=== PATIENT | male | born 1945 | race African-American/Black ===

== ENCOUNTER 2017-09-20 11:06 | Emergency (ER) | payer MEDICARE ==
--- NOTE | 2017-09-20 11:58 | RAD ---
LEFT FOOT 3 VIEWS: Date: 09/21/17 HISTORY: Injury. Pain. Fall yesterday. COMPARISON: None. FINDINGS: There are vascular calcifications. No significant soft tissue swelling. No fracture. Joint spaces are preserved. Lisfranc alignment is maintained. IMPRESSION: No post-traumatic change. POS: [facility]
--- NOTE | 2017-09-20 13:52 | RAD ---
3 VIEWS LEFT ANKLE: Date: 09/20/17 HISTORY: Pain. Fall. Trauma. COMPARISON: None. FINDINGS: Vascular calcifications are noted. Ankle mortise appears to be intact. Joint spaces appear to be pres erved. No significant soft tissue swelling. There is diffuse bone demineralization. No fracture. IMPRESSION: No post-traumatic change. If patient is still experiencing pain or point tenderness, further evaluation with MRI may be benefic ial. POS: [facility]
== END 2017-09-20 13:06 | disposition home or self-care (01) ==
LOC: ERS 11:06
DX: S93.412A Sprain of calcaneofibular ligament of left ankle, initial encounter (principal); I25.10 Atherosclerotic heart disease of native coronary artery without angina pectoris; I11.0 Hypertensive heart disease with heart failure; I50.9 Heart failure, unspecified; E11.9 Type 2 diabetes mellitus without complications; F17.210 Nicotine dependence, cigarettes, uncomplicated; Z99.2 Dependence on renal dialysis; Z79.899 Other long term (current) drug therapy; X50.1XXA Overexertion from prolonged static or awkward postures, initial encounter

== ENCOUNTER 2018-05-09 16:53 | Observation (INO) | payer MEDICARE, MEDICAID ==
[2018-05-09 18:02] LABS: #Basophils 0.1 thou/uL (0.0-0.2); #Eosinphils 0.1 thou/uL (0.0-0.7); #Lymphocytes 1.6 thou/uL (1.20-3.40); #Monocytes 0.5 thou/uL (0.11-0.59); #Neutrophils 3.7 thou/uL (1.40-6.50); %Basophils 1.1 % (0.0-1.0); %Eosinophils 1.5 % (0.0-10.0); %Lymphocytes 26.4 % (21.0-51.0); %Monocytes 7.9 % (0.0-10.0); Hemoglobin 13.9 g/dL (14.0-18.0); Mean Corpuscular Hemoglobin 29.3 pg (27.0-31.0); Mean Corpuscular Volume 86.3 fL (78.0-98.0); Mean Platelet Volume 8.7 fL (7.4-10.4); Platelet Count 120 thou/uL (130-400); Red Blood Cell (RBC) Count 4.74 mill/uL (4.70-6.10); White Blood Cell (WBC) Count 5.9 thou/uL (4.8-10.8)
[2018-05-09 18:27] LABS: ALT (SGPT) 9 U/L (8-55); AST (SGOT) 14 U/L (5-34); Alkaline Phosphatase 76 U/L (40-150); Anion Gap 9 mmol/L (10-20); BUN (Urea Nitrogen) 24 mg/dL (8.4-25.7); Bilirubin, Total 0.5 mg/dL (0.2-1.2); Calc. Creatinine Clearance 0 mL/min (70-130); Calcium 9.4 mg/dL (7.8-10.44); Carbon Dioxide 36 mmol/L (23-31); Chloride 98 mmol/L (98-107); Estimated GFR-MDRD 16; Glucose 157 mg/dL (83-110); Lipase 24 U/L (8-78); Potassium 3.9 mmol/L (3.5-5.1); Sodium 139 mmol/L (136-145)
--- NOTE | 2018-05-09 18:30 | RAD ---
PORTABLE CHEST: 05/09/18 INDICATION: Syncope. Lung field are clear. No infiltrate or effusion. Heart size is mildly enlarged. Postop sternotomy dai nge. Vascular markings normal. IMPRESSION: No acute process. POS: [facility]
[2018-05-09 18:48] LABS: CKMB 1.6 ng/mL (0-6.6)
[2018-05-09 21:22] VITALS: BMI 23.1
[2018-05-09 21:54] LABS: Troponin I 0.117 ng/mL (< 0.028)
[2018-05-09] MEDS ORDERED: traMADol HCl 50 MG TAB PO PRN (23:27)
[2018-05-09] MEDS ORDERED: cloNIDine 0.1 MG TAB PO PRN (23:27)
[2018-05-09] MEDS ORDERED: Ibuprofen 600 MG TAB PO PRN (23:27)
[2018-05-09] MEDS ORDERED: PROVENTIL INHALER 6.7 G (200 INHALATIONS) INH PRN (23:27)
[2018-05-09] MEDS ORDERED: hydrALAZINE 20 MG/ML VIAL SLOW IVP PRN (23:30)
[2018-05-09] MEDS ORDERED: traZODone HCl 50 MG TAB PO SCH (23:45)
[2018-05-09] MEDS ORDERED: Atorvastatin Calcium 20 MG TAB PO SCH (23:45)
[2018-05-09] MEDS ORDERED: hydrALAZINE 25 MG TAB PO SCH (23:45)
[2018-05-10 00:48] LABS: Troponin I 0.129 ng/mL (< 0.028)
[2018-05-10] MEDS ORDERED: HumaLOG 300 UNITS/3 ML VIAL SC PRN ×2 (08:09)
[2018-05-10] MEDS ORDERED: Dextrose 50% Abboject 50 ML SYRINGE SLOW IVP PRN (08:09)
[2018-05-10] MEDS ORDERED: Dextrose 5% in Water 1,000 ML IV PRN (08:09)
[2018-05-10] MEDS ORDERED: Donepezil HCl 10 MG TAB PO SCH (09:00)
[2018-05-10] MEDS ORDERED: VIT B COMPLEX AND C PO SCH (09:00)
[2018-05-10] MEDS ORDERED: Prevnar 13-Val Conj/PF 0.5 ML SYRINGE IM ONE (09:00)
[2018-05-10] MEDS ORDERED: FOLIC ACID PO SCH (09:00)
[2018-05-10] MEDS ORDERED: Folic Acid/Vit B Comp W-C PO SCH (09:00)
[2018-05-10] MEDS: Carvedilol 6.25 MG TAB PO SCH ×2 (10:06→16:39)
[2018-05-10] MEDS: hydrALAZINE 25 MG TAB PO SCH ×2 (10:07→16:38)
--- NOTE | 2018-05-10 10:18 | CON ---
DATE OF CONSULTATION: 05/09/2018 NEPHROLOGY CONSULTATION REASON FOR CONSULTATION: End-stage renal disease, for maintenance hemodialysis. HISTORY OF PRESENT ILLNESS: This is a 72-year-old gentleman who during dialysis, had nausea, vomiting, and diaphoresis and felt like he was going to pass out. The patient denies no headache, numbness, tingling, or weakness. The patient was not hypotensive. The patient was given IV fluids and resuscitation and felt fine. PAST MEDICAL HISTORY: 1. Hypertension. 2. End-stage renal disease, on dialysis. 3. History of missing dialysis. 4. History of congestive heart failure. 5. Diabetes mellitus. 6. Appendectomy. 7. Small bowel obstruction. 8. History of CABG. 9. History of tobacco use. SOCIAL HISTORY: No alcohol or drug use. FAMILY HISTORY: Negative for ESRD. ALLERGIES: REVIEWED. MEDICATIONS: Home medications list reviewed. REVIEW OF SYSTEMS: Fifteen-point review of systems was performed and negative except for positives noted above. NECK: No swelling or lumps. NOSE: No epistaxis or discharge. EYES: No diplopia or pain. MUSCULOSKELETAL: No joint pain. NEUROPSYCHIATRIC SYSTEMS: No suicidal ideation. No ideation. SKIN: Denies any rash or ulcer. CONSTITUTIONAL: No fever or chills. PHYSICAL EXAMINATION: GENERAL: The patient is awake and alert. VITAL SIGNS: Afebrile, pulse 61, breathing 16, and blood pressure 166/85. HEAD/NECK: Normocephalic. Atraumatic. EYES: EOMI. No deformity. EARS: Clear. No ulcers. NOSE: Intact. No lesions. MOUTH: Clear. No discharge. THROAT: Clear. No exudate. LUNGS: Clear. No crackles. CARDIAC: S1, S2. No rub. ABDOMEN: Benign. Bowel sounds positive. GENITALIA/RECTUM: Hay absent. BACK/EXTREMITIES: Edema 0+. NEUROLOGICAL: Alert and motor intact. LABORATORY DATA: Labs showed potassium 3.9. ASSESSMENT AND PLAN: 1. Stage 6 chronic kidney disease, plan hemodialysis on Saturday, Saturday, and Saturday. 2. Hypertension, stable. 3. Anemia, stable. 4. Medications based on GFR are appropriate. Job ID: [id number]
[2018-05-10 11:05] LABS: #Basophils 0.1 thou/uL (0.0-0.2); #Eosinphils 0.1 thou/uL (0.0-0.7); #Lymphocytes 2.5 thou/uL (1.20-3.40); #Monocytes 0.4 thou/uL (0.11-0.59); #Neutrophils 3.3 thou/uL (1.40-6.50); %Basophils 0.8 % (0.0-1.0); %Eosinophils 1.6 % (0.0-10.0); %Lymphocytes 38.6 % (21.0-51.0); %Monocytes 6.9 % (0.0-10.0); %Neutrophils 52.1 % (42.0-75.0); Hemoglobin 13.4 g/dL (14.0-18.0); Mean Corpuscular HGB CONC 34.6 g/dL (32.0-36.0); Mean Corpuscular Hemoglobin 29.8 pg (27.0-31.0); Mean Platelet Volume 8.7 fL (7.4-10.4); Platelet Count 120 thou/uL (130-400); Red Blood Cell (RBC) Count 4.52 mill/uL (4.70-6.10); White Blood Cell (WBC) Count 6.4 thou/uL (4.8-10.8)
[2018-05-10 11:20] LABS: ALT (SGPT) 7 U/L (8-55); AST (SGOT) 13 U/L (5-34); Albumin 3.7 g/dL (3.4-4.8); Alkaline Phosphatase 67 U/L (40-150); Anion Gap 13 mmol/L (10-20); BUN (Urea Nitrogen) 29 mg/dL (8.4-25.7); Bilirubin, Total 0.6 mg/dL (0.2-1.2); Calc. Creatinine Clearance 14 mL/min (70-130); Calcium 9.2 mg/dL (7.8-10.44); Carbon Dioxide 30 mmol/L (23-31); Chloride 102 mmol/L (98-107); Estimated GFR-MDRD 13; Globulin 3.4 g/dL (2.4-3.5); Glucose 100 mg/dL (83-110); Potassium 3.4 mmol/L (3.5-5.1); Protein, Total 7.1 g/dL (5.8-8.1)
[2018-05-10 11:22] LABS: Sodium 142 mmol/L (136-145)
--- NOTE | 2018-05-10 12:20 | PRG ---
DATE OF SERVICE: 05/10/2018 SUBJECTIVE: A 72-year-old gentleman, being seen for end-stage renal disease. The patient denies nausea, vomiting, or chest pain. OBJECTIVE: GENERAL: On examination, the patient is awake and alert. VITAL SIGNS: Afebrile, pulse 68, breathing 16, blood pressure 139/65. GENERAL APPEARANCE AND MENTAL STATUS: Fair. HEAD/NECK: Normocephalic. Atraumatic. EYES: EOMI. No deformity. EARS: Clear. No ulcers. NOSE: Intact. No lesions. MOUTH: Clear. No discharge. THROAT: Clear. No exudate. LUNGS: Clear. No crackles. CARDIAC: S1, S2. No rub. ABDOMEN: Benign. Bowel sounds positive. GENITALIA/RECTUM: Hay absent. BACK/EXTREMITIES: Edema 0+. NEUROLOGICAL: Alert and motor intact. LABORATORY DATA: Labs showed potassium 3.9. ASSESSMENT AND PLAN: 1. chronic kidney disease, stable. 2. Hypertension, stable. 3. for dialysis. Job ID: [id number]
--- NOTE | 2018-05-10 13:38 | EKG ---
Test Reason : Blood Pressure : / mmHG Vent. Rate : 055 BPM Atrial Rate : 055 BPM P-R Int : 246 ms QRS Dur : 156 ms QT Int : 508 ms P-R-T Axes : 042 -42 257 degrees QTc Int : 485 ms Sinus bradycardia with 1st degree A-V block Left axis deviation Left ventricular hypertrophy with QRS widening Inferior infarct , age undetermined Abnormal ECG Unchanged from 05/26/2014 Confirmed by BRENDA SKAGGS DO ([id number]), newspaper copy editor MARY SILVESTRE ([id number]) on 05/10/2018 1:37:59 PM Referred By: Confirmed By:BRENDA SKAGGS DO
[2018-05-10 16:14] VITALS: BP 144/68; TEMP 97.9
--- NOTE | 2018-05-10 20:20 | CON ---
DATE OF CONSULTATION: 05/10/2018 NEUROLOGY CONSULT REFERRING PHYSICIAN: Neal Milligan MD, certified surgical assistant. REASON FOR REFERRAL: Passing out and urination during dialysis. CHIEF COMPLAINT: Passing out during dialysis. HISTORY OF PRESENT ILLNESS: This is a 72-year-old male, who has been on dialysis for about 5 years. His is also present. He has passed out altogether about 4 to 5 times during dialysis over the years. He states that he does not pass out at any other time. He says that this passing out sensation is accompanied by feeling very nauseated and he may break out into a sweat. He may throw up when it happens and he may lose control of his bladder. He is only out for a few seconds and he knows where he is when he comes to. There was no tonic-clonic activity. His chronic medical problems include coronary artery disease, chronic renal failure, diabetes, and hypertension. He also has a history of CABG. PAST MEDICAL HISTORY: Hypertension; end-stage renal disease, on dialysis; congestive heart failure; diabetes; appendectomy; and CABG. SOCIAL HISTORY: He used to smoke. No current alcohol or drug abuse. FAMILY HISTORY: The patient does not know of any familial diseases. REVIEW OF SYSTEMS: A 15-point review was performed and is negative except for the passing out and chronic renal failure. Also his states that he has been losing his memory over the years. The patient used to box a lot and had some head injuries. He is currently on Aricept. PHYSICAL EXAMINATION: GENERAL: He is awake and alert, talkative, pleasant. VITAL SIGNS: Temperature is 98.3, pulse is 60, respiratory rate 16, O2 saturation is 97%, and blood pressure 127/66. HEENT: Negative. LUNGS: Clear. HEART: No murmurs. EXTREMITIES: No clubbing, cyanosis, or edema. SKIN: No rashes. JOINTS: No swelling. NEUROLOGICAL: He is awake, alert, and oriented x3. Cranial nerves 2 through 12 tested normally. Pupils 2 mm and reactive. Discs sharp. Motor; 5/5 strength in the arms and legs. DTRs 2+. Toes downgoing. Sensation is normal to light touch. Coordination, [id number] and [id number] is normal. Review of his old chart shows that he had a CT of the head in 2014, which was negative. LABORATORY DATA: Current labs on 05/10/2018 shows hemoglobin of 13.4, hematocrit 38.8, and platelet count slightly low at 120,000. Chemistries showed, on 07/11/2017, sodium of 142, potassium 3.4, chloride 102, CO2 of 30, BUN is 29, creatinine is 5.40. Estimated GFR is 13. Glucose is 271, calcium 9.2, total bilirubin 0.6, AST 13, ALT 7. Total serum protein is 7.1, albumin 3.7. MEDICATIONS: Current medications are; 1. Albuterol if needed. 2. Lipitor. 3. Coreg. 4. Aricept 10 mg a day. 5. Hydralazine 25 mg p.o. three times a day. IMPRESSION: His episodes of passing out are much more consistent with vasovagal syncope rather than with any seizure disorder or transient ischemic attack or cerebrovascular accident. Consider possibility of becoming volume depleted, which may result in a vasovagal attack. Consider also maybe he has bradycardia. Note that, he does have an EKG on the chart that was read as showing sinus bradycardia with atrial rate of 55 beats per minute with first-degree AV block. There were some cardiac enzymes that were elevated. Troponin I was 0.126, another one was 0.117, and another one 0.129. Note that he is on telemetry and an echocardiogram is being done at this time. Episodes of syncope, more likely related to vasovagal or bradycardia attacks or hypertension attacks, really not consistent at all with seizures or transient ischemic attacks or strokes. Discussed with the patient no further neurological workup is indicated now. Note, attention to cardiac causes or possibly becoming dehydrated during the dialysis discussed with the patient and his . No further neurological recommendations. We will sign off. Job ID: [id number]
[2018-05-10] MEDS ORDERED: traZODone HCl 50 MG TAB PO SCH (21:00)
[2018-05-10] MEDS ORDERED: Atorvastatin Calcium 20 MG TAB PO SCH (21:00)
--- NOTE | 2018-05-10 21:59 | HP ---
CHIEF COMPLAINT: Nausea, vomiting, and diarrhea. HISTORY OF PRESENT ILLNESS: This is a 72-year-old male with past medical history of end-stage renal disease, on hemodialysis Mondays and Fridays; coronary artery disease; CHF; type 2 diabetes mellitus; hypertension; presenting with nausea, vomiting, and dizziness. Per the patient, he was getting dialysis when he started to feel dizzy and the patient stated that he lost consciousness for a brief period a few seconds and regained consciousness. The patient stated that he also vomited x2, nonbilious nonbloody vomitus. The patient stated that this brought him to the hospital. At this time, the patient states that he has been feeling much better. He does not have any fever, chills, nausea, vomiting, headaches, dizziness, chest pain, palpitations, and abdominal pain. ED COURSE: In the ED, the patient was given aspirin 324, and the patient's blood pressure was checked, which was 173/78. The patient was then admitted to telemetry observation to be further monitored. REVIEW OF SYSTEMS: Positive for nausea, vomiting, and dizziness, otherwise as documented in the HPI. All other systems were reviewed and are negative. PAST MEDICAL HISTORY: 1. End-stage renal disease, on hemodialysis Mondays and Fridays. 2. Coronary artery disease. 3. Congestive heart failure. 4. Type 2 diabetes mellitus. 5. Hypertension. SURGICAL HISTORY: Appendectomy, small bowel obstruction, surgical history of coronary artery bypass and graft x2 vessels, left upper arm AV fistula. SOCIAL HISTORY: The patient denies any drug use. Denies any alcohol use. The patient used to smoke one pack per day. FAMILY HISTORY: Reviewed and noncontributory. ALLERGIES: ATIVAN AND LORAZEPAM. CURRENT MEDICATIONS: The patient is on, 1. Aspirin 325 mg. 2. Carvedilol 12.5 mg. 3. Clonidine 0.1 mg. 4. Dialyvite 800. 5. Famotidine. 6. Glipizide 2.5 mg. 7. Hydralazine mg b.i.d. 8. Sertraline 50 mg daily. 9. Atorvastatin 20 mg. PHYSICAL EXAMINATION: VITAL SIGNS: Blood pressure 173/78, pulse is 57, respiratory rate of 16, temperature of 97.7, and respiratory rate of 16. GENERAL: The patient is alert and oriented x3, not in acute distress. The patient is able to speak in full sentences. HEENT: Normocephalic, atraumatic. Pupils are equally round and reactive to light. Extraocular movements are intact. No scleral icterus. No conjunctival pallor. Mucous membranes are moist. LUNGS: Clear to auscultation bilaterally. No wheezing, no rales, no rhonchi appreciated. CARDIAC: Positive S1, S2, bradycardic. ABDOMEN: Soft, nontender, and nondistended. Positive bowel sounds in all quadrants. No abdominal distention. No peritoneal signs. No rigidity. No guarding. EXTREMITIES: The patient has left upper extremity fistula noted. The patient does have good motor strength and good pulses bilaterally in the upper extremities. At the lower extremities, the patient has no edema. The patient has good strength bilaterally at the lower extremity. NEUROLOGIC: Cranial nerves II through XII grossly intact. No neurologic deficits noted. SKIN: Warm, dry, and intact. DIAGNOSTIC DATA: EKG shows sinus bradycardia. Imaging; chest x-ray of the chest shows no cardiomegaly, no CHF, no effusions, no acute process. Labs; WBC is within normal limits. Chemistries, pertinent positive, creatinine is 4.45, carbon dioxide of 36. Troponin 0.126, 0.117, 0.129. Lipase is 24. ASSESSMENT AND PLAN: This is a 72-year-old male, presenting with dizziness, nausea and vomiting, likely due to neurocardiogenic cause. At this point, the patient's EKG shows the patient had bradycardia and the patient is currently asymptomatic. We have ordered echo, we will follow up on echo. We will continue the patient on current management, and will follow up morning labs. 1. Diabetes mellitus type 2. We will monitor the patient's blood sugars. We will keep blood sugars between 140 to 180. 2. Coronary artery disease. We will continue the patient on home medications. 3. Congestive heart failure. Currently, the patient is not in any acute failure. We will continue the patient on current management. 4. Hypertension. The patient's blood pressure is mildly elevated at this time. We will continue the patient on his home blood pressure medications. 5. Deep vein thrombosis and gastrointestinal prophylaxis. Job ID: [id number]
--- NOTE | 2018-05-11 04:54 | DIS ---
DATE OF ADMISSION: 05/09/2018 DATE OF DISCHARGE: 05/10/2018 CHIEF COMPLAINT: Nausea and vomiting. DISCHARGE DIAGNOSES: 1. Nausea and vomiting, unspecified, resolved. 2. End-stage renal disease. 3. Congestive heart failure. 4. Diabetes. 5. Hypertension. CONSULTING PHYSICIAN: Dr. Milligan of Nephrology. HOSPITAL COURSE: Mr. Gordon is a pleasant 72-year-old man, who was brought in following an episode of hyperemesis while undergoing dialysis. He states this has been a recurring problem and this is the fifth episode he has had. It typically occurs shortly after his dialysis has been started. He denies any hematemesis. No associated abdominal pain or bowel changes. The patient has had no further symptoms since admission and has felt well himself. He states that when it did come on, he felt diaphoretic and as if he were going to pass out. He denies having any syncopal episodes. No associated headaches or dizziness. His vital signs remained stable. He received IV fluids during his stay. He has undergone workup including an ECG that showed sinus bradycardia with first-degree AV block as well as left axis deviation and left ventricular hypertrophy with QRS widening. Inferior infarct noted, age undetermined. This is unchanged from previous ECG done in April 2014. He also underwent a chest x-ray, which was unremarkable. The patient has undergone an echocardiogram. It was felt his symptoms were not cardiac related. The patient continues to wait on the results. He is requesting to be discharged home. Following further discussion with Dr. Mariscal, who has agreed to discharge the patient home with plans to call him once we have results of his echo. The patient is very happy with this. On the day of discharge, again, he remains without any complaints. PHYSICAL EXAMINATION: GENERAL: He appears well and in no acute distress. VITAL SIGNS: Stable. HEART: Unremarkable. LUNGS: Clear bilaterally. ABDOMEN: Soft, nontender, and nondistended. He has been eating and drinking well without any difficulties. EXTREMITIES: Without any lower limb edema or calf tenderness. PROCEDURES: None. LABORATORY DATA: White blood count 6.4, hemoglobin 13.4, hematocrit 38.8, and platelets 120. Sodium 142, potassium 3.4, chloride 102, BUN 29, creatinine 5.40, eGFR 13, and glucose 100. Total bilirubin 0.6. LFTs unremarkable. CK-MB 1.6. Serial TnIs were 0.126, 0.117, and 0.129, likely associated to end-stage renal disease and chronic CHF. IMAGING DATA: 1. Chest x-ray unremarkable. 2. ECG, no changes since April 2014 as mentioned above. Echo, report pending. DISCHARGE MEDICATIONS: He will continue home medications. No new medications started. DISCHARGE CONDITION: Stable. DISCHARGE ACTIVITY: As tolerated. DISCHARGE DIET: Heart healthy. Renal diet. FOLLOWUP: The patient was advised to follow up with his PCP and compound worker within 1 to 2 weeks. DISPOSITION: Home on May 10, 2018. The patient discussed with Dr. Mariscal, who is in agreement with plan as above. Job ID: [id number]
== END 2018-05-10 18:30 | disposition home or self-care (01) ==
LOC: ERS 16:53 → 2SW 20:46
PROVIDERS: ADMIT Family Medicine; ATTEND Family Medicine
DX: R11.2 Nausea with vomiting, unspecified (principal); I13.2 Hypertensive heart and chronic kidney disease with heart failure and with stage 5 chronic kidney disease, or end stage renal disease; E11.22 Type 2 diabetes mellitus with diabetic chronic kidney disease; N18.6 End stage renal disease; I50.9 Heart failure, unspecified; D63.1 Anemia in chronic kidney disease; I25.10 Atherosclerotic heart disease of native coronary artery without angina pectoris; R55 Syncope and collapse; Z99.2 Dependence on renal dialysis; Z88.8 Allergy status to other drugs, medicaments and biological substances; Z79.82 Long term (current) use of aspirin; Z79.84 Long term (current) use of oral hypoglycemic drugs; Z79.899 Other long term (current) drug therapy; Z95.1 Presence of aortocoronary bypass graft; Z87.891 Personal history of nicotine dependence
CPT/HCPCS: 71045; 80053 ×2; 82553; 82962; 83690; 84484 ×3; 85025 ×2; 93005; 93306; 99285; G0378 ×2; 36415; 36416

== ENCOUNTER 2019-05-02 17:33 | Inpatient (IN) | payer MEDICARE, MEDICAID ==
[2019-05-02 18:37] LABS: #Lymphocytes 0.7 thou/uL (1.20-3.40); #Monocytes 0.6 thou/uL (0.11-0.59); #Neutrophils 4.1 thou/uL (1.40-6.50); %Basophils 0.5 % (0.0-1.0); %Eosinophils 0.3 % (0.0-10.0); %Monocytes 10.3 % (0.0-10.0); %Neutrophils 75.9 % (42.0-75.0); Hemoglobin 13.3 g/dL (14.0-18.0); Mean Corpuscular HGB CONC 34.4 g/dL (32.0-36.0); Mean Corpuscular Hemoglobin 30.2 pg (27.0-31.0); Mean Corpuscular Volume 87.8 fL (78.0-98.0); Mean Platelet Volume 8.8 fL (7.4-10.4); Platelet Count 104 thou/uL (130-400); RBC Distribution Width 12.7 % (11.5-14.5); White Blood Cell (WBC) Count 5.4 thou/uL (4.8-10.8)
[2019-05-02 18:56] LABS: ALT (SGPT) 10 U/L (8-55); AST (SGOT) 18 U/L (5-34); Albumin 3.7 g/dL (3.4-4.8); Alkaline Phosphatase 63 U/L (40-110); Anion Gap 14 mmol/L (10-20); BUN (Urea Nitrogen) 35 mg/dL (8.4-25.7); Bilirubin, Total 0.8 mg/dL (0.2-1.2); Calc. Creatinine Clearance 0 mL/min (70-130); Calcium 9.7 mg/dL (7.8-10.44); Carbon Dioxide 25 mmol/L (23-31); Chloride 104 mmol/L (98-107); Estimated GFR-MDRD 9; Globulin 3.7 g/dL (2.4-3.5); Glucose 120 mg/dL (83-110); Potassium 3.9 mmol/L (3.5-5.1); Protein, Total 7.4 g/dL (5.8-8.1); Sodium 139 mmol/L (136-145)
[2019-05-02 19:11] LABS: Bacteria/HPF None Seen HPF (None Seen); Bilirubin Negative (Negative); Blood, Urine Negative (Negative); Clarity Clear (Clear); Glucose, Urine (Dipstick) 70 mg/dL (Negative); Leukocyte Negative Leu/uL (Negative); Nitrite Negative (Negative); Protein, Urine (Dipstick) 100 mg/dL (Neg-Trace); RBC/HPF 0-3 HPF (0-3); Squamous Epithelial 0-3 HPF (0-3); WBC/HPF 0-3 HPF (0-3)
--- NOTE | 2019-05-02 19:16 | RAD ---
Chest one view HISTORY: Cough and fever. COMPARISON: 05/09/2018. FINDINGS: Cardiac silhouette is magnified and upper limits of normal in size. Pulmonary vasculature i s unremarkable. Lungs are slightly hyperinflated. Mediastinum is midline with postoperative changes and aortic calcification. Vascular stent over the left axillary vessels. Ill-defined parenchymal opacity projects over the left posterior lung base. IMPRESSION: Left lower lobe infiltrate. Consider left lower lobe pneumonia. Atherosclerosis.
[2019-05-02 19:18] LABS: CKMB 1.5 ng/mL (0-6.6)
[2019-05-02] MEDS ORDERED: cefTRIAXone\\ROCEPHIN 1 GM VIAL ONE (19:36)
[2019-05-02] MEDS ORDERED: Sodium Chloride 0.9% 100 ML ONE (19:37)
[2019-05-02] MEDS ORDERED: hydrALAZINE 20 MG/ML VIAL ONE (20:20)
[2019-05-02] MEDS ORDERED: Azithromycin 500 MG VIAL ONE (20:20)
[2019-05-02] MEDS ORDERED: Aspirin Chewable 81 MG TAB ONE (21:11)
[2019-05-02] MEDS ORDERED: Ondansetron PF 4 MG/2 ML Vial ONE (21:11)
[2019-05-02 22:13] LABS: Troponin I 0.413 ng/mL (< 0.028)
[2019-05-02] MEDS ORDERED: cloNIDine 0.1 MG TAB PO PRN ×2 (22:14→22:43)
[2019-05-02] MEDS ORDERED: HYDROcodone/Acetaminophen 7.5/325 mg Tablet PO PRN (22:14)
[2019-05-02] MEDS ORDERED: Morphine 2 MG/ML SYRINGE SLOW IVP PRN (22:14)
[2019-05-02] MEDS ORDERED: Ondansetron PF 4 MG/2 ML Vial IVP PRN (22:14)
[2019-05-02] MEDS ORDERED: HYDROcodone/Acetaminophen 5/325 mg Tablet PO PRN (22:14)
[2019-05-02] MEDS ORDERED: hydrALAZINE 20 MG/ML VIAL SLOW IVP PRN (22:14)
[2019-05-02] MEDS ORDERED: Acetaminophen 325 MG TAB PO PRN (22:14)
[2019-05-02] MEDS ORDERED: Bisacodyl 5 MG TAB PO PRN (22:14)
[2019-05-02] MEDS ORDERED: Promethazine HCl 12.5 MG in Sodium Chloride 0.9% 50 ML IVPB PRN (22:14)
[2019-05-02] MEDS ORDERED: Bisacodyl 10 MG SUPP PR PRN (22:14)
--- NOTE | 2019-05-02 22:19 | PDOC.HHP ---
Hospitalist HPI - History of Present Illness Fever, cough History of Present Illness: Patient is a 73 year old male with PMH ESRD on HD Saturday and Saturday (Dr Milligan) who presents to ED for fevers, cough, shortness of breath, weakness for last 2- 3 days. Patient also has been nauseous and unable to hold down any food, so has been unable to take his home medications including blood pressure medications. He reports generalized body aches as well as malaise. 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 In the ER, blood pressure initially was 176/86, ernesto to SBP of 210 , patient received IV hydralazine with improvement in SBP to 160s, patient denies chest pain, shortness of breath. Also of note, EKG concerning for atrial flutter with rate 83 on EKG, which patient and family believe is a new diagnosis , patient sees a residential mortgage underwriter Dr Izquierdo at [facility]. There was also Q waves in 2,3 aVF and some T wave inversions, which ED reports as new. Troponins were elevated to 0.23 and then to 0.4. Flu swab negative. CXR revealed LLL infiltrate. Patient to be admitted to telemetry for further management. Hospitalist ROS - Review of Systems Constitutional: reports: fever, chills, sweats, weakness, malaise Eyes: denies: vision change, redness ENT: denies: mouth swelling, throat pain Respiratory: reports: cough, shortness of breath, sputum, wheezing Cardiovascular: denies: chest pain, palpitations Gastrointestinal: reports: nausea, vomiting. denies: abdominal pain Musculoskeletal: reports: other (diffuse body aches) Skin: denies: rash, lesions Neurological: denies: numbness, change in speech, confusion, seizures All other systems reviewed; all pertinent +/- noted in HPI/Subj Hospitalist History - Past Medical History Other Medical History: ESRD, CAD, CHF, T2DM, HTN - Past Surgical History Other Surgical History: Appendectomy, SBO, CABG 2v, LUE AV fistule - Family History Family History: reports: no pertinent history - Social History Smoking Status: Former smoker Alcohol: reports: None Drugs: reports: none - Exam General Appearance: NAD, awake alert Eye: PERRL, anicteric sclera ENT: normocephalic atraumatic, no oropharyngeal lesions, moist mucosa Neck: supple, no JVD Heart: RRR, no murmur, no gallops, no rubs Respiratory: rales, rhonchi Respiratory - other findings: L lower lung field Gastrointestinal: soft, non-tender, non-distended, normal bowel sounds Extremities: no cyanosis, no clubbing, no edema Skin: no lesions, no rashes Neurological: cranial nerve grossly intact, normal sensation to touch, no weakness, no focal deficits, no new deficit Musculoskeletal: normal tone, normal strength Psychiatric: normal affect, normal behavior, A&O x 3, lethargic Hospitalist Results - Labs Result Diagrams: 05/02/19 18:22 05/02/19 18:22 Lab results: WBC 5.4 thou/uL (4.8-10.8) 05/02/19 18:22 Hgb 13.3 g/dL (14.0-18.0) L 05/02/19 18:22 Hct 38.6 % (42.0-52.0) L 05/02/19 18:22 MCV 87.8 fL (78.0-98.0) 05/02/19 18:22 Plt Count 104 thou/uL (130-400) L 05/02/19 18:22 Neutrophils % 75.9 % (42.0-75.0) H 05/02/19 18:22 Sodium 139 mmol/L (136-145) 05/02/19 18:22 Potassium 3.9 mmol/L (3.5-5.1) 05/02/19 18:22 Chloride 104 mmol/L (98-107) 05/02/19 18:22 Carbon Dioxide 25 mmol/L (23-31) 05/02/19 18:22 BUN 35 mg/dL (8.4-25.7) H 05/02/19 18:22 Creatinine 7.29 mg/dL (0.7-1.3) H 05/02/19 18:22 Glucose 120 mg/dL (83-110) H 05/02/19 18:22 Lactic Acid 1.5 mmol/L (0.5-2.2) 05/02/19 20:15 Calcium 9.7 mg/dL (7.8-10.44) 05/02/19 18:22 Total Bilirubin 0.8 mg/dL (0.2-1.2) 05/02/19 18:22 AST 18 U/L (5-34) 05/02/19 18:22 ALT 10 U/L (8-55) 05/02/19 18:22 Alkaline Phosphatase 63 U/L (40-110) 05/02/19 18:22 CK-MB (CK-2) 1.5 ng/mL (0-6.6) 05/02/19 18:22 Troponin I 0.413 ng/mL (< 0.028) H* 05/02/19 21:36 B-Natriuretic Peptide 2805.0 pg/mL (0-100) H 05/02/19 18:22 Serum Total Protein 7.4 g/dL (5.8-8.1) 05/02/19 18:22 Albumin 3.7 g/dL (3.4-4.8) 05/02/19 18:22 Urine Ketones Negative mg/dL (Negative) 05/02/19 18:36 Urine Blood Negative (Negative) 05/02/19 18:36 Urine Nitrite Negative (Negative) 05/02/19 18:36 Ur Leukocyte Esterase Negative Lc/uL (Negative) 05/02/19 18:36 Urine RBC 0-3 HPF (0-3) 05/02/19 18:36 Urine WBC 0-3 HPF (0-3) 05/02/19 18:36 Ur Squamous Epith Cells 0-3 HPF (0-3) 05/02/19 18:36 Urine Bacteria None Seen HPF (None Seen) 05/02/19 18:36 - EKG Interpretation EKG: atrial fib/flutter rate [address] changes nonspecific T wave changes Hospitalist H&P A/P - Plan Plan: Patient is a 73 year old male with PMH ESRD on HD Saturday and Saturday (Dr Milligan) who presents to ED for fevers, cough, shortness of breath, weakness for last 2- 3 days, being treated for the following: # community acquired pneumonia w/ sepsis - admit to telemetry, continue azithromycin and ceftriaxone - follow respiratory cultures, blood cultures, urine culture # hypoxia - new, secondary to pneumonia likely, wean o2 as tolerated # ESRD - consult Dr Milligan # HTN urgency - likely due to illness and inability to keep down home meds, will order several nausea medicines as well as PRN IV HTN meds # atrial fibrillation/flutter - unknown if this has been diagnosed in the past, patient sees Dr Izquierdo of cardiology as outpatient, is rate controlled - could page home residential mortgage underwriter on Saturday to discuss or consult cardiology, at this time will observe and defer cardiology consult, will start eliquis, rate is controlled, PRN labetalol for HTN in chart - patinet used to be on coreg but per this was stopped due to low BPs, she will obtain home med list tomorrow to confirm # debility - PT/OT to screen for rehab needs
[2019-05-02] MEDS ORDERED: Labetalol HCl 100 MG/20 ML VIAL SLOW IVP PRN (22:42)
[2019-05-03 01:28] LABS: Troponin I 0.335 ng/mL (< 0.028)
[2019-05-03] MEDS: cefTRIAXone\\ROCEPHIN 1 GM in Sodium Chloride 0.9% 100 ML IVPB SCH ×2 (01:58→20:43)
[2019-05-03] MEDS ORDERED: Enoxaparin Sodium 80 MG/0.8 ML SYRINGE SC SCH ×2 (02:15→21:00)
[2019-05-03 04:50] LABS: #Lymphocytes 0.9 thou/uL (1.20-3.40); #Monocytes 0.9 thou/uL (0.11-0.59); #Neutrophils 6.3 thou/uL (1.40-6.50); %Basophils 0.1 % (0.0-1.0); %Lymphocytes 11.4 % (21.0-51.0); %Neutrophils 77.4 % (42.0-75.0); Hemoglobin 12.9 g/dL (14.0-18.0); Mean Corpuscular HGB CONC 33.7 g/dL (32.0-36.0); Mean Corpuscular Hemoglobin 29.6 pg (27.0-31.0); Mean Platelet Volume 8.9 fL (7.4-10.4); Platelet Count 100 thou/uL (130-400); RBC Distribution Width 12.8 % (11.5-14.5); Red Blood Cell (RBC) Count 4.36 mill/uL (4.70-6.10); White Blood Cell (WBC) Count 8.1 thou/uL (4.8-10.8)
[2019-05-03 05:02] LABS: Anion Gap 15 mmol/L (10-20); BUN (Urea Nitrogen) 38 mg/dL (8.4-25.7); Calc. Creatinine Clearance 10 mL/min (70-130); Calcium 9.6 mg/dL (7.8-10.44); Carbon Dioxide 23 mmol/L (23-31); Chloride 103 mmol/L (98-107); Estimated GFR-MDRD 9; Glucose 136 mg/dL (83-110); Magnesium 2.1 mg/dL (1.6-2.6); Phosphorus 4.5 mg/dL (2.3-4.7); Potassium 3.9 mmol/L (3.5-5.1); Sodium 137 mmol/L (136-145)
[2019-05-03 05:11] LABS: Troponin I 0.404 ng/mL (< 0.028)
[2019-05-03 08:20] LABS: Troponin I 0.425 ng/mL (< 0.028)
[2019-05-03] MEDS: hydrALAZINE 25 MG TAB PO SCH ×4 (08:34→20:44)
[2019-05-03] MEDS: Aspirin 81 mg Enteric Coated Tablet PO SCH (08:34)
[2019-05-03] MEDS: Azithromycin 250 MG TAB PO SCH (08:34)
[2019-05-03] MEDS: Senokot S 8.6-50 MG TAB PO SCH (08:35)
[2019-05-03] MEDS ORDERED: Heparin 5,000 UNITS/ML VIAL SC SCH (09:00)
[2019-05-03 10:16] LABS: Hemoglobin 12.8 g/dL (14.0-18.0); Platelet Count 86 thou/uL (130-400)
[2019-05-03 10:36] LABS: Troponin I 0.486 ng/mL (< 0.028)
--- NOTE | 2019-05-03 15:56 | CON ---
DATE OF CONSULTATION: REASON FOR CONSULTATION: End-stage renal disease on maintenance hemodialysis. HISTORY OF PRESENT ILLNESS: A very pleasant 73-year-old gentleman, who presented to the hospital last night for fever and cough. The patient was admitted for pneumonia. The patient denies any nausea, vomiting, or chest pain. PAST MEDICAL HISTORY: Hypertension, ESRD, diabetes mellitus, history of tobacco abuse, history of AV fistula, tunneled dialysis catheter, history of appendectomy, CABG, and small bowel obstruction. FAMILY HISTORY: Negative for ESRD. SOCIAL HISTORY: No alcohol or drug use ALLERGIES: REVIEWED. HOME MEDICATIONS: List reviewed. HOSPITAL MEDICATIONS: List reviewed. REVIEW OF SYSTEMS: A 15-point review of system was performed, negative except for positives noted above. GENERAL: HEAD: NECK: No swelling or lumps. NOSE: No epistaxis or discharge. EYES: No diplopia or pain. RESPIRATORY: CARDIOVASCULAR: GASTROINTESTINAL: /AUTOMATION SOFTWARE ENGINEER: MUSCULOSKELETAL: No joint pain. NEUROPSYCHIATIC SYSTEMS: No suicidal ideation. No ideation. SKIN: Denies any rash or ulcer. CONSTITUTIONAL: No fever or chills. PHYSICAL EXAMINATION: CONSTITUTIONAL: The patient is awake and alert. VITAL SIGNS: , breathing 16, and blood pressure was 156/92. GENERAL APPEARANCE AND MENTAL STATUS: Fair. HEAD/NECK: Normocephalic. Atraumatic. EYES: EOMI. No deformity. EARS: Clear. No ulcers. NOSE: Intact. No lesions. MOUTH: Clear. No discharge. THROAT: Clear. No exudate. LUNGS: Clear. No crackles. CARDIAC: S1, S2. No rub. ABDOMEN: Benign. Bowel sounds positive. GENITALIA/RECTUM: Hay absent. BACK/EXTREMITIES: Edema 0+. NEUROLOGICAL: Alert and motor intact. SKIN: LYMPHATICS: LABORATORY DATA: Labs reviewed. ASSESSMENT AND PLAN: Stage 6 chronic kidney disease, plan dialysis tomorrow. Hypertension, stable. Anemia, stable. Medications based on GFR appropriate. Job ID: [id number]
--- NOTE | 2019-05-03 16:34 | CON ---
DATE OF CONSULTATION: 05/03/2019 REASON FOR CONSULTATION: Increased troponin in the patient on end-stage renal disease with probable pneumonia. PRIMARY LOG ROLLER: Dr. Brink at [facility]. HISTORY OF PRESENT ILLNESS: Mr. Gordon is a 73-year-old gentleman with history of coronary artery bypass grafting previously seen and evaluated here by Dr. Masters in December of 2013. At some point in the meantime, the patient has had to go on dialysis. The patient is unable to tell me when, but he has been on dialysis for several years. He was referred to the emergency room when he was found to have fever and chills and thought to have pneumonia. The patient did not have chest pain or pressure. The patient also had nausea and vomiting. The patient was not taking aspirin. The family indicates that he takes that sporadically. The patient was hypertensive in the emergency room. REVIEW OF SYSTEMS: GENERAL: According to the chart, positive for fever and chills. VISION: No changes. HEARING: No changes. PULMONARY: Positive for cough and difficulty breathing. CARDIAC: No chest pain or pressure. GASTROINTESTINAL: No current vomiting. He was nauseated earlier. SKIN: No rashes. PAST MEDICAL HISTORY: Previous bypass surgery in the at [facility]. Also, longstanding end-stage renal disease. FAMILY HISTORY: Negative for heart disease at a young age. SOCIAL HISTORY: Former smoker. PHYSICAL EXAMINATION: GENERAL: This is a chronically ill-appearing elderly gentleman, looks much older than his age of 73. VITAL SIGNS: Blood pressure is variable 156/92 and pulse 90, it is irregular. LUNGS: There are diffuse rhonchi throughout the lung vazquez. CARDIAC: Irregularly irregular. I do not hear murmur, rub, or gallop. ABDOMEN: Soft and nontender. No hepatosplenomegaly. EXTREMITIES: Warm and dry. No clubbing, no cyanosis, no edema. I do not feel pedal pulses. PERTINENT LABORATORY DATA: The creatinine is 7.25 and potassium is 3.9. Troponin 0.486. EKG, some of it looks like atrial flutter. Otherwise, some other looks like atrial fibrillation. There is no classic sawtooth pattern flutter that I can detect. Some of it looks like it could be left-sided atrial flutter. ASSESSMENT: 1. Thought to have pneumonia. 2. Sinus bradycardia on EKG in April 2018. 3. Previous bypass surgery. 4. Pneumonia. 5. Bronchitis with diffuse rhonchi. 6. Fever. 7. End-stage renal disease, on hemodialysis. PLAN: 1. He has received a dose of enoxaparin x1. Would give him a low-dose maintenance in view of the renal failure. 2. Aspirin 81 mg a day. 3. Antibiotics. 4. We will need to follow up with Dr. Brink as an outpatient concerning his cardiac status. 5. Echocardiogram to be ordered. Job ID: [id number]
--- NOTE | 2019-05-03 20:09 | PDOC.HOSPP ---
- Subjective Encounter Date: 05/03/19 Encounter Time: 10:15 Subjective: pt up in bed complains of sob - Objective Vital Signs & Weight: Vital Signs (12 hours) Temp Pulse Resp BP BP Pulse Ox 05/03/19 16:47 71 132/87 05/03/19 16:00 98.0 F 71 20 182/79 H 92 L 05/03/19 12:51 156/92 H 05/03/19 12:00 97.9 F 97 16 166/104 H 94 L 05/03/19 10:17 189/88 H Weight Weight 175 lb I&O: 05/02/19 05/03/19 05/04/19 06:59 06:59 06:59 Intake Total 480 Balance 480 Result Diagrams: 05/06/19 09:20 05/06/19 09:20 Additional Labs: Accuchecks 05/03/19 05/03/19 16:50 11:31 POC Glucose 175 H 126 H Hospitalist ROS - Review of Systems Respiratory: reports: shortness of breath Cardiovascular: denies: chest pain, palpitations, orthopnea, paroxysmal noc. dyspnea, edema, light headedness, other Gastrointestinal: denies: nausea, vomiting, abdominal pain, diarrhea, constipation, melena, hematochezia, other - Medication Medications: Active Medications Generic Name Dose Route Start Last Admin Trade Name Coral PRN Reason Stop Dose Admin Aspirin 81 mg 05/03/19 09:00 05/03/19 08:34 Ecotrin PO 81 mg DAILY BARBARA Administration Azithromycin 250 mg 05/03/19 09:00 05/03/19 08:34 Zithromax PO 05/06/19 09:01 250 mg DAILY BARBARA Administration Hydralazine HCl 25 mg 05/03/19 09:00 05/03/19 16:52 Apresoline PO Not Given TID BARBARA Ceftriaxone Sodium 1 gm/ 100 mls @ 200 mls/hr 05/02/19 20:00 05/03/19 01:58 Sodium Chloride IVPB 05/05/19 20:29 Not Given Q24HR BARBARA Pantoprazole Sodium 40 mg 05/03/19 09:00 05/03/19 08:35 Protonix PO 40 mg DAILY BARBARA Administration Senna/Docusate Sodium 1 tab 05/03/19 09:00 05/03/19 08:35 Senokot S PO 1 tab BID BARBARA Administration Sertraline HCl 100 mg 05/03/19 09:00 05/03/19 08:35 Zoloft PO 100 mg DAILY BARBARA Administration - Exam Heart: negative: RRR, no murmur, no gallops, no rubs, normal peripheral pulses, irregular, diminshed peripheral pulses, murmur present, II/IV, III/IV Respiratory: rhonchi, wheezes Gastrointestinal: negative: soft, non-tender, non-distended, normal bowel sounds , no palpable masses, no hepatomegaly, no splenomegaly, no bruit, no guarding, no rigidity, tender to palpation, distended, diminished bowl sounds, voluntary guarding Hosp A/P (1) Pneumonia Code(s): J18.9 - PNEUMONIA, UNSPECIFIED ORGANISM Status: Acute (2) NSTEMI (non-ST elevated myocardial infarction) Code(s): I21.4 - NON-ST ELEVATION (NSTEMI) MYOCARDIAL INFARCTION Status: Acute (3) SOB (shortness of breath) Code(s): R06.02 - SHORTNESS OF BREATH Status: Acute (4) DM type 2 (diabetes mellitus, type 2) Status: Chronic (5) ESRD (end stage renal disease) on dialysis Code(s): N18.6 - END STAGE RENAL DISEASE; Z99.2 - DEPENDENCE ON RENAL DIALYSIS Status: Chronic - Plan pt up in bed complains of some sob. will continue abx for now.cardiology consulted. will continue lovonox for now. will get records from [facility].
[2019-05-03] MEDS: traZODone HCl 50 MG TAB PO SCH (20:43)
[2019-05-03] MEDS: Atorvastatin Calcium 20 MG TAB PO SCH (20:44)
[2019-05-04] MEDS: Senokot S 8.6-50 MG TAB PO SCH ×2 (02:16→08:39)
[2019-05-04 05:16] LABS: #Lymphocytes 0.9 thou/uL (1.20-3.40); #Monocytes 0.6 thou/uL (0.11-0.59); #Neutrophils 4.3 thou/uL (1.40-6.50); %Basophils 0.2 % (0.0-1.0); %Eosinophils 0.6 % (0.0-10.0); %Lymphocytes 14.9 % (21.0-51.0); %Monocytes 10.6 % (0.0-10.0); %Neutrophils 73.6 % (42.0-75.0); Hemoglobin 11.4 g/dL (14.0-18.0); Mean Corpuscular HGB CONC 34.7 g/dL (32.0-36.0); Mean Corpuscular Hemoglobin 30.2 pg (27.0-31.0); Mean Platelet Volume 8.6 fL (7.4-10.4); Platelet Count 88 thou/uL (130-400); RBC Distribution Width 12.7 % (11.5-14.5); Red Blood Cell (RBC) Count 3.77 mill/uL (4.70-6.10); White Blood Cell (WBC) Count 5.9 thou/uL (4.8-10.8)
[2019-05-04 05:26] LABS: Anion Gap 14 mmol/L (10-20); BUN (Urea Nitrogen) 47 mg/dL (8.4-25.7); Calc. Creatinine Clearance 10 mL/min (70-130); Calcium 8.9 mg/dL (7.8-10.44); Carbon Dioxide 24 mmol/L (23-31); Chloride 103 mmol/L (98-107); Estimated GFR-MDRD 9; Glucose 81 mg/dL (83-110); Magnesium 2.1 mg/dL (1.6-2.6); Potassium 3.6 mmol/L (3.5-5.1); Sodium 137 mmol/L (136-145)
[2019-05-04 05:34] LABS: Critical Call Chem Troponin I RESULT DECREASING; Troponin I 0.396 ng/mL (< 0.028)
[2019-05-04] MEDS: hydrALAZINE 25 MG TAB PO SCH ×3 (08:39→21:20)
[2019-05-04] MEDS: Azithromycin 250 MG TAB PO SCH (08:40)
[2019-05-04] MEDS: Aspirin 81 mg Enteric Coated Tablet PO SCH (08:40)
[2019-05-04] MEDS ORDERED: Enoxaparin Sodium 40 MG/0.4 ML SYRINGE SC SCH (09:00)
--- NOTE | 2019-05-04 14:02 | PRG ---
DATE OF SERVICE: 05/04/2019 SUBJECTIVE: Heidi is sitting up, working with physical therapy. He has no chest pain or pressure. OBJECTIVE: VITAL SIGNS: Blood pressure 156/70, pulse 90. LUNGS: Some rhonchi. CARDIAC: Normal S1, normal S2. ABDOMEN: Soft and nontender. ASSESSMENT: 1. End-stage renal disease. 2. 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 3. Hypertension. PLAN: From cardiac standpoint, no further intervention indicated. Okay to be discharged and follow up with his primary dust operator, Dr. Brink as an outpatient. Job ID: [id number]
--- NOTE | 2019-05-04 16:02 | PRG ---
DATE OF SERVICE: SUBJECTIVE: Patient was seen and examined at bedside and overnight events noted. Patient denies any shortness of breath or chest pain or palpitation. No history of nausea or vomiting or diarrhea or fever or chills or cramps. OBJECTIVE: GENERAL: This is a well-built male, in no apparent distress. VITAL SIGNS: Temperature . Heart rate 97. Respiratory rate 16. Blood pressure 124/80. HEENT: Atraumatic, normocephalic. Oral mucosa is moist NECK: Supple. CARDIOVASCULAR: S1, S2 heard. Rate and rhythm regular. RESPIRATORY: Clear to auscultation. GASTROINTESTINAL: Abdomen is soft. MUSCULOSKELETAL: No tenderness. No edema. DERMATOLOGIC: No skin rash. NEUROLOGIC: Alert and awake and oriented X3. No focal neurologic deficits. Moving all the extremities. PSYCHIATRIC: Mood and affect normal. LABORATORY DATA: Potassium 3.6, BUN is 47, creatinine is 7.1. ASSESSMENT AND PLAN: 1. End-stage renal disease. Plan to have dialysis today and then Saturday, Saturday, Saturday. 2. History of hypertension. We will monitor. 3. Anemia. 4. Edema, controlled. Plan to continue on dialysis as tolerated. Job ID: [id number]
[2019-05-04] MEDS ORDERED: methylPREDNISolone Sod Succ/PF 125 MG/2 ML VIAL IVP SCH (18:00)
--- NOTE | 2019-05-04 19:28 | PDOC.HOSPP ---
- Subjective Encounter Date: 05/04/19 Encounter Time: 11:30 Subjective: pt up in bed still has some sob - Objective Vital Signs & Weight: Vital Signs (12 hours) Temp Pulse Pulse Pulse Resp BP BP 05/04/19 19:04 90 16 05/04/19 15:05 98.4 F 97 16 05/04/19 13:15 107 H 109 H 141/84 H 141/87 H 05/04/19 07:34 98.3 F 92 19 BP Pulse Ox 05/04/19 19:04 95 05/04/19 15:05 125/80 93 L 05/04/19 13:15 05/04/19 07:34 156/70 H 96 Weight Admit Weight 175 lb Weight 175 lb I&O: 05/03/19 05/04/19 05/05/19 06:59 06:59 06:59 Intake Total 480 Balance 480 Result Diagrams: 05/06/19 09:20 05/06/19 09:20 Additional Labs: Accuchecks 05/04/19 05/04/19 05/03/19 16:46 05:42 21:11 POC Glucose 166 H 86 121 H Hospitalist ROS - Review of Systems Cardiovascular: denies: chest pain, palpitations, orthopnea, paroxysmal noc. dyspnea, edema, light headedness, other Gastrointestinal: denies: nausea, vomiting, abdominal pain, diarrhea, constipation, melena, hematochezia, other Genitourinary: denies: dysuria, frequency, incontinence, hematuria, retention, other - Medication Medications: Active Medications Generic Name Dose Route Start Last Admin Trade Name Freq PRN Reason Stop Dose Admin Albuterol/Ipratropium 3 ml 05/04/19 19:00 05/04/19 19:04 Duoneb NEB 3 ml [id number] BARBARA Administration Aspirin 81 mg 05/03/19 09:00 05/04/19 08:40 Ecotrin PO 81 mg DAILY BARBARA Administration Atorvastatin Calcium 20 mg 05/03/19 21:00 05/03/19 20:44 Lipitor PO 20 mg HS BARBARA Administration Azithromycin 250 mg 05/03/19 09:00 05/04/19 08:40 Zithromax PO 05/06/19 09:01 250 mg DAILY BARBARA Administration Hydralazine HCl 25 mg 05/03/19 09:00 05/04/19 15:19 Apresoline PO Not Given TID BARBARA Ceftriaxone Sodium 1 gm/ 100 mls @ 200 mls/hr 05/02/19 20:00 05/03/19 20:43 Sodium Chloride IVPB 05/05/19 20:29 100 mls Q24HR BARBARA Administration Isosorbide Mononitrate 30 mg 05/04/19 09:00 05/04/19 08:39 Imdur PO 30 mg DAILY BARBARA Administration Pantoprazole Sodium 40 mg 05/03/19 09:00 05/04/19 08:39 Protonix PO 40 mg DAILY BARBARA Administration Senna/Docusate Sodium 1 tab 05/03/19 09:00 05/04/19 08:39 Senokot S PO Not Given BID BARBARA Sertraline HCl 100 mg 05/03/19 09:00 05/04/19 08:39 Zoloft PO 100 mg DAILY BARBARA Administration Trazodone HCl 100 mg 05/03/19 21:00 05/03/19 20:43 Desyrel PO 100 mg HS BARBARA Administration - Exam Neck: negative: supple, symmetric, no JVD, no thyromegaly, no lymphadenopathy, no carotid bruit, JVD Heart: negative: RRR, no murmur, no gallops, no rubs, normal peripheral pulses, irregular, diminshed peripheral pulses, murmur present, II/IV, III/IV Respiratory: negative: CTAB, no wheezes, no rales, no ronchi, normal chest expansion, no tachypnea, normal percussion, rales, rhonchi, tachypneic, wheezes Hosp A/P (1) Pneumonia Code(s): J18.9 - PNEUMONIA, UNSPECIFIED ORGANISM Status: Acute (2) NSTEMI (non-ST elevated myocardial infarction) Code(s): I21.4 - NON-ST ELEVATION (NSTEMI) MYOCARDIAL INFARCTION Status: Acute (3) SOB (shortness of breath) Code(s): R06.02 - SHORTNESS OF BREATH Status: Acute (4) DM type 2 (diabetes mellitus, type 2) Status: Chronic (5) ESRD (end stage renal disease) on dialysis Code(s): N18.6 - END STAGE RENAL DISEASE; Z99.2 - DEPENDENCE ON RENAL DIALYSIS Status: Chronic - Plan pt up in bed complains of some sob. will continue abx for now.cardiology consulted. will continue lovonox for now. will get records from [facility]. 05/04 will start pt on steroids and duoneb. his echo similar to previous per cardiology. will monitor. s/p dialysis.
[2019-05-04] MEDS: cefTRIAXone\\ROCEPHIN 1 GM in Sodium Chloride 0.9% 100 ML IVPB SCH (20:26)
[2019-05-04] MEDS: Atorvastatin Calcium 20 MG TAB PO SCH (20:26)
[2019-05-04] MEDS: traZODone HCl 50 MG TAB PO SCH (20:27)
[2019-05-05] MEDS: Senokot S 8.6-50 MG TAB PO SCH ×3 (00:28→21:15)
[2019-05-05 05:10] LABS: #Eosinphils 0.1 thou/uL (0.0-0.7); #Lymphocytes 1.4 thou/uL (1.20-3.40); #Monocytes 0.7 thou/uL (0.11-0.59); #Neutrophils 3.1 thou/uL (1.40-6.50); %Basophils 0.6 % (0.0-1.0); %Eosinophils 1.8 % (0.0-10.0); %Lymphocytes 26.6 % (21.0-51.0); %Monocytes 13.9 % (0.0-10.0); %Neutrophils 57.1 % (42.0-75.0); Hemoglobin 11.9 g/dL (14.0-18.0); Mean Corpuscular HGB CONC 32.8 g/dL (32.0-36.0); Mean Corpuscular Hemoglobin 28.9 pg (27.0-31.0); Mean Corpuscular Volume 88.1 fL (78.0-98.0); Mean Platelet Volume 9.2 fL (7.4-10.4); Platelet Count 98 thou/uL (130-400); RBC Distribution Width 12.6 % (11.5-14.5); Red Blood Cell (RBC) Count 4.11 mill/uL (4.70-6.10); White Blood Cell (WBC) Count 5.4 thou/uL (4.8-10.8)
[2019-05-05 05:59] LABS: Critical Call Chem Troponin I RESULT DECREASING
[2019-05-05 06:52] LABS: Anion Gap 10 mmol/L (10-20); BUN (Urea Nitrogen) 28 mg/dL (8.4-25.7); Calc. Creatinine Clearance 13 mL/min (70-130); Calcium 8.8 mg/dL (7.8-10.44); Carbon Dioxide 30 mmol/L (23-31); Chloride 103 mmol/L (98-107); Estimated GFR-MDRD 13; Glucose 95 mg/dL (83-110); Magnesium 2.1 mg/dL (1.6-2.6); Phosphorus 2.6 mg/dL (2.3-4.7); Sodium 140 mmol/L (136-145)
[2019-05-05] MEDS ORDERED: Potassium Chloride 20 MEQ TAB PO SCH (08:30)
[2019-05-05] MEDS: Aspirin 81 mg Enteric Coated Tablet PO SCH (09:03)
[2019-05-05] MEDS: hydrALAZINE 25 MG TAB PO SCH ×3 (09:04→21:15)
[2019-05-05] MEDS: Azithromycin 250 MG TAB PO SCH (09:04)
[2019-05-05] MEDS: methylPREDNISolone Sod Succ/PF 125 MG/2 ML VIAL IVP SCH (09:04)
--- NOTE | 2019-05-05 09:21 | PRG ---
DATE OF SERVICE: 05/05/2019 SUBJECTIVE: Patient was seen and examined at bedside and overnight events noted. Patient denies any shortness of breath or chest pain or palpitation. No history of nausea or vomiting or diarrhea or fever or chills or cramps. OBJECTIVE: GENERAL: This is a well-built male, in no apparent distress. VITAL SIGNS: Temperature 98.3. Heart rate 83. Respiratory rate 16. Blood pressure 140/85. HEENT: Atraumatic, normocephalic. Oral mucosa is moist NECK: Supple. CARDIOVASCULAR: S1, S2 heard. Rate and rhythm regular. RESPIRATORY: Clear to auscultation. GASTROINTESTINAL: Abdomen is soft. MUSCULOSKELETAL: No tenderness. No edema. DERMATOLOGIC: No skin rash. NEUROLOGIC: Alert and awake and oriented X3. No focal neurologic deficits. Moving all the extremities. PSYCHIATRIC: Mood and affect normal. LABORATORY DATA: Potassium , creatinine is 5.2. ASSESSMENT AND PLAN: 1. End-stage renal disease, continue on dialysis. 2. Hypokalemia, we will replace. 3. History of hypertension. 4. Anemia. 5. Edema. We will give a dose of potassium today, and we will monitor. Continue dialysis as tolerated. Job ID: [id number]
[2019-05-05] MEDS: Enoxaparin Sodium 30 MG/0.3 ML SYRINGE SC SCH (15:57)
[2019-05-05] MEDS ORDERED: Carvedilol 6.25 MG TAB PO SCH (17:30)
[2019-05-05] MEDS: Carvedilol 6.25 MG TAB PO SCH (18:24)
[2019-05-05] MEDS: traZODone HCl 50 MG TAB PO SCH (21:14)
[2019-05-05] MEDS: cefTRIAXone\\ROCEPHIN 1 GM in Sodium Chloride 0.9% 100 ML IVPB SCH (21:15)
[2019-05-05] MEDS: Atorvastatin Calcium 20 MG TAB PO SCH (21:15)
--- NOTE | 2019-05-06 06:45 | PDOC.HOSPP ---
- Subjective Encounter Date: 05/05/19 Encounter Time: 11:30 Subjective: pt up in bed does not feel well. at bedside. - Objective Vital Signs & Weight: Vital Signs (12 hours) Temp Pulse Resp BP BP Pulse Ox 05/06/19 03:08 97 F L 71 19 157/78 H 96 05/05/19 23:31 77 16 96 05/05/19 21:15 99 05/05/19 21:10 97.9 F 99 17 115/61 96 Weight Admit Weight 175 lb Weight 169 lb 4.8 oz I&O: 05/04/19 05/05/19 05/06/19 06:59 06:59 06:59 Intake Total 480 Balance 480 Result Diagrams: 05/05/19 04:29 05/05/19 04:29 Additional Labs: Accuchecks 05/06/19 05/05/19 05/05/19 05:29 20:14 16:59 POC Glucose 89 140 H 149 H 05/05/19 10:37 POC Glucose 251 H Hospitalist ROS - Review of Systems Cardiovascular: denies: chest pain, palpitations, orthopnea, paroxysmal noc. dyspnea, edema, light headedness, other Gastrointestinal: denies: nausea, vomiting, abdominal pain, diarrhea, constipation, melena, hematochezia, other Genitourinary: denies: dysuria, frequency, incontinence, hematuria, retention, other - Medication Medications: Active Medications Generic Name Dose Route Start Last Admin Trade Name Freq PRN Reason Stop Dose Admin Albuterol/Ipratropium 3 ml 05/04/19 19:00 05/05/19 23:31 Duoneb NEB 3 ml [id number] BARBARA Administration Aspirin 81 mg 05/03/19 09:00 05/05/19 09:03 Ecotrin PO 81 mg DAILY BARBARA Administration Atorvastatin Calcium 20 mg 05/03/19 21:00 05/05/19 21:15 Lipitor PO 20 mg HS BARBARA Administration Azithromycin 250 mg 05/03/19 09:00 05/05/19 09:04 Zithromax PO 05/06/19 09:01 250 mg DAILY BARBARA Administration Carvedilol 12.5 mg 05/06/19 08:00 05/05/19 18:24 Coreg PO 12.5 mg BID-WM BARBARA Administration Enoxaparin Sodium 30 mg 05/05/19 09:00 05/05/19 15:57 Lovenox SC 30 mg 0900 BARBARA Administration Hydralazine HCl 25 mg 05/03/19 09:00 05/05/19 21:15 Apresoline PO 25 mg TID BARBARA Administration Isosorbide Mononitrate 30 mg 05/04/19 09:00 05/05/19 09:04 Imdur PO 30 mg DAILY BARBARA Administration Methylprednisolone Sodium Succinate 40 mg 05/05/19 09:00 05/05/19 09:04 Solu-Medrol IVP 40 mg DAILY BARBARA Administration Pantoprazole Sodium 40 mg 05/03/19 09:00 05/05/19 09:04 Protonix PO 40 mg DAILY BARBARA Administration Senna/Docusate Sodium 1 tab 05/03/19 09:00 05/05/19 21:15 Senokot S PO 1 tab BID BARBARA Administration Sertraline HCl 100 mg 05/03/19 09:00 05/05/19 09:04 Zoloft PO 100 mg DAILY BRABARA Administration Trazodone HCl 100 mg 05/03/19 21:00 05/05/19 21:14 Desyrel PO 100 mg HS BARBARA Administration - Exam Neck: negative: supple, symmetric, no JVD, no thyromegaly, no lymphadenopathy, no carotid bruit, JVD Heart: negative: RRR, no murmur, no gallops, no rubs, normal peripheral pulses, irregular, diminshed peripheral pulses, murmur present, II/IV, III/IV Respiratory: rhonchi, wheezes Hosp A/P (1) Pneumonia Code(s): J18.9 - PNEUMONIA, UNSPECIFIED ORGANISM Status: Acute (2) NSTEMI (non-ST elevated myocardial infarction) Code(s): I21.4 - NON-ST ELEVATION (NSTEMI) MYOCARDIAL INFARCTION Status: Acute (3) SOB (shortness of breath) Code(s): R06.02 - SHORTNESS OF BREATH Status: Acute (4) DM type 2 (diabetes mellitus, type 2) Status: Chronic (5) ESRD (end stage renal disease) on dialysis Code(s): N18.6 - END STAGE RENAL DISEASE; Z99.2 - DEPENDENCE ON RENAL DIALYSIS Status: Chronic (6) COPD exacerbation Code(s): J44.1 - CHRONIC OBSTRUCTIVE PULMONARY DISEASE W (ACUTE) EXACERBATION Status: Acute - Plan pt up in bed complains of some sob. will continue abx for now.cardiology consulted. will continue lovonox for now. will get records from [facility]. 05/04 will start pt on steroids and duoneb. his echo similar to previous per cardiology. will monitor. s/p dialysis. 05/05 pt smokes 1-2 pack a day. he is currently in afib/flutter he is not a candidate for AC due to his low platelets. He is on asa. No sure if his thrombocytopenia has been worked up as outpatient. will try to get records from his body die [facility]. No intervention per cardiology this admit. will continue steroids and duoneb. He has been advised against smoking.
[2019-05-06] MEDS: Senokot S 8.6-50 MG TAB PO SCH ×2 (08:54→20:48)
[2019-05-06] MEDS: Aspirin 81 mg Enteric Coated Tablet PO SCH (08:54)
[2019-05-06] MEDS: hydrALAZINE 25 MG TAB PO SCH ×3 (08:54→20:48)
[2019-05-06] MEDS: Azithromycin 250 MG TAB PO SCH (08:54)
[2019-05-06] MEDS: Carvedilol 6.25 MG TAB PO SCH ×2 (08:56→17:09)
[2019-05-06] MEDS: methylPREDNISolone Sod Succ/PF 125 MG/2 ML VIAL IVP SCH (08:58)
[2019-05-06 09:54] LABS: Hemoglobin 12.4 g/dL (14.0-18.0); Platelet Count 115 thou/uL (130-400)
[2019-05-06 10:04] LABS: Anion Gap 11 mmol/L (10-20); BUN (Urea Nitrogen) 37 mg/dL (8.4-25.7); Calc. Creatinine Clearance 11 mL/min (70-130); Calcium 9.2 mg/dL (7.8-10.44); Carbon Dioxide 28 mmol/L (23-31); Chloride 105 mmol/L (98-107); Estimated GFR-MDRD 11; Glucose 87 mg/dL (83-110); Potassium 3.7 mmol/L (3.5-5.1); Sodium 140 mmol/L (136-145)
[2019-05-06] MEDS: Enoxaparin Sodium 30 MG/0.3 ML SYRINGE SC SCH (10:42)
--- NOTE | 2019-05-06 11:00 | PRG ---
DATE OF SERVICE: 05/06/2019 SUBJECTIVE: Patient was seen and examined at bedside and overnight events noted. Patient denies any shortness of breath or chest pain or palpitation. No history of nausea or vomiting or diarrhea or fever or chills or cramps. OBJECTIVE: GENERAL: This is a well-built male, in no apparent distress. VITAL SIGNS: Temperature . Heart rate 55. Respiratory rate 18. Blood pressure 146/72. HEENT: Atraumatic, normocephalic. Oral mucosa is moist NECK: Supple. CARDIOVASCULAR: S1, S2 heard. Rate and rhythm regular. RESPIRATORY: Clear to auscultation. GASTROINTESTINAL: Abdomen is soft. MUSCULOSKELETAL: No tenderness. No edema. DERMATOLOGIC: No skin rash. NEUROLOGIC: Alert and awake and oriented X3. No focal neurologic deficits. Moving all the extremities. PSYCHIATRIC: Mood and affect normal. LABORATORY DATA: Labs showed potassium of 3.7, BUN is 37, and creatinine is 6.2. ASSESSMENT AND PLAN: 1. End-stage renal disease. Continue dialysis on Mondays and Fridays. 2. Edema, controlled. 3. History of hypertension. 4. Anemia. 5. Plan to continue dialysis as tolerated. Job ID: [id number]
--- NOTE | 2019-05-06 14:56 | PQF ---
LAUREN POLANCO DEMARIO SALGADO [id number] [facility] [id number] CLINICAL DOCUMENTATION IMPROVEMENT CLARIFICATION FORM: ICD-10 Updated PLEASE DO AN ADDENDUM TO THE PROGRESS NOTE WITH ANY DOCUMENTATION UPDATES OR ADDITIONS AND CARRY THROUGH TO DC SUMMARY. THANK YOU. DATE: 05/06/19 ATTN: Dr. Cruz Please exercise your independent, professional judgment in responding to the clarification form. Clinical indicators are provided on the bottom of this form for your review Please check appropriate box(s) to clarify if the following diagnosis has been ruled in or ruled out: Sepsis [ ] Ruled in diagnosis [ x] Continue to treat [ ] Resolved [ ] Ruled out diagnosis [ ] Cannot rule out diagnosis [ ] Other diagnosis [ ] Unable to determine In addition, please specify: Present on Admission (POA): [ x ] Yes [ ] No [ ] Unable to determine For continuity of documentation, please document condition throughout progress notes and discharge summary. Thank You. CLINICAL INDICATORS - SIGNS / SYMPTOMS / LABS / RESULTS AND LOCATION IN MR 05/02 H&P([facility]): "Community acquired pneumonia w/ sepsis" 05/02 CXR revealed LLL infilitrate 05/02 Neutrophils 75.9% per lab 05/02 RR 22 per VS O2 sats 90% on RA 05/02 ED VS RISK FACTORS / RESULTS AND LOCATION IN MR ESRD on HD per H&P: 05/02 [facility] 05/02 ED([facility]): "smokes 1 pack of cigarettes per day" TREATMENTS / RESULTS AND LOCATION IN MR 05/02 orders for Telemetry IV Antibiotics: Azithromycin 500mg and Rocephin 1gm IV 05/02 once to Azithromycin 250mg PO 05/04-05/06 and Rocephin 1gm IV daily 05/02-05/05 per orders 2L NC oxygen 05/02 orders (This form is maintained as a part of the permanent medical record) 2014 [employer], [employer]. All Rights Reserved Kimi Petersen RN, BSN, CCDS [email or web address] [phone] [email or web address]
[2019-05-06] MEDS: Atorvastatin Calcium 20 MG TAB PO SCH (20:48)
[2019-05-06] MEDS: traZODone HCl 50 MG TAB PO SCH (20:48)
[2019-05-07 03:20] VITALS: TEMP 97.4
[2019-05-07] MEDS: hydrALAZINE 25 MG TAB PO SCH (08:06)
[2019-05-07] MEDS: methylPREDNISolone Sod Succ/PF 125 MG/2 ML VIAL IVP SCH (08:07)
[2019-05-07] MEDS: Enoxaparin Sodium 30 MG/0.3 ML SYRINGE SC SCH (08:07)
[2019-05-07] MEDS: Carvedilol 6.25 MG TAB PO SCH (08:07)
[2019-05-07] MEDS: Aspirin 81 mg Enteric Coated Tablet PO SCH (08:07)
[2019-05-07] MEDS: Senokot S 8.6-50 MG TAB PO SCH (08:07)
[2019-05-07 11:37] VITALS: BP 137/68
[2019-05-07 12:30] VITALS: BMI 20.7
--- NOTE | 2019-05-07 12:31 | PDOC.HOSPP ---
- Subjective Encounter Date: 05/06/19 Encounter Time: 12:30 Subjective: pt up ambulating feels well but still is a bit sob - Objective Vital Signs & Weight: Vital Signs (12 hours) Temp Pulse Pulse Pulse Resp BP BP 05/07/19 11:05 97.4 F L 60 18 05/07/19 09:20 66 51 L 118/75 05/07/19 08:07 152/73 H 05/07/19 08:06 74 05/07/19 08:00 97.4 F L 64 17 05/07/19 06:46 63 16 05/07/19 03:17 97.4 F L 52 L 17 BP BP BP Pulse Ox Pulse Ox Pulse Ox 05/07/19 11:05 137/68 95 05/07/19 09:20 137/72 94 L 93 L 05/07/19 08:07 05/07/19 08:06 05/07/19 08:00 152/73 H 94 L 05/07/19 06:46 100 05/07/19 03:17 161/78 H 98 Weight Admit Weight 175 lb Weight 166 lb 3.2 oz I&O: 05/06/19 05/07/19 05/08/19 06:59 06:59 06:59 Intake Total 120 480 360 Output Total 475 250 300 Balance -355 230 60 Result Diagrams: 05/06/19 09:20 05/06/19 09:20 Additional Labs: Accuchecks 05/07/19 05/07/19 05/06/19 10:41 05:54 20:33 POC Glucose 166 H 109 176 H 05/06/19 05/06/19 17:17 10:26 POC Glucose 242 H 245 H Hospitalist ROS - Review of Systems Respiratory: reports: shortness of breath Cardiovascular: denies: chest pain, palpitations, orthopnea, paroxysmal noc. dyspnea, edema, light headedness, other Gastrointestinal: denies: nausea, vomiting, abdominal pain, diarrhea, constipation, melena, hematochezia, other - Medication Medications: Active Medications Generic Name Dose Route Start Last Admin Trade Name Freq PRN Reason Stop Dose Admin Albuterol/Ipratropium 3 ml 05/04/19 19:00 05/07/19 06:46 Duoneb NEB 3 ml [id number] BARBARA Administration Aspirin 81 mg 05/03/19 09:00 05/07/19 08:07 Ecotrin PO 81 mg DAILY BARBARA Administration Atorvastatin Calcium 20 mg 05/03/19 21:00 05/06/19 20:48 Lipitor PO 20 mg HS BARBARA Administration Carvedilol 12.5 mg 05/06/19 08:00 05/07/19 08:07 Coreg PO 12.5 mg BID-WM BARBARA Administration Enoxaparin Sodium 30 mg 05/05/19 09:00 05/07/19 08:07 Lovenox SC 30 mg 0900 BARBARA Administration Hydralazine HCl 25 mg 05/03/19 09:00 05/07/19 08:06 Apresoline PO 25 mg TID BARBARA Administration Isosorbide Mononitrate 30 mg 05/04/19 09:00 05/07/19 08:06 Imdur PO 30 mg DAILY BARBARA Administration Methylprednisolone Sodium Succinate 40 mg 05/05/19 09:00 05/07/19 08:07 Solu-Medrol IVP 40 mg DAILY BARBARA Administration Pantoprazole Sodium 40 mg 05/03/19 09:00 05/07/19 08:06 Protonix PO 40 mg DAILY BARBARA Administration Senna/Docusate Sodium 1 tab 05/03/19 09:00 05/07/19 08:07 Senokot S PO 1 tab BID BARBARA Administration Sertraline HCl 100 mg 05/03/19 09:00 05/07/19 08:06 Zoloft PO 100 mg DAILY BARBARA Administration Trazodone HCl 100 mg 05/03/19 21:00 05/06/19 20:48 Desyrel PO 100 mg HS BARBARA Administration - Exam Heart: negative: RRR, no murmur, no gallops, no rubs, normal peripheral pulses, irregular, diminshed peripheral pulses, murmur present, II/IV, III/IV Respiratory: rhonchi, wheezes Gastrointestinal: negative: soft, non-tender, non-distended, normal bowel sounds , no palpable masses, no hepatomegaly, no splenomegaly, no bruit, no guarding, no rigidity, tender to palpation, distended, diminished bowl sounds, voluntary guarding Hosp A/P (1) Pneumonia Code(s): J18.9 - PNEUMONIA, UNSPECIFIED ORGANISM Status: Acute (2) NSTEMI (non-ST elevated myocardial infarction) Code(s): I21.4 - NON-ST ELEVATION (NSTEMI) MYOCARDIAL INFARCTION Status: Acute (3) SOB (shortness of breath) Code(s): R06.02 - SHORTNESS OF BREATH Status: Acute (4) DM type 2 (diabetes mellitus, type 2) Status: Chronic (5) ESRD (end stage renal disease) on dialysis Code(s): N18.6 - END STAGE RENAL DISEASE; Z99.2 - DEPENDENCE ON RENAL DIALYSIS Status: Chronic - Plan pt up in bed complains of some sob. will continue abx for now.cardiology consulted. will continue lovonox for now. will get records from [facility]. 05/06 pt still a bit sob on ambulating. possible discharge in am
--- NOTE | 2019-05-07 17:17 | PRG ---
DATE OF SERVICE: 05/07/2019 SUBJECTIVE: Patient was seen and examined at bedside and overnight events noted. Patient denies any shortness of breath or chest pain or palpitation. No history of nausea or vomiting or diarrhea or fever or chills or cramps. OBJECTIVE: GENERAL: This is a well-built male, in no apparent distress. VITAL SIGNS: Temperature 97.4. Heart rate 60. Respiratory rate 18. Blood pressure 137/68 HEENT: Atraumatic, normocephalic. Oral mucosa is moist NECK: Supple. CARDIOVASCULAR: S1, S2 heard. Rate and rhythm regular. RESPIRATORY: Clear to auscultation. GASTROINTESTINAL: Abdomen is soft. MUSCULOSKELETAL: No tenderness. No edema. DERMATOLOGIC: No skin rash. NEUROLOGIC: Alert and awake and oriented X3. No focal neurologic deficits. Moving all the extremities. PSYCHIATRIC: Mood and affect normal. LABORATORY DATA: Not done today. ASSESSMENT AND PLAN: 1. End-stage renal disease. Continue dialysis as ordered. 2. Edema, controlled. 3. Hypertension. 4. Anemia. 5. Continue dialysis as tolerated. Job ID: [id number]
--- NOTE | 2019-05-07 19:00 | DIS ---
DATE OF ADMISSION: 05/02/2019 DATE OF DISCHARGE: 05/07/2019 DISCHARGE DIAGNOSES: 1. Shortness of breath. 2. [id number] myocardial infarction. 3. Pneumonia. 4. Diabetes. 5. End-stage renal disease. HOSPITAL COURSE: The patient is a very pleasant 73-year-old male who initially presented to the hospital with complaints of shortness of breath. Please refer to the H and P for further evaluation. X-ray indicated possible left lower lung infiltrate. He also had some mildly elevated troponins and for which Cardiology was consulted. The patient at this time did not have chest pain; just some shortness of breath. Cardiology did an echocardiogram which indicated an EF 50% to 55%. He has moderate to severe mitral regurgitation and moderate to severe tricuspid regurgitation. He also has base of the inferior wall thin and akinetic. I did speak with Cardiology about this, who stated that his echo was compared to his previous echo and stated that there were no significant changes. Recommended to follow up with his clinical scientist, Dr. Knott as outpatient. The patient also was put on some steroids and DuoNeb since he has a significant history of smoking. He continued to improve through the hospital stay. He was ambulating. The patient will be discharged home today. He will follow up with his primary care and also with his clinical scientist. HOME MEDICATIONS: Will be: 1. Aspirin 81 mg daily. 2. Budesonide b.i.d. 3. Doxycycline 100 mg twice a day. 4. DuoNeb q.6 hours p.r.n. 5. I have also given him a prescription for nebulizer. 6. Prednisone 40 mg for next 3 days. 7. Atorvastatin 20 mg daily. 8. Coreg 12.5 b.i.d. 9. Zoloft 100 mg daily. 10. Clonidine 0.1 b.i.d. 11. Hydralazine 25 t.i.d. 12. Tramadol 50 mg q.6 hours p.r.n. 13. Trazodone 100 mg at bedtime. ASSESSMENT AND PLAN: The patient has a history of atrial fibrillation. He was in atrial fibrillation. Unable to put him on a blood thinner given his platelets of only 88 to 90. I have put him on aspirin. I will defer this to the patient's clinical scientist for putting and starting him on anticoagulation. I also recommended the to follow up with maybe Oncology or online project manager as outpatient for possible evaluation of his thrombocytopenia. He does not have a history of alcohol use per the patient and family. PHYSICAL EXAMINATION: VITAL SIGNS: Temperature of 98.8, pulse 60, respirations 18, 95% on room air, blood pressure 137/72. GENERAL: He is awake, alert, and oriented x3. Does not appear in distress. CV: S1 and S2 present. No murmurs, rubs, or gallops. LUNGS: Mild rhonchi all over, improved from yesterday. ABDOMEN: Soft and nontender. Bowel sounds are present x2. DISCHARGE INSTRUCTIONS: The patient again will be discharged home. He will follow up with his primary and Cardiology. Job ID: [id number]
== END 2019-05-07 14:17 | disposition home or self-care (01) | DRG 871 ==
LOC: ERS 17:33 → 2NO 21:08
PROVIDERS: ADMIT Internal Medicine; ATTEND Internal Medicine
DX: A41.9 Sepsis, unspecified organism (principal); N18.6 End stage renal disease; J18.9 Pneumonia, unspecified organism; I21.4 Non-ST elevation (NSTEMI) myocardial infarction; I48.92 Unspecified atrial flutter; I13.2 Hypertensive heart and chronic kidney disease with heart failure and with stage 5 chronic kidney disease, or end stage renal disease; J44.1 Chronic obstructive pulmonary disease with (acute) exacerbation; J44.0 Chronic obstructive pulmonary disease with (acute) lower respiratory infection; I50.9 Heart failure, unspecified; E11.22 Type 2 diabetes mellitus with diabetic chronic kidney disease; I16.0 Hypertensive urgency; J40 Bronchitis, not specified as acute or chronic; D64.9 Anemia, unspecified; E87.6 Hypokalemia; Z99.2 Dependence on renal dialysis; Z90.49 Acquired absence of other specified parts of digestive tract; Z95.1 Presence of aortocoronary bypass graft; Z87.891 Personal history of nicotine dependence; I25.10 Atherosclerotic heart disease of native coronary artery without angina pectoris; D69.6 Thrombocytopenia, unspecified
CPT/HCPCS: 36415; 36416; 71045; 80048; 80053; 81003; 81015; 82553; 82565; 83605; 83735; 83880; 84100; 84145; 84484; 85014; 85018; 85025; 85049; 87040; 87086; 87804; 93005; 93010; 93306; 94640; 96365; 96367; 96375; J0360; J0456; J0696; J1650; J2405; J2930; J3490; J7620

== ENCOUNTER 2019-05-23 16:36 | Inpatient (IN) | payer MEDICARE, MEDICAID ==
[2019-05-23 18:59] LABS: #Basophils 0.1 thou/uL (0.0-0.2); #Eosinphils 0.1 thou/uL (0.0-0.7); #Monocytes 0.5 thou/uL (0.11-0.59); #Neutrophils 3.4 thou/uL (1.40-6.50); %Basophils 1.4 % (0.0-1.0); %Eosinophils 1.9 % (0.0-10.0); %Lymphocytes 33.4 % (21.0-51.0); %Monocytes 7.6 % (0.0-10.0); %Neutrophils 55.7 % (42.0-75.0); Hemoglobin 12.9 g/dL (14.0-18.0); Mean Corpuscular Hemoglobin 29.8 pg (27.0-31.0); Mean Corpuscular Volume 87.6 fL (78.0-98.0); Mean Platelet Volume 8.6 fL (7.4-10.4); Platelet Count 104 thou/uL (130-400); RBC Distribution Width 13.1 % (11.5-14.5); Red Blood Cell (RBC) Count 4.33 mill/uL (4.70-6.10); White Blood Cell (WBC) Count 6.1 thou/uL (4.8-10.8)
[2019-05-23] MEDS ORDERED: Acetaminophen 500 MG TAB ONE (19:00)
[2019-05-23 19:17] LABS: ALT (SGPT) 19 U/L (8-55); AST (SGOT) 19 U/L (5-34); Albumin 3.7 g/dL (3.4-4.8); Alkaline Phosphatase 62 U/L (40-110); Anion Gap 13 mmol/L (10-20); BUN (Urea Nitrogen) 21 mg/dL (8.4-25.7); Bilirubin, Total 0.5 mg/dL (0.2-1.2); Calc. Creatinine Clearance 0 mL/min (70-130); Calcium 9.2 mg/dL (7.8-10.44); Carbon Dioxide 33 mmol/L (23-31); Chloride 98 mmol/L (98-107); Estimated GFR-MDRD 19; Globulin 3.6 g/dL (2.4-3.5); Glucose 163 mg/dL (83-110); Potassium 3.6 mmol/L (3.5-5.1); Protein, Total 7.3 g/dL (5.8-8.1); Sodium 140 mmol/L (136-145)
[2019-05-23] MEDS ORDERED: Atropine Sulfate 1 mg/10 ml Syringe ONE (19:18)
--- NOTE | 2019-05-23 19:24 | RAD ---
Portable frontal chest radiograph: 05/23/2019 COMPARISON: 05/02/2019 HISTORY: Short of breath FINDINGS: Stable prominence of the cardiac silhouette. Descending thoracic aorta is tortuous and ther e is atherosclerotic calcification of the aortic arch. Midline sternotomy wires are present. Stent material is seen in the left subclavicular region. No lobar consolidation or alveolar edema. IMPRESSION: No focal consolidation or alveolar edema.
[2019-05-23] MEDS ORDERED: DOPamine 400 MG/D5W 250 ML 250 ML ONE (19:25)
[2019-05-23] MEDS ORDERED: DOBUTamine 500 mg/250 ml 250 ML ONE (19:39)
[2019-05-23 20:08] LABS: CKMB 1.3 ng/mL (0-6.6)
[2019-05-23 20:12] LABS: Actual Bicarbonate (HCO3a) 24.8 mEq/L (22-28); Analyzer IN Cardio ER; Base Excess (BEa) 1.9 mEq/L (-2.0 to +3.0); CO2 Tension 33.3 mmHg (35.0-45.0); Calcium, Ionized 1.11 mmol/L (1.12-1.30); Carboxyhemoglobin (COHb) 0.5 gm% (0.0-3.0); Hemoglobin (Hb) 12.8 g/dL (14.0-18.0); O2 Tension (PaO2) 87.8 mmHg (> 70.0); Potassium - ABG Lab 3.36 mmol/L (3.70-5.30); pH, Arterial 7.49 (7.35-7.45)
[2019-05-23 20:17] LABS: ALV-art Gradient 20.305 (0-20); Puncture Site RRA
[2019-05-23 23:19] LABS: Troponin I 0.158 ng/mL (< 0.028)
[2019-05-23] MEDS ORDERED: Ondansetron PF 4 MG/2 ML Vial ONE (23:42)
[2019-05-23] MEDS ORDERED: Acetaminophen 325 MG TAB PO PRN (23:53)
[2019-05-23] MEDS ORDERED: HumaLOG 300 UNITS/3 ML VIAL SC PRN ×2 (23:53)
[2019-05-23] MEDS ORDERED: Dextrose 50% Abboject 50 ML SYRINGE SLOW IVP PRN (23:53)
[2019-05-23] MEDS ORDERED: Guaifenesin DM 100-10/5 ML UDCUP PO PRN (23:53)
[2019-05-23] MEDS ORDERED: Dextrose 5% in Water 1,000 ML IV PRN (23:53)
[2019-05-23] MEDS ORDERED: Atropine Sulfate 1 mg/10 ml Syringe IVP PRN (23:53)
[2019-05-23] MEDS ORDERED: Bisacodyl 10 MG SUPP PR PRN (23:53)
[2019-05-23] MEDS ORDERED: Senokot S 8.6-50 MG TAB PO PRN (23:53)
--- NOTE | 2019-05-24 01:20 | HP ---
REASON FOR ADMISSION: Atrial flutter with 5:1 block and severe bradycardia and ventricular rates dipping down to 40s. HISTORY OF PRESENTING ILLNESS: The patient's says she went to pick him up from dialysis around 4 p.m. He had a 3.5 hour session of dialysis. The patient had trouble standing and she could not really get him to the car. He normally ambulates by himself. No complaints of chest pain, palpitations or shortness of breath. He has dry coughing spells. The patient has had recent pneumonia diagnosed and was on antibiotics and has finished the course. Finally, the patient was brought to ER as he was not getting any better. On arrival here, patient was found to be in atrial flutter with 5:1 block with ventricular rates dipping down to 40s. Dr. Aleman was called from the ER and advised to place the patient on dopamine and dobutamine. This made his systolic blood pressure go up to 200 and had to be discontinued in the interim. The patient's heart rate has come back to being in the 40s again. mentions that the patient has had off and on bradycardia for the last 30 days or so and he had seen Dr. Brink, his hadoop consultant at [facility] a month back. He has a scheduled appointment to see Dr. Amaya, motor assembly supervisor, but has not made it to him. Per , his heart rate drops down to anywhere between 24 to 40 beats per minute in the past. PAST MEDICAL AND SURGICAL HISTORY: End-stage renal disease, on hemodialysis. In fact, the patient had his full session of dialysis today, history of CHF, diabetes mellitus type 2, CABG done for 2 vessels in 2005 at [facility] by Dr. Cespedes. Colonoscopy done years ago at least 15 years back was normal. No history of bleeding per rectum, hypotension, recent hospitalization here for pneumonia, dialysis access in the left upper extremity prior history of small bowel obstruction, right knee surgery, peptic ulcer disease, dyslipidemia, hernia repair. CURRENT MEDICATIONS: The patient is on: 1. Albuterol inhaler 3 times daily p.r.n. 2. Clonidine 0.1 mg p.o. twice daily. 3. Coreg 12.5 mg twice daily. 4. Budesonide nebulizer twice daily. 5. Lipitor 20 mg p.o. at bedtime. 6. Trazodone 100 mg p.o. at bedtime. 7. Ultram p.r.n. for pain. 8. Zoloft 100 mg p.o. daily. 9. [place] p.r.n. for pain. 10. Hydralazine 25 mg 3 times daily. 11. Folic acid with vitamin B complex 1 tablet daily. 12. Imdur 30 mg daily. 13. DuoNebs q.6 hourly. 14. He has finished course of doxycycline and prednisone from his recent hospitalization. ALLERGIES: LORAZEPAM. PERSONAL HISTORY: Quit smoking 10 days back. Does not abuse alcohol or drugs. Lives with his . He ambulates by himself. FAMILY HISTORY: Mother at the age of 25. She got shot per patient. Father in his 30s. He apparently got stabbed in a bar. CODE STATUS: Full. Power of title attorney is his . REVIEW OF SYSTEMS: CONSTITUTIONAL: Negative for weight loss or gain, ability to conduct usual activities. SKIN: Negative for rash, itching. EYES: Negative for double vision, pain. ENT/MOUTH: Negative for nose bleeding, neck stiffness, pain, tenderness. CARDIOVASCULAR: Negative for palpitations, dyspnea on exertion, orthopnea. RESPIRATORY: Negative for shortness of breath, wheezing, cough, hemoptysis, fever or night sweats. GASTROINTESTINAL: Negative for poor appetite, abdominal pain, heartburn, nausea , vomiting, constipation, or diarrhea. GENITOURINARY: Negative for urgency, frequency, dysuria, nocturia. MUSCULOSKELETAL: Negative for pain, swelling. NEUROLOGIC/PSYCHIATRIC: Negative for anxiety, depression. ALLERGY/IMMUNOLOGIC: Negative for skin rash, bleeding tendency. PHYSICAL EXAMINATION: GENERAL: The patient is a 73-year-old male who is currently not in any acute distress. VITAL SIGNS: Blood pressure on arrival was 94/53, currently 126/74, pulses in 40s. He is in atrial flutter. Temperature 97.4 degrees Fahrenheit, saturating 97% on room air. NECK: Supple. No elevated JVD. HEENT: Eyes; extraocular muscles intact. Pupils reacting to light. Oral cavity, mucous membranes are moist. No exudates or congestion. CARDIOVASCULAR: S1, S2 heard. Irregular rhythm. RESPIRATORY: Air entry 1+ bilateral. There are scattered rhonchi plus bilateral. No rales or wheezes. ABDOMEN: Soft, bowel sounds heard. No tenderness, rigidity, or guarding. EXTREMITIES: No peripheral edema or calf tenderness. VASCULAR: Peripheral pulses 1+ bilateral. No ischemic ulcerations or gangrene. CENTRAL NERVOUS SYSTEM: No gross focal or motor deficits noted. The patient is alert, awake, and oriented well. PSYCHIATRIC: Patient's mood is euthymic. No hallucinations or delusions. LABORATORY DATA: Chest x-ray done shows no acute cardiopulmonary abnormalities. EKG done shows atrial flutter with 5:1 block with ventricular rate of 42 beats per minute. There is Q-wave seen in leads II, III, aVF. Troponin I 0.13, CK-MB 1.3. BNP 811. Albumin is 3.7. TSH 1.15, BUN 21, creatinine 3.7, serum bicarb 33, serum glucose 163. LFTs within normal limits. White count of 6, H and H 12 and 37, platelet count 104 with 55% neutrophils. CLINICAL IMPRESSION AND PLAN: The patient will be admitted to [facility] for severe bradycardia with atrial flutter and 5:1 block with heart rates dipping down to 40s. His clonidine and carvedilol will be held for now. The patient has had prior history of similar bradycardia in the past month or so and was supposed to see Dr. Amaya. He has not made it to see him yet. He will be on dopamine 5 mcg/kg per minute for now to keep his heart rate up. He will continue his Lipitor, hydralazine, Imdur, DuoNebs, Zoloft, and trazodone as before. If needed, atropine will be used to bring his heart rate up, if he gets bradycardic. Dr. Aleman has been consulted from ER. We will keep him on clear liquid diet for now. The patient likely needs electrophysiology consultation for atrial flutter ablation and likely will need a pacemaker as well. He has had a recent echo done on the of this month, which showed ejection fraction of 50%, moderate LVH, moderate mitral regurgitation and tricuspid regurgitation with elevated pulmonary artery pressures. We will continue to closely monitor him in [facility]. Job ID: [id number] [facility]
[2019-05-24 01:27] VITALS: BMI 20.7
[2019-05-24] MEDS ORDERED: Heparin 10,000 UNITS/ 10 ML VIAL SLOW IVP SCH (01:45)
[2019-05-24] MEDS ORDERED: Heparin 25,000 units/D5W 500 ML IVPB SCH (01:45)
[2019-05-24 02:27] LABS: #Basophils 0.1 thou/uL (0.0-0.2); #Eosinphils 0.1 thou/uL (0.0-0.7); #Lymphocytes 1.5 thou/uL (1.20-3.40); #Monocytes 0.4 thou/uL (0.11-0.59); #Neutrophils 3.5 thou/uL (1.40-6.50); %Basophils 1.3 % (0.0-1.0); %Eosinophils 1.7 % (0.0-10.0); %Lymphocytes 26.3 % (21.0-51.0); %Monocytes 7.1 % (0.0-10.0); %Neutrophils 63.6 % (42.0-75.0); Hemoglobin 12.9 g/dL (14.0-18.0); Mean Corpuscular HGB CONC 35.6 g/dL (32.0-36.0); Mean Corpuscular Hemoglobin 31.2 pg (27.0-31.0); Mean Corpuscular Volume 87.6 fL (78.0-98.0); Platelet Count 90 thou/uL (130-400); RBC Distribution Width 13.3 % (11.5-14.5); Red Blood Cell (RBC) Count 4.14 mill/uL (4.70-6.10); White Blood Cell (WBC) Count 5.6 thou/uL (4.8-10.8)
[2019-05-24 02:28] LABS: INR-International Normal Ratio 1.1; PTT 33.9 SEC (22.9-36.1); Prothrombin Time 13.9 SEC (12.0-14.7)
[2019-05-24 02:47] LABS: Anion Gap 14 mmol/L (10-20); BUN (Urea Nitrogen) 27 mg/dL (8.4-25.7); Calc. Creatinine Clearance 17 mL/min (70-130); Calcium 9.1 mg/dL (7.8-10.44); Carbon Dioxide 31 mmol/L (23-31); Chloride 100 mmol/L (98-107); Estimated GFR-MDRD 18; Glucose 154 mg/dL (83-110); Potassium 3.6 mmol/L (3.5-5.1); Sodium 141 mmol/L (136-145); Troponin I 0.121 ng/mL (< 0.028)
[2019-05-24] MEDS: Budesonide 0.25 MG/2 ML NEB NEB SCH ×2 (07:29→18:48)
[2019-05-24] MEDS ORDERED: Enoxaparin Sodium 30 MG/0.3 ML SYRINGE SC SCH (09:00)
[2019-05-24] MEDS: hydrALAZINE 25 MG TAB PO SCH ×3 (09:34→20:35)
[2019-05-24] MEDS: Isosorbide Mononitrate (ER) 30 MG TAB PO SCH (09:34)
[2019-05-24] MEDS: Folic Acid/Vit B Comp W-C PO SCH (09:34)
[2019-05-24 09:35] LABS: INR-International Normal Ratio 1.1; PTT 85.5 SEC (22.9-36.1); Prothrombin Time 14.3 SEC (12.0-14.7)
[2019-05-24] MEDS ORDERED: Heparin 5,000 UNITS/ML VIAL SC SCH (10:12)
--- NOTE | 2019-05-24 13:50 | CON ---
DATE OF CONSULTATION: REASON FOR CONSULTATION: Atrial flutter with a slow ventricular response. PRIMARY BAIT TIER: Dr. Brink at [facility]. HISTORY OF PRESENT ILLNESS: Mr. Gordon is a 73-year-old gentleman with a history of coronary artery bypass grafting, history of atrial arrhythmias, end-stage renal disease, and low platelet count, who came to the hospital with weakness and found to have heart rate in the high 30s and low 40s, atrial flutter last night. The patient had recently been in the hospital with pneumonia. He had been treated with antibiotics. He came back to the emergency room complaining of weakness and fatigue. The patient otherwise had not been having chest pain or pressure, but his predominant symptom was weakness and fatigue. The patient did have a history of previous bypass surgery, previous history of an inferior myocardial infarction. Echocardiogram on recent visit showed previous inferior infarct with thinned akinetic inferior wall with moderate to severe mitral regurgitation, ejection fraction of 50% to 55% MEDICATIONS: 1. Atorvastatin. 2. Tramadol. 3. Folic acid. 4. Isosorbide. He was not on aspirin due to low platelet count, we would not anticoagulate due to low platelet count. REVIEW OF SYSTEMS: CONSTITUTIONAL: Positive for weakness and fatigue. VISION: No changes. HEARING: No changes. PULMONARY: No cough or wheezing. GASTROINTESTINAL: No nausea, vomiting, or diarrhea. SKIN: No rashes. NEUROLOGIC: No unilateral weakness or numbness. PSYCHIATRIC: No unusual depression or anxiety. OTHER PAST HISTORY: As mentioned, he is on dialysis. ALLERGIES: TO LORAZEPAM. PHYSICAL EXAMINATION: GENERAL: This is a thin, somewhat chronically ill-appearing, elderly gentleman, 73 years old. VITAL SIGNS: 6 foot, 365 pounds. Heart rate is now 60s. HEENT: Eyes, sclerae are nonicteric. Mouth, mucous membranes are moist. NECK: Supple. No lymphadenopathy. LUNGS: Clear. CARDIAC: Normal S1, normal S2 with apical systolic murmur 2/6. ABDOMEN: Soft and nontender. EXTREMITIES: No clubbing. No cyanosis or edema. PERTINENT LABORATORY DATA: Potassium 3.6, creatinine 4.03. Troponin is 0.158, no increase or peak and trough. This is a chronic finding. The EKG reveals atrial flutter, previously he had an intermittent atrial fibrillation. We have not documented a sinus rhythm. ASSESSMENT: 1. Chronic atrial arrhythmias. 2. Previous inferior myocardial infarction. 3. Low platelet count, 90,000 on this admission. 4. End-stage renal disease. 5. Mitral regurgitation. 6. Symptomatic bradycardia. PLAN: 1. Discussed pacemaker insertion. Discussed risks including bleeding, infection. Discussed increased infection risk in dialysis patients, air around the lung requiring drainage, bleeding around the heart. The patient at this point does not agree to that. 2. We will not anticoagulate with low platelet count and increased bleeding risks. Risk appears to outweigh benefit. Also, it is unclear how compliant the patient with his medications. He is also not wishing to have the pacemaker placed at the present time. He had a long discussion about indication for pacemaker. The patient is not agreed to proceed yet. We will repeat echocardiogram to re-evaluate left ventricular function. Job ID: [id number]
[2019-05-24] MEDS: DOPamine 400 MG/D5W 250 ML 250 ML IVPB SCH (15:30)
--- NOTE | 2019-05-24 16:04 | CON ---
DATE OF CONSULTATION: 05/24/2019 CONSULTING PHYSICIAN: Alma Hunt MD REASON FOR CONSULTATION: End-stage renal disease evaluation and care. REASON FOR ADMISSION: Chest pain and bradycardia. HISTORY OF PRESENT ILLNESS: This is a 73-year-old male with history of end-stage renal disease, CHF, and type 2 diabetes, who came to the hospital with above complaints and Nephrology consulted for maintenance hemodialysis. No fever or chills. No nausea or vomiting. PAST MEDICAL HISTORY: Positive for end-stage renal disease, type 2 diabetes, CHF, coronary artery disease. PAST SURGICAL HISTORY: Positive for dialysis access placement, knee surgery, and hernia repair. HOME MEDICATIONS: 1. Albuterol. 2. Clonidine. 3. Coreg. 4. Budesonide. 5. Lipitor. 6. Trazodone. 7. Ultram. 8. Zoloft. 9. [place]. 10. Hydralazine. 11. Folic acid. 12. Imdur. 13. DuoNeb. ALLERGIES: TO LORAZEPAM. SOCIAL HISTORY: No smoking, alcohol, or illicit drugs abuse. FAMILY HISTORY: Positive for diabetes. REVIEW OF SYSTEMS: CONSTITUTIONAL: Negative for weight loss or gain, ability to conduct usual activities. SKIN: Negative for rash, itching. EYES: Negative for double vision, pain. ENT/MOUTH: Negative for nose bleeding, neck stiffness, pain, tenderness. CARDIOVASCULAR: Negative for palpitations, dyspnea on exertion, orthopnea. RESPIRATORY: Negative for shortness of breath, wheezing, cough, hemoptysis, fever or night sweats. GASTROINTESTINAL: Negative for poor appetite, abdominal pain, heartburn, nausea, vomiting, constipation, or diarrhea. GENITOURINARY: Negative for urgency, frequency, dysuria, nocturia. MUSCULOSKELETAL: Negative for pain, swelling. NEUROLOGIC/PSYCHIATRIC: Negative for anxiety, depression. ALLERGY/IMMUNOLOGIC: Negative for skin rash, bleeding tendency. PHYSICAL EXAMINATION: GENERAL: Reveals a well-built male, in no apparent distress. VITAL SIGNS: Temperature 98.2, pulse 53, respiratory rate 18, and blood pressure 144/82. HEENT: Atraumatic, normocephalic. Oral mucosa moist. NECK: Supple. CARDIOVASCULAR: S1 and S2. Rate and rhythm regular. RESPIRATORY: Clear. GASTROINTESTINAL: Abdomen is soft. MUSCULOSKELETAL: 1+ edema. DERMATOLOGIC: No skin rash. NEUROLOGICAL: Alert and awake. PSYCHIATRIC: Mood and affect are normal. LABORATORY DATA: Hemoglobin is 12.9. Potassium is 3.6, BUN is 27, and creatinine is 4.03. ASSESSMENT AND PLAN: 1. End-stage renal disease. Continue on hemodialysis as tolerated. 2. Edema. 3. History of hypertension. 4. Anemia. PLAN: To continue on dialysis as tolerated. Job ID: [id number]
--- NOTE | 2019-05-24 16:10 | PDOC.HOSPP ---
- Subjective Encounter Date: 05/24/19 Encounter Time: 11:38 Subjective: 73 y/o male with ESRD on HD, chronic CHF, CAD admitted with acute generalized weakness after HD. Found to have symptomatic bradycardia from atrial flutter with 5:1 block. Now on dopamine. Feeling better. Pacemaker placement is planned. Denied Chest pain or palpitation. - Objective Vital Signs & Weight: Vital Signs (12 hours) Temp Pulse Resp Pulse Ox 05/24/19 15:41 97.3 F L 05/24/19 15:30 60 05/24/19 13:18 60 14 05/24/19 11:16 98.2 F 05/24/19 09:34 67 05/24/19 08:00 100 05/24/19 07:31 98.2 F 05/24/19 07:26 67 15 99 Weight Weight 165 lb 12.8 oz Most Recent Monitor Data Heart Rate from ECG 71 NIBP 121/71 NIBP BP-Mean 87 Respiration from ECG 12 SpO2 99 I&O: 05/23/19 05/24/19 05/25/19 06:59 06:59 06:59 Intake Total 291 Output Total 100 Balance 191 Result Diagrams: 05/24/19 02:11 05/24/19 02:11 Additional Labs: Accuchecks 05/24/19 10:44 POC Glucose 146 H Hospitalist ROS - Medication Medications: Active Medications Generic Name Dose Route Start Last Admin Trade Name Freq PRN Reason Stop Dose Admin Albuterol/Ipratropium 3 ml 05/24/19 01:00 05/24/19 13:18 Duoneb NEB 3 ml [id number] BARBARA Administration Budesonide 0.25 mg 05/24/19 06:30 05/24/19 07:29 Pulmicort Neb Solution NEB 0.25 mg BID-RT BARBARA Administration Hydralazine HCl 25 mg 05/24/19 09:00 05/24/19 15:30 Apresoline PO 25 mg TID BARBARA Administration Dopamine HCl/Dextrose 250 mls @ 0 mls/hr 05/23/19 23:53 05/24/19 15:30 Dopamine 400 Mg/D5w 250 Ml IVPB 250 mls INF BARBARA Administration Protocol As Directed Heparin Sodium/Dextrose 500 mls @ 0 mls/hr 05/24/19 01:45 05/24/19 02:58 Heparin 25,000 Units/D5w 500 Ml IVPB 500 mls INF BARBARA Administration Protocol Per Protocol Isosorbide Mononitrate 30 mg 05/24/19 09:00 05/24/19 09:34 Imdur Er PO 30 mg DAILY BARBARA Administration Sertraline HCl 100 mg 05/24/19 09:00 05/24/19 09:35 Zoloft PO 100 mg DAILY BARBARA Administration Sodium Chloride 10 ml 05/24/19 09:00 05/24/19 09:35 Flush - Normal Saline IVF 10 ml Q12HR BARBARA Administration Vitamin B Complex/Vit C/Folic Acid 1 tab 05/24/19 09:00 05/24/19 09:34 Nephro-Ramon Tablet PO 1 tab DAILY BARBARA Administration - Exam General Appearance: awake alert Eye: anicteric sclera ENT: normocephalic atraumatic Neck: symmetric, no JVD Heart: RRR Respiratory: no rales, no ronchi, normal chest expansion, no tachypnea Gastrointestinal: soft, non-tender, non-distended, normal bowel sounds Extremities: no edema Neurological: cranial nerve grossly intact, no focal deficits Psychiatric: A&O x 3 Hosp A/P (1) Symptomatic bradycardia Code(s): R00.1 - BRADYCARDIA, UNSPECIFIED Status: Acute (2) SSS (sick sinus syndrome) Code(s): I49.5 - SICK SINUS SYNDROME Status: Acute (3) Moderate mitral regurgitation Code(s): I34.0 - NONRHEUMATIC MITRAL (VALVE) INSUFFICIENCY Status: Acute (4) Pulmonary HTN Code(s): I27.20 - PULMONARY HYPERTENSION, UNSPECIFIED Status: Acute (5) Elevated troponin Code(s): R79.89 - OTHER SPECIFIED ABNORMAL FINDINGS OF BLOOD CHEMISTRY Status : Acute (6) Acute coronary syndrome Code(s): I24.9 - ACUTE ISCHEMIC HEART DISEASE, UNSPECIFIED Status: Acute (7) Atrial flutter Code(s): I48.92 - UNSPECIFIED ATRIAL FLUTTER Status: Acute (8) DM type 2 (diabetes mellitus, type 2) Status: Chronic (9) ESRD (end stage renal disease) on dialysis Code(s): N18.6 - END STAGE RENAL DISEASE; Z99.2 - DEPENDENCE ON RENAL DIALYSIS Status: Chronic (10) HTN (hypertension) Code(s): I10 - ESSENTIAL (PRIMARY) HYPERTENSION Status: Acute - Plan Continue dopamine. cardiology following. pacemaker placement planning in progress, consult Nephrology. Continue antihypertensives. Continue insulin therapy
[2019-05-24] MEDS: traZODone HCl 50 MG TAB PO SCH (20:35)
[2019-05-24] MEDS: Atorvastatin Calcium 20 MG TAB PO SCH (20:35)
[2019-05-25] MEDS: Budesonide 0.25 MG/2 ML NEB NEB SCH ×2 (07:27→18:58)
[2019-05-25] MEDS: hydrALAZINE 25 MG TAB PO SCH ×3 (09:16→21:24)
[2019-05-25] MEDS: Folic Acid/Vit B Comp W-C PO SCH (09:16)
[2019-05-25] MEDS: Isosorbide Mononitrate (ER) 30 MG TAB PO SCH (09:16)
[2019-05-25] MEDS: DOPamine 400 MG/D5W 250 ML 250 ML IVPB SCH (09:17)
--- NOTE | 2019-05-25 11:46 | PRG ---
DATE OF SERVICE: 05/25/2019 SUBJECTIVE: Patient was seen and examined at bedside and overnight events noted. Patient denies any shortness of breath or chest pain or palpitation. No history of nausea or vomiting or diarrhea or fever or chills or cramps. OBJECTIVE: GENERAL: This is a well built male, in no apparent distress. VITAL SIGNS: Temperature 97.5. Heart rate 67. Respiratory rate 18. Blood pressure 138/77. HEENT: Atraumatic, normocephalic. Oral mucosa is moist NECK: Supple. CARDIOVASCULAR: S1, S2 heard. Rate and rhythm regular. RESPIRATORY: Clear to auscultation. GASTROINTESTINAL: Abdomen is soft. MUSCULOSKELETAL: No tenderness. No edema. DERMATOLOGIC: No skin rash. NEUROLOGIC: Alert and awake and oriented X3. No focal neurologic deficits. Moving all the extremities. PSYCHIATRIC: Mood and affect normal. LABORATORY DATA: Potassium 3.6, BUN is 27, creatinine is 4.03. ASSESSMENT AND PLAN: 1. End-stage renal disease, continue on hemodialysis as tolerated. 2. Edema, we will remove fluid. 3. Hypertension. 4. Anemia. Plan to continue on dialysis as tolerated. The patient refused dialysis today. We will continue to monitor. He gets dialysis twice a week, usually Mondays and Fridays. Job ID: [id number]
[2019-05-25 12:58] LABS: INR-International Normal Ratio 1.1
[2019-05-25 12:59] LABS: PTT 35.3 SEC (22.9-36.1)
--- NOTE | 2019-05-25 14:42 | PRG ---
DATE OF SERVICE: 05/25/2019 SUBJECTIVE: Mr. Gordon is sitting up at the edge of the bed. No chest pain or pressure. No complaints. His heart rate is in the 60s. He is on dopamine 5 mcg/kg per minute. OBJECTIVE: VITAL SIGNS: His blood pressure is 123/62, pulse is 60. LUNGS: Clear. CARDIAC: Normal S1, normal S2. ABDOMEN: Soft, nontender. ASSESSMENT: 1. Atrial flutter with slow ventricular response. 2. Previous bypass surgery. 3. Moderately depressed left ventricular function. PLAN: 1. Electrophysiology has been consulted for biventricular pacemaker. Also consideration for ablation. Dr. Mathew is seeing the patient. 2. In view of a low platelet count, we are not giving him heparin, which can cause worse of the low platelet count. Job ID: [id number]
[2019-05-25] MEDS: HYDROcodone/Acetaminophen 5/325 mg Tablet PO PRN (14:52)
--- NOTE | 2019-05-25 18:30 | PDOC.HOSPP ---
- Subjective Encounter Date: 05/25/19 Encounter Time: 13:28 Subjective: 73 y/o male with ESRD on HD, chronic CHF, CAD admitted with acute generalized weakness after HD. Found to have symptomatic bradycardia from atrial flutter with 5:1 block. Now on dopamine. For pacemaker placement today. - Objective Vital Signs & Weight: Vital Signs (12 hours) Temp Pulse Resp BP Pulse Ox 05/25/19 16:28 56 L 05/25/19 16:00 97.5 F L 05/25/19 12:20 56 L 12 05/25/19 10:25 97.5 F L 05/25/19 09:16 67 138/77 05/25/19 08:00 98 05/25/19 07:27 64 18 05/25/19 07:16 98.0 F Weight Weight 166 lb 3 oz Most Recent Monitor Data Heart Rate from ECG 61 NIBP 104/59 NIBP BP-Mean 74 Respiration from ECG 15 SpO2 99 I&O: 05/24/19 05/25/19 05/26/19 06:59 06:59 06:59 Intake Total 291 1137 Output Total 100 1025 Balance 191 112 Result Diagrams: 05/24/19 02:11 05/24/19 02:11 Additional Labs: Accuchecks 05/25/19 05/25/19 05/25/19 16:14 10:10 06:03 POC Glucose 186 H 118 H 110 05/24/19 21:19 POC Glucose 109 Hospitalist ROS - Medication Medications: Active Medications Generic Name Dose Route Start Last Admin Trade Name Freq PRN Reason Stop Dose Admin Hydrocodone Bitart/Acetaminophen 1 tab 05/23/19 23:53 05/25/19 14:52 [place] 5/325 PO 1 tab Q6H PRN Administration Moderate Pain (4-6) Albuterol/Ipratropium 3 ml 05/24/19 01:00 05/25/19 12:20 Duoneb NEB 3 ml [id number] BARBARA Administration Atorvastatin Calcium 20 mg 05/24/19 21:00 05/24/19 20:35 Lipitor PO 20 mg HS BARBARA Administration Budesonide 0.25 mg 05/24/19 06:30 05/25/19 07:27 Pulmicort Neb Solution NEB 0.25 mg BID-RT BARBARA Administration Hydralazine HCl 25 mg 05/24/19 09:00 05/25/19 16:28 Apresoline PO Not Given TID BARBARA Isosorbide Mononitrate 30 mg 05/24/19 09:00 05/25/19 09:16 Imdur Er PO 30 mg DAILY BARBARA Administration Sertraline HCl 100 mg 05/24/19 09:00 05/25/19 09:16 Zoloft PO 100 mg DAILY BARBARA Administration Sodium Chloride 10 ml 05/24/19 09:00 05/25/19 09:18 Flush - Normal Saline IVF 10 ml Q12HR BARBARA Administration Trazodone HCl 100 mg 05/24/19 21:00 05/24/19 20:35 Desyrel PO 100 mg HS BARBARA Administration Vitamin B Complex/Vit C/Folic Acid 1 tab 05/24/19 09:00 05/25/19 09:16 Nephro-Ramon Tablet PO 1 tab DAILY BARBARA Administration - Exam General Appearance: NAD Eye: anicteric sclera ENT: normocephalic atraumatic Neck: symmetric, no JVD Heart: RRR Respiratory: no wheezes, no rales, no ronchi, normal chest expansion Gastrointestinal: soft, non-tender, non-distended, normal bowel sounds Extremities: no cyanosis, no edema Neurological: cranial nerve grossly intact, no focal deficits Psychiatric: A&O x 3 Hosp A/P (1) Symptomatic bradycardia Code(s): R00.1 - BRADYCARDIA, UNSPECIFIED Status: Acute (2) SSS (sick sinus syndrome) Code(s): I49.5 - SICK SINUS SYNDROME Status: Acute (3) Moderate mitral regurgitation Code(s): I34.0 - NONRHEUMATIC MITRAL (VALVE) INSUFFICIENCY Status: Acute (4) Pulmonary HTN Code(s): I27.20 - PULMONARY HYPERTENSION, UNSPECIFIED Status: Acute (5) Elevated troponin Code(s): R79.89 - OTHER SPECIFIED ABNORMAL FINDINGS OF BLOOD CHEMISTRY Status : Acute (6) Acute coronary syndrome Code(s): I24.9 - ACUTE ISCHEMIC HEART DISEASE, UNSPECIFIED Status: Acute (7) Atrial flutter Code(s): I48.92 - UNSPECIFIED ATRIAL FLUTTER Status: Acute (8) DM type 2 (diabetes mellitus, type 2) Status: Chronic (9) ESRD (end stage renal disease) on dialysis Code(s): N18.6 - END STAGE RENAL DISEASE; Z99.2 - DEPENDENCE ON RENAL DIALYSIS Status: Chronic (10) HTN (hypertension) Code(s): I10 - ESSENTIAL (PRIMARY) HYPERTENSION Status: Acute (11) Cardiomyopathy Code(s): I42.9 - CARDIOMYOPATHY, UNSPECIFIED Status: Acute (12) Chronic systolic (congestive) heart failure Code(s): I50.22 - CHRONIC SYSTOLIC (CONGESTIVE) HEART FAILURE Status: Acute - Plan Continue Supportive care. Antithrombotic therapy and dopamine as per cardiology Evaluation and treatment of cardiomyopathy as per cardiology For pacemaker placement. HD as per Nephrology. Continue antihypertensives. Continue insulin therapy
[2019-05-25] MEDS: traZODone HCl 50 MG TAB PO SCH (21:23)
[2019-05-25] MEDS: Atorvastatin Calcium 20 MG TAB PO SCH (21:23)
--- NOTE | 2019-05-25 22:59 | CON ---
DATE OF CONSULTATION: 05/25/2019 I am seeing Mr. Gordon at our [facility] as an electrophysiology clinical program consultant in the step-down ICU. His problems are: 1. Sustained typical appearing atrial flutter with slow ventricular response, noted on May 02 and current admission May 23. a. Symptomatic bradycardia, now off beta blockers requiring dopamine therapy. b. Chronic CHF with reduced LVEF at 40% to 45%, [id number] TR, moderate MR on 2D echo on 05/24/2019. 2. History of coronary artery disease. a. Coronary artery bypass grafting surgery x2 vessels in 2005. 3. End-stage renal disease on hemodialysis, left upper arm arteriovenous fistula. 4. History of rectal bleed. 5. History of recent pneumonia. 6. Peptic ulcer disease. 7. History of small bowel obstruction in the past. ALLERGIES: LORAZEPAM. MEDICATIONS: At home include: 1. Albuterol. 2. Clonidine. 3. Coreg. 4. Budesonide. 5. Lipitor. 6. Trazodone. 7. Ultram. 8. Zoloft. 9. [place]. 10. Hydralazine. 11. Folic acid. 12. Imdur. 13. DuoNebs. SUBJECTIVE: Mr. Gordon is here with marked fatigue and weakness, this was noted by his after he was picked up from his dialysis at 4 p.m. The patient was standing up, had a hard time getting into the car. Normally he ambulates without difficulty. He does not complain of chest pains or significant dyspnea. He does have some cough, which is dry. He has finished his antibiotic course for recently diagnosed pneumonia. In the ER, he was noted to be in atrial flutter, which is not a new finding. In fact in beginning of April, during his last hospitalization same type of flutter was registered on his 2 EKGs. Dopamine and dobutamine were attempted. Initial blood pressure markedly elevated. Currently, patient is doing fair. Denies smoking EtOH or drug abuse. Rest of 12-point review of system otherwise unremarkable. PAST MEDICAL HISTORY: As above, he is usually followed by Dr. Brink, his river pilot in [place] and [place]. There were some plans regarding EP evaluation , but has not recurred just yet regarding bradycardia. He does have history of right knee surgery and hernia repair. SOCIAL HISTORY: The patient denies smoking, EtOH or drug abuse. Quit smoking just 10 days ago. Lives with his who was present during my exam. FAMILY HISTORY: Significant for mother dying at age 25 due to gunshot wound. Father in the 30s by being stabbed. OBJECTIVE DATA: VITAL SIGNS: Blood pressure 123/62, heart rate 56, respirations 12, patient temperature 97.5 degrees Fahrenheit. GENERAL: Alert and oriented man, in no apparent distress. NECK: Supple. Jugular veins not distended. CHEST: Coarse with crackles. HEART: Sounds are irregularly irregular and bradycardic. S1, S2 are variable, 1/6 holosystolic murmur is heard. PMI is nondisplaced. ABDOMEN: Benign bowel sounds positive. EXTREMITIES: Lower extremity without edema, clubbing, or cyanosis. Pulses are adequate. NEUROLOGIC: Patient is nonfocal. MUSCULOSKELETAL: No joint swelling or deformity. SKIN: Without rash. DATABASE: EKG is reviewed. It appears to show typical appearing likely isthmus dependent atrial flutter with slow ventricular conduction of 40. History reveals ventricular rates in the 50s and 60s on dopamine drip. LABORATORY DATA: White cell count 5.6, hemoglobin is 12.9, platelet count is 90 yesterday. The INR is 1.1, PTT is 35.3 today after holding heparin. Sodium 141 , potassium 3.6, BUN is 27, creatinine 4.03. ASSESSMENT AND PLAN: Mr. Gordon is a pleasant 73-year-old man with history of CAD, mild ischemic cardiomyopqathy. He has a history of sustained atrial flutter. It seems to be persisting at least a month in duration. Interestingly, the flutter is with slow ventricular response, which could suggest atrioventricular julia disease. Indeed, his prior EKGs back in 2018 were concerned with marked first-degree AV block and that his QRS is relatively narrow, which speak against severe infra-Hisian disease. Nevertheless, he is markedly symptomatic and currently off beta blockers. The patient is not entirely clear whether he is still on this medication or not. Either way, currently he does require pressors for maintaining his heart rate. We discussed the etiology of atrial flutter and also difference with atrial flutter and fibrillation. The slow ventricular rate conduction due to AV julia or infra-Hisian disease also discussed. We discussed treatment options, which could include a CHRIS-guided cardioversion versus ablation and possibly pacemaker placement. Pros and cons of this were discussed. He is interested in undergoing the CHRIS guided ablation procedureof the atrial flutter circuit. We discussed the chance of infection, bleeding, stroke, tamponade recurrence, especially atrial fibrillation. Hence, the anticoagulation prior to admission, a CHRIS might be advised to be performed prior to the ablation procedure. This was scheduled at the nearest available date. Thank you again for allowing me to participate in the care of this patient. Job ID: [id number] MTDD
[2019-05-26 02:31] LABS: Hemoglobin 12.8 g/dL (14.0-18.0); Platelet Count 93 thou/uL (130-400)
[2019-05-26] MEDS: DOPamine 400 MG/D5W 250 ML 250 ML IVPB SCH (04:35)
[2019-05-26] MEDS: Budesonide 0.25 MG/2 ML NEB NEB SCH ×2 (07:21→19:14)
[2019-05-26 08:39] LABS: Anion Gap 14 mmol/L (10-20); BUN (Urea Nitrogen) 33 mg/dL (8.4-25.7); Calc. Creatinine Clearance 12 mL/min (70-130); Calcium 9.4 mg/dL (7.8-10.44); Carbon Dioxide 28 mmol/L (23-31); Chloride 101 mmol/L (98-107); Estimated GFR-MDRD 12; Glucose 122 mg/dL (83-110); Potassium 3.7 mmol/L (3.5-5.1); Sodium 139 mmol/L (136-145)
[2019-05-26 08:59] LABS: HBSAg Index 0.37 S/CO (0-0.99); Hep B Surf Ag Non-Reactive S/CO (NonReactive)
[2019-05-26] MEDS ORDERED: Cephalexin 250 MG CAP PO SCH (09:00)
[2019-05-26 09:01] LABS: HBSAB Concentration 321.36 mIU/mL; Hep B Surf AB Reactive (NonReactive)
[2019-05-26] MEDS: Folic Acid/Vit B Comp W-C PO SCH (10:37)
[2019-05-26] MEDS: hydrALAZINE 25 MG TAB PO SCH ×3 (10:38→21:38)
[2019-05-26] MEDS: Isosorbide Mononitrate (ER) 30 MG TAB PO SCH (10:38)
--- NOTE | 2019-05-26 13:20 | PRG ---
DATE OF SERVICE: 05/26/2019 SUBJECTIVE: Patient was seen and examined at bedside and overnight events noted. Patient denies any shortness of breath or chest pain or palpitation. No history of nausea or vomiting or diarrhea or fever or chills or cramps. OBJECTIVE: GENERAL: This is a well-built male, in no acute distress. VITAL SIGNS: Temperature 97.7, pulse 53, respiratory rate 18, blood pressure 105/64. HEENT: Atraumatic, normocephalic. Oral mucosa is moist NECK: Supple. CARDIOVASCULAR: S1, S2 heard. Rate and rhythm regular. RESPIRATORY: Clear to auscultation. GASTROINTESTINAL: Abdomen is soft. MUSCULOSKELETAL: No tenderness. No edema. DERMATOLOGIC: No skin rash. NEUROLOGIC: Alert and awake and oriented X3. No focal neurologic deficits. Moving all the extremities. PSYCHIATRIC: Mood and affect normal. LABORATORY DATA: Potassium is 3.7, BUN is 33, creatinine is 5.3. ASSESSMENT AND PLAN: 1. End-stage renal disease, continue on hemodialysis as tolerated. 2. Edema, controlled. 3. Hypertension, stable. 4. Anemia, monitor hemoglobin. 5. Plan to continue on dialysis as tolerated. Job ID: [id number]
--- NOTE | 2019-05-26 14:06 | PDOC.HOSPP ---
- Subjective Encounter Date: 05/26/19 Encounter Time: 10:04 Subjective: 73 y/o male with ESRD on HD, chronic CHF, CAD admitted with acute generalized weakness after HD. Found to have symptomatic bradycardia from atrial flutter with 5:1 block. Still on dopamine. For CHRIS cardioversion instead as per EPS. No new problem. - Objective Vital Signs & Weight: Vital Signs (12 hours) Temp Pulse Resp BP Pulse Ox 05/26/19 13:17 61 14 05/26/19 11:46 98.4 F 05/26/19 10:38 53 L 105/64 05/26/19 08:00 97 05/26/19 07:33 97.7 F 05/26/19 07:22 53 L 12 05/26/19 03:31 98.0 F Weight Weight 166 lb 14.4 oz Most Recent Monitor Data Heart Rate from ECG 68 NIBP 144/83 NIBP BP-Mean 103 Respiration from ECG 20 SpO2 94 I&O: 05/25/19 05/26/19 05/27/19 06:59 06:59 06:59 Intake Total 1137 1249 Output Total 1025 420 Balance 112 829 Result Diagrams: 05/26/19 02:14 05/26/19 08:12 Additional Labs: Accuchecks 05/26/19 05/26/19 05/25/19 10:42 05:48 20:23 POC Glucose 151 H 100 131 H 05/25/19 16:14 POC Glucose 186 H Hospitalist ROS - Medication Medications: Active Medications Generic Name Dose Route Start Last Admin Trade Name Freq PRN Reason Stop Dose Admin Hydrocodone Bitart/Acetaminophen 1 tab 05/23/19 23:53 05/25/19 14:52 [place] 5/325 PO 1 tab Q6H PRN Administration Moderate Pain (4-6) Albuterol/Ipratropium 3 ml 05/24/19 01:00 05/26/19 13:17 Duoneb NEB 3 ml [id number] BARBARA Administration Atorvastatin Calcium 20 mg 05/24/19 21:00 05/25/19 21:23 Lipitor PO 20 mg HS BARBARA Administration Budesonide 0.25 mg 05/24/19 06:30 05/26/19 07:21 Pulmicort Neb Solution NEB 0.25 mg BID-RT BARBARA Administration Hydralazine HCl 25 mg 05/24/19 09:00 12/31/19 10:38 Apresoline PO Not Given TID BARBARA Dopamine HCl/Dextrose 250 mls @ 0 mls/hr 05/25/19 14:46 05/26/19 04:35 Dopamine 400 Mg/D5w 250 Ml IVPB 250 mls INF BARBARA Administration Protocol As Directed Isosorbide Mononitrate 30 mg 05/24/19 09:00 05/26/19 10:38 Imdur Er PO Not Given DAILY BARBARA Sertraline HCl 100 mg 05/24/19 09:00 05/26/19 10:38 Zoloft PO 100 mg DAILY BARBARA Administration Sodium Chloride 10 ml 05/24/19 09:00 05/26/19 10:38 Flush - Normal Saline IVF 10 ml Q12HR BARBARA Administration Trazodone HCl 100 mg 05/24/19 21:00 05/25/19 21:23 Desyrel PO 100 mg HS BARBARA Administration Vitamin B Complex/Vit C/Folic Acid 1 tab 05/24/19 09:00 05/26/19 10:37 Nephro-Ramon Tablet PO 1 tab DAILY BARBARA Administration - Exam General Appearance: awake alert Eye: anicteric sclera ENT: normocephalic atraumatic Neck: symmetric, no JVD Heart: RRR, murmur present Respiratory: no wheezes, no rales, no ronchi, normal chest expansion Gastrointestinal: soft, non-tender, non-distended, normal bowel sounds Extremities: no cyanosis, no edema Neurological: cranial nerve grossly intact, no focal deficits Psychiatric: A&O x 3 Hosp A/P (1) Symptomatic bradycardia Code(s): R00.1 - BRADYCARDIA, UNSPECIFIED Status: Acute (2) SSS (sick sinus syndrome) Code(s): I49.5 - SICK SINUS SYNDROME Status: Acute (3) Moderate mitral regurgitation Code(s): I34.0 - NONRHEUMATIC MITRAL (VALVE) INSUFFICIENCY Status: Acute (4) Pulmonary HTN Code(s): I27.20 - PULMONARY HYPERTENSION, UNSPECIFIED Status: Acute (5) Elevated troponin Code(s): R79.89 - OTHER SPECIFIED ABNORMAL FINDINGS OF BLOOD CHEMISTRY Status : Acute (6) Acute coronary syndrome Code(s): I24.9 - ACUTE ISCHEMIC HEART DISEASE, UNSPECIFIED Status: Acute (7) Atrial flutter Code(s): I48.92 - UNSPECIFIED ATRIAL FLUTTER Status: Acute (8) DM type 2 (diabetes mellitus, type 2) Status: Chronic (9) ESRD (end stage renal disease) on dialysis Code(s): N18.6 - END STAGE RENAL DISEASE; Z99.2 - DEPENDENCE ON RENAL DIALYSIS Status: Chronic (10) HTN (hypertension) Code(s): I10 - ESSENTIAL (PRIMARY) HYPERTENSION Status: Acute (11) Cardiomyopathy Code(s): I42.9 - CARDIOMYOPATHY, UNSPECIFIED Status: Acute (12) Chronic systolic (congestive) heart failure Code(s): I50.22 - CHRONIC SYSTOLIC (CONGESTIVE) HEART FAILURE Status: Acute - Plan Continue dopamine infusion. For CHRIS cardioversion. Continue anticoagulation Evaluation and treatment of cardiomyopathy as per cardiology HD as per Nephrology. Continue antihypertensives. Continue insulin therapy
--- NOTE | 2019-05-26 16:36 | PDOC.EP ---
- Subjective Date: 05/26/19 Time: 09:00 Interval History: follow up for atrial flutter. Feels well. he did not voice any concerns to me today. - Review of Systems Constitutional: denies: chills, fever, malaise, sweats, weakness, other Respiratory: denies: cough, dry, shortness of breath, wheezing Cardiology: denies: chest pain, heart racing, light headedness, passing out Gastrointestinal: denies: abdominal pain, constipation, diarrhea - Objective Allergies/Adverse Reactions: Allergies Allergy/AdvReac Type Severity Reaction Status Date / Time lorazepam [From Ativan] AdvReac HALLUCINATIONS, Verified 05/09/18 21:14 AGITATION Current Medications Acetaminophen (Tylenol) 650 mg PO Q4H PRN PRN Reason: Headache/Fever/Mild Pain (1-3) Hydrocodone Bitart/Acetaminophen ([place] 5/325) 1 tab PO Q6H PRN PRN Reason: Moderate Pain (4-6) Last Admin: 05/25/19 14:52 Dose: 1 tab Albuterol/Ipratropium (Duoneb) 3 ml NEB [id number] BARBARA Last Admin: 05/26/19 13:17 Dose: 3 ml Atorvastatin Calcium (Lipitor) 20 mg PO HS BARBARA Last Admin: 05/25/19 21:23 Dose: 20 mg Atropine Sulfate (Atropine) 1 mg IVP Q3H PRN PRN Reason: HR<30/min Bisacodyl (Dulcolax) 10 mg [place] DAILYPRN PRN PRN Reason: Constipation Budesonide (Pulmicort Neb Solution) 0.25 mg NEB BID-RT BARBARA Last Admin: 05/26/19 07:21 Dose: 0.25 mg Dextrose/Water (Dextrose 50%) 25 gm SLOW IVP PRN PRN PRN Reason: Hypoglycemia Glucagon (Glucagon) 1 mg IM PRN PRN PRN Reason: Hypoglycemia Guaifenesin/Dextromethorphan (Robitussin Dm) 15 ml PO Q4H PRN PRN Reason: Cough Hydralazine HCl (Apresoline) 25 mg PO TID BARBARA Last Admin: 05/26/19 10:38 Dose: Not Given Dextrose/Water (D5w) 1,000 mls @ 0 mls/hr IV .Q0M PRN PRN Reason: Hypoglycemia Dopamine HCl/Dextrose (Dopamine 400 Mg/D5w 250 Ml) 250 mls @ 0 mls/hr IVPB INF BARBARA; Protocol Last Admin: 05/26/19 04:35 Dose: 250 mls Insulin Human Lispro (Humalog) 0 units SC .MODERATE SLIDING SC PRN PRN Reason: Moderate Correctional Scale Insulin Human Lispro (Humalog) 0 units SC .BEDTIME SLIDING SC PRN PRN Reason: Bedtime Correctional Scale Isosorbide Mononitrate (Imdur Er) 30 mg PO DAILY [facility] Last Admin: 05/26/19 10:38 Dose: Not Given Senna/Docusate Sodium (Senokot S) 2 tab PO BIDPRN PRN PRN Reason: Constipation Sertraline HCl (Zoloft) 100 mg PO DAILY [facility] Last Admin: 05/26/19 10:38 Dose: 100 mg Sodium Chloride (Flush - Normal Saline) 10 ml IVF Q12HR [facility] Last Admin: 05/26/19 10:38 Dose: 10 ml Sodium Chloride (Flush - Normal Saline) 10 ml IVF PRN PRN PRN Reason: Saline Flush Trazodone HCl (Desyrel) 100 mg PO HS [facility] Last Admin: 05/25/19 21:23 Dose: 100 mg Vitamin B Complex/Vit C/Folic Acid (Nephro-Ramon Tablet) 1 tab PO DAILY [facility] Last Admin: 05/26/19 10:37 Dose: 1 tab Vital Signs & Weight: Vital Signs Temp Pulse Resp BP Pulse Ox 05/26/19 15:18 98.4 F 05/26/19 13:17 61 14 05/26/19 11:46 98.4 F 05/26/19 10:38 53 L 105/64 05/26/19 08:00 97 05/26/19 07:33 97.7 F 05/26/19 07:22 53 L 12 Weight 166 lb 14.4 oz I/O: I/O 05/25/19 05/26/19 05/27/19 06:59 06:59 06:59 Intake Total 1137 1249 Output Total 1025 420 Balance 112 829 - Physical Exam General: alert & oriented x3, appears well, no apparent distress, speech clear, affect appropriate HEENT: mucus membranes moist Neck: supple neck, midline trachea, no JVD/HJR, no masses, no bruit, no lymphadenopathy, no thromegaly Cardiology: regular rate, irregularly irregular Lungs: clear to auscultation, normal breath sounds, no wheeze, rales, rhonchi Neurology: cranial nerve 2-12 intact, grossly intact, sensory function intact - Chadsvasc Risk factors Age 65-74: 1 Vascular disease: 1 Risk Score: 2 - Labs Result Diagrams: 05/26/19 02:14 05/26/19 08:12 - EKG Interpretation EKG shows: Typical atrial flutter (slow 50-60s) - Assessment/Plan Assessment/Plan: 1. Typical atrial flutter - slow VR 2. history of 1st degree AV block and infrahisian disease 3. Symptomatic bradycardia -requiring recent + chronotropic support 4. ESRD 5.Recent pneumonia Continue as planned for CHRIS/ flutter ablation on AM 05/28/19.
--- NOTE | 2019-05-26 17:42 | PDOC.CPN ---
- Subjective Date: 05/26/19 Time: 17:50 Interval history: The pt seen and examined. No overnight events. No cardiac complaints. - Objective Allergies/Adverse Reactions: Allergies Allergy/AdvReac Type Severity Reaction Status Date / Time lorazepam [From Ativan] AdvReac HALLUCINATIONS, Verified 05/09/18 21:14 AGITATION Visit Medications: Current Medications Acetaminophen (Tylenol) 650 mg PO Q4H PRN PRN Reason: Headache/Fever/Mild Pain (1-3) Hydrocodone Bitart/Acetaminophen ([place] 5/325) 1 tab PO Q6H PRN PRN Reason: Moderate Pain (4-6) Last Admin: 05/25/19 14:52 Dose: 1 tab Albuterol/Ipratropium (Duoneb) 3 ml NEB [id number] BARBARA Last Admin: 05/26/19 13:17 Dose: 3 ml Atorvastatin Calcium (Lipitor) 20 mg PO HS [facility]BAR[facility] Last Admin: 05/25/19 21:23 Dose: 20 mg Atropine Sulfate (Atropine) 1 mg IVP Q3H PRN PRN Reason: HR<30/min Bisacodyl (Dulcolax) 10 mg [place] DAILYPRN PRN PRN Reason: Constipation Budesonide (Pulmicort Neb Solution) 0.25 mg NEB BID-RT BARBARA Last Admin: 05/26/19 07:21 Dose: 0.25 mg Dextrose/Water (Dextrose 50%) 25 gm SLOW IVP PRN PRN PRN Reason: Hypoglycemia Glucagon (Glucagon) 1 mg IM PRN PRN PRN Reason: Hypoglycemia Guaifenesin/Dextromethorphan (Robitussin Dm) 15 ml PO Q4H PRN PRN Reason: Cough Hydralazine HCl (Apresoline) 25 mg PO TID [facility]BAR[facility] Last Admin: 05/26/19 16:39 Dose: Not Given Dextrose/Water (D5w) 1,000 mls @ 0 mls/hr IV .Q0M PRN PRN Reason: Hypoglycemia Dopamine HCl/Dextrose (Dopamine 400 Mg/D5w 250 Ml) 250 mls @ 0 mls/hr IVPB INF BARBARA; Protocol Last Admin: 05/26/19 04:35 Dose: 250 mls Insulin Human Lispro (Humalog) 0 units SC .MODERATE SLIDING SC PRN PRN Reason: Moderate Correctional Scale Insulin Human Lispro (Humalog) 0 units SC .BEDTIME SLIDING SC PRN PRN Reason: Bedtime Correctional Scale Isosorbide Mononitrate (Imdur Er) 30 mg PO DAILY [facility] Last Admin: 05/26/19 10:38 Dose: Not Given Senna/Docusate Sodium (Senokot S) 2 tab PO BIDPRN PRN PRN Reason: Constipation Sertraline HCl (Zoloft) 100 mg PO DAILY [facility] Last Admin: 05/26/19 10:38 Dose: 100 mg Sodium Chloride (Flush - Normal Saline) 10 ml IVF Q12HR [facility] Last Admin: 05/26/19 10:38 Dose: 10 ml Sodium Chloride (Flush - Normal Saline) 10 ml IVF PRN PRN PRN Reason: Saline Flush Trazodone HCl (Desyrel) 100 mg PO HS [facility] Last Admin: 05/25/19 21:23 Dose: 100 mg Vitamin B Complex/Vit C/Folic Acid (Nephro-Ramon Tablet) 1 tab PO DAILY [facility] Last Admin: 05/26/19 10:37 Dose: 1 tab Vital Signs & Weight: Vital Signs Temp Pulse Resp BP Pulse Ox 05/26/19 16:39 61 05/26/19 15:18 98.4 F 05/26/19 13:17 61 14 05/26/19 11:46 98.4 F 05/26/19 10:38 53 L 105/64 05/26/19 08:00 97 05/26/19 07:33 97.7 F 05/26/19 07:22 53 L 12 Weight 166 lb 14.4 oz - Physical Exam General: alert & oriented x3 HEENT: mucus membranes moist Neck: supple neck Cardiac: irregularly regular Lungs: decreased breath sounds Neuro: cranial nerve 2-12 intact - Labs Result Diagrams: 05/26/19 02:14 05/26/19 08:12 Troponin/CKMB CK-MB (CK-2) 1.3 ng/mL (0-6.6) 05/23/19 19:14 Troponin I 0.121 ng/mL (< 0.028) H 05/24/19 02:11 - Telemetry Supraventricular conduction: atrial flutter - Assessment/Plan Assessment/Plan: 1. Typical atrial flutter with slow ventricular response - HR has been 60s with Dopamine drip; plan for CHRIS/RFA/BiV PM placement on ? He is not on OAC or heparin due to low Platelet level. 2. Symptomatic bradycardia - stable with Dopamine drip; bblocker is on hold 3. CAD with hx of CABG 4. ESRD with HD 5. Mod MR 6. HTN - stable Recent pneumonia * Dr Aleman's pt Pt. seen and eval. by me. I agree with the A/P by the OFFICE SECRETARY. Plan for ablation of the atrial flutter later this week. He may need a pacemaker or AICD post ablation. appreciate EP input. Chest clear, regular rhythm, bradycardia. atrial flutter on the monitor.
[2019-05-26] MEDS: Atorvastatin Calcium 20 MG TAB PO SCH (21:40)
[2019-05-26] MEDS: traZODone HCl 50 MG TAB PO SCH (21:40)
[2019-05-27] MEDS: DOPamine 400 MG/D5W 250 ML 250 ML IVPB SCH ×2 (02:16→20:11)
[2019-05-27] MEDS: Budesonide 0.25 MG/2 ML NEB NEB SCH ×2 (07:31→18:26)
[2019-05-27] MEDS: HYDROcodone/Acetaminophen 5/325 mg Tablet PO PRN ×2 (07:48→20:12)
[2019-05-27] MEDS: Isosorbide Mononitrate (ER) 30 MG TAB PO SCH (07:49)
[2019-05-27] MEDS: Folic Acid/Vit B Comp W-C PO SCH (07:49)
[2019-05-27] MEDS: hydrALAZINE 25 MG TAB PO SCH ×3 (07:49→20:13)
--- NOTE | 2019-05-27 13:31 | PRG ---
DATE OF SERVICE: SUBJECTIVE: Patient was seen and examined at bedside and overnight events noted. Patient denies any shortness of breath or chest pain or palpitation. No history of nausea or vomiting or diarrhea or fever or chills or cramps. OBJECTIVE: GENERAL: This is a well-built male, in no apparent distress. VITAL SIGNS: Temperature 98.3. Heart rate 66. Respiratory rate 20. Blood pressure 111/68. HEENT: Atraumatic, normocephalic. Oral mucosa is moist NECK: Supple. CARDIOVASCULAR: S1, S2 heard. Rate and rhythm regular. RESPIRATORY: Clear to auscultation. GASTROINTESTINAL: Abdomen is soft. MUSCULOSKELETAL: No tenderness. No edema. DERMATOLOGIC: No skin rash. NEUROLOGIC: Alert and awake and oriented X3. No focal neurologic deficits. Moving all the extremities. PSYCHIATRIC: Mood and affect normal. LABORATORY DATA: Not done today. ASSESSMENT AND PLAN: 1. End-stage renal disease. Continue on hemodialysis as tolerated. Plan to continue dialysis on Saturday and Saturday as tolerated. 2. Edema, controlled. 3. Hypertension, stable. 4. Anemia. We will monitor hemoglobin. Job ID: [id number]
--- NOTE | 2019-05-27 15:56 | PDOC.HOSPP ---
- Subjective Subjective: Seen and examined on the intermediate medical care floor. Patient resting in bed. Patient gets short of breath and feels weak when he moves out of bed. Patient remains on dopamine drip for symptomatic bradycardia. Plan for CHRIS with possible cardioversion by Dr. Mathew on 05/28/19. Family at bedside, all questions answered in detail. Patient and family are happy with plan of care. - Objective Vital Signs & Weight: Vital Signs (12 hours) Temp Pulse Resp BP Pulse Ox 05/27/19 13:14 65 14 91 L 05/27/19 10:31 98.3 F 05/27/19 08:00 96 05/27/19 07:49 68 134/68 05/27/19 07:29 61 15 96 05/27/19 07:15 97.6 F 05/27/19 04:00 98.7 F Weight Weight 166 lb 14.4 oz Most Recent Monitor Data Heart Rate from ECG 66 NIBP 111/68 NIBP BP-Mean 82 Respiration from ECG 6 SpO2 92 I&O: 05/26/19 05/27/19 05/28/19 06:59 06:59 06:59 Intake Total 1249 1183 Output Total 420 900 Balance 829 283 Result Diagrams: 05/26/19 02:14 05/26/19 08:12 Additional Labs: Accuchecks 05/27/19 05/27/19 05/26/19 10:14 07:04 20:16 POC Glucose 194 H 111 H 156 H 05/26/19 16:34 POC Glucose 133 H Radiology Reviewed by me: Yes Hospitalist ROS - Review of Systems All other systems reviewed; all pertinent +/- noted in HPI/Subj - Medication Medications: Active Medications Generic Name Dose Route Start Last Admin Trade Name Freq PRN Reason Stop Dose Admin Hydrocodone Bitart/Acetaminophen 1 tab 05/23/19 23:53 05/27/19 07:48 [place] 5/325 PO 1 tab Q6H PRN Administration Moderate Pain (4-6) Albuterol/Ipratropium 3 ml 05/24/19 01:00 05/27/19 13:14 Duoneb NEB 3 ml [id number] BARBARA Administration Atorvastatin Calcium 20 mg 05/24/19 21:00 05/26/19 21:40 Lipitor PO 20 mg HS BARBARA Administration Budesonide 0.25 mg 05/24/19 06:30 05/27/19 07:31 Pulmicort Neb Solution NEB 0.25 mg BID-RT BARBARA Administration Hydralazine HCl 25 mg 05/24/19 09:00 05/27/19 07:49 Apresoline PO 25 mg TID BARBARA Administration Dopamine HCl/Dextrose 250 mls @ 0 mls/hr 05/25/19 14:46 05/27/19 02:16 Dopamine 400 Mg/D5w 250 Ml IVPB 250 mls INF BARBARA Administration Protocol As Directed Isosorbide Mononitrate 30 mg 05/24/19 09:00 05/27/19 07:49 Imdur Er PO 30 mg DAILY BARBARA Administration Sertraline HCl 100 mg 05/24/19 09:00 05/27/19 07:49 Zoloft PO 100 mg DAILY BARBARA Administration Sodium Chloride 10 ml 05/24/19 09:00 05/27/19 07:49 Flush - Normal Saline IVF 10 ml Q12HR BARBARA Administration Trazodone HCl 100 mg 05/24/19 21:00 05/26/19 21:40 Desyrel PO 100 mg HS BARBARA Administration Vitamin B Complex/Vit C/Folic Acid 1 tab 05/24/19 09:00 05/27/19 07:49 Nephro-Ramon Tablet PO 1 tab DAILY BARBARA Administration - Exam General Appearance: NAD, awake alert Eye: PERRL ENT: normocephalic atraumatic, moist mucosa Neck: supple, symmetric, no lymphadenopathy Heart: no murmur, no gallops, no rubs Respiratory: no wheezes, no rales, no ronchi Gastrointestinal: soft, non-tender, non-distended, no guarding, no rigidity Extremities: 1+ LE edema Skin: no lesions, no rashes Neurological: cranial nerve grossly intact, no focal deficits Musculoskeletal: generalized weakness Psychiatric: normal affect, normal behavior Hosp A/P (1) Acute coronary syndrome Code(s): I24.9 - ACUTE ISCHEMIC HEART DISEASE, UNSPECIFIED Status: Acute (2) Atrial flutter Code(s): I48.92 - UNSPECIFIED ATRIAL FLUTTER Status: Acute (3) Cardiomyopathy Code(s): I42.9 - CARDIOMYOPATHY, UNSPECIFIED Status: Acute (4) Chronic systolic (congestive) heart failure Code(s): I50.22 - CHRONIC SYSTOLIC (CONGESTIVE) HEART FAILURE Status: Acute (5) Elevated troponin Code(s): R79.89 - OTHER SPECIFIED ABNORMAL FINDINGS OF BLOOD CHEMISTRY Status : Acute (6) HTN (hypertension) Code(s): I10 - ESSENTIAL (PRIMARY) HYPERTENSION Status: Acute (7) Moderate mitral regurgitation Code(s): I34.0 - NONRHEUMATIC MITRAL (VALVE) INSUFFICIENCY Status: Acute (8) Pulmonary HTN Code(s): I27.20 - PULMONARY HYPERTENSION, UNSPECIFIED Status: Acute (9) SSS (sick sinus syndrome) Code(s): I49.5 - SICK SINUS SYNDROME Status: Acute (10) Symptomatic bradycardia Code(s): R00.1 - BRADYCARDIA, UNSPECIFIED Status: Acute (11) NSTEMI (non-ST elevated myocardial infarction) Code(s): I21.4 - NON-ST ELEVATION (NSTEMI) MYOCARDIAL INFARCTION Status: Acute (12) Nausea with vomiting, unspecified Code(s): R11.2 - NAUSEA WITH VOMITING, UNSPECIFIED Status: Acute (13) Pneumonia Code(s): J18.9 - PNEUMONIA, UNSPECIFIED ORGANISM Status: Acute (14) SOB (shortness of breath) Code(s): R06.02 - SHORTNESS OF BREATH Status: Acute (15) Chronic systolic heart failure Code(s): I50.22 - CHRONIC SYSTOLIC (CONGESTIVE) HEART FAILURE Status: Chronic (16) DM type 2 (diabetes mellitus, type 2) Status: Chronic (17) ESRD (end stage renal disease) on dialysis Code(s): N18.6 - END STAGE RENAL DISEASE; Z99.2 - DEPENDENCE ON RENAL DIALYSIS Status: Chronic - Plan Plan: intermediate medical care floor cardiology consultation, recommendations appreciated fibre optics jointer consultation, recommendations appreciated nephrology consultation, recommendations appreciated patient may require CHRIS with cardioversion, plan for 05/28/19 dopamine for symptomatic bradycardia hemodialysis per nephrology blood pressure control blood sugar control continue other home medications as able G.I. prophylaxis DVT prophylaxis replace electrolytes as needed long-term prognosis is guarded
[2019-05-27] MEDS: Atorvastatin Calcium 20 MG TAB PO SCH (20:12)
[2019-05-27] MEDS: traZODone HCl 50 MG TAB PO SCH (20:12)
[2019-05-28 01:48] LABS: Hemoglobin 12.6 g/dL (14.0-18.0); Platelet Count 91 thou/uL (130-400)
[2019-05-28] MEDS ORDERED: Heparin (Artline) 500 ML ONE (06:38)
[2019-05-28] MEDS ORDERED: Heparin 10,000 UNITS/1 ML VIAL ONE (06:38)
[2019-05-28] MEDS ORDERED: Fentanyl 100 MCG/2 ML VIAL ONE (06:48)
[2019-05-28] MEDS ORDERED: Ketamine 50 MG/ML (10ML VIAL) ONE (06:48)
[2019-05-28] MEDS ORDERED: Midazolam HCl 2 mg/2 ml Vial ONE (06:48)
[2019-05-28] MEDS ORDERED: Propofol 500 MG/50 ML VIAL ONE ×2 (06:48→08:03)
[2019-05-28] MEDS ORDERED: Phenylephrine HCL 10 MG/ML VIAL ONE (07:30)
[2019-05-28] MEDS: Budesonide 0.25 MG/2 ML NEB NEB SCH ×2 (07:56→18:54)
--- NOTE | 2019-05-28 09:26 | OP ---
DATE OF PROCEDURE: 05/28/2019 PROCEDURE PERFORMED: Electrophysiology study and radiofrequency ablation. REASON FOR PROCEDURE: Mr. Colton Gordon is a 73-year-old man with a history of atrial flutter and bradycardia. He presented with sustained typical atrial flutter, unrelenting from the last admission, who also had a slow ventricular response. He is here for EP study and ablation. CHRIS prior to the procedure demonstrates no intracardiac clots. DESCRIPTION OF PROCEDURE: The patient received propofol by anesthesia specialist for deep sedation. After adequate level of sedation achieved, the right femoral venous area was prepped, draped, and anesthetized using subcutaneous lidocaine. Under ultrasound guidance, the right femoral vein was cannulated x2. Two 8-[place] short sheaths were introduced, through which a [employer] SFST catheter was advanced to the right atrium and used to image the right atrium, His bundle, CS, and cavotricuspid isthmus areas. Also, a decapolar catheter was then advanced to the right atrium, right ventricle, His bundle, AV node, and CS position. Pacing mapping and recording were performed including pacing the left atrium via the CS. Following findings were noted. Baseline rhythm was atrial flutter with flutter cycle length about 300 milliseconds. The HV was 41 milliseconds. Sinus node recovery time after the flutter ablation was at 12:41 with corrected sinus node recovery time was 300 milliseconds. AV Wenckebach cycle length was 570 milliseconds after coming off dopamine. Retrograde Wenckebach cycle length was 450 milliseconds. Central AV julia ERP was measured at 600/380 milliseconds without evidence of dual AV julia pathway. Overdrive pacing at the cavotricuspid isthmus entering the tachycardia and the post-pacing interval matched the tachycardia cycle length. Radiofrequency ablation at the cavotricuspid isthmus was performed, delivering 2 lesions at total duration of 1 minute and 28 seconds with 40 cervantes power. This interrupted the atrial flutter and proximal CS mapping was performed, demonstrating with a transisthmus time of 230 milliseconds. This was repeated on and off dopamine. RV pacing was performed as above and repeated atrial overdrive pacing down to 200 milliseconds, did not reinduce atrial flutter or atrial fibrillation or any other SVT. At the end of the case, cardiac silhouette did not change. The catheter was withdrawn from the body and no complications noted. CONCLUSIONS: 1. Baseline typical isthmus-dependent atrial flutter. 2. Cavotricuspid isthmus ablation interrupts the flutter and prolonged transisthmus time over 230 milliseconds. Also rendered the atrial arrhythmias non-reinducible. 3. Abnormal AV julia function with AV Wenckebach about 590 milliseconds. 4. No evidence of accessory pathway or dual AV julia physiology. PLAN: 1. Continue monitoring for bradyarrhythmias. Consider pacing if symptomatic bradycardia recurs. 2. Continue to monitor for atrial arrhythmias. Consider anticoagulation if recurrent atrial arrhythmias seen. At this point, due to low platelet counts and end-stage renal disease, we will hold off anticoagulation post ablation. Job ID: [id number]
[2019-05-28] MEDS ORDERED: Glycopyrrolate 0.2 MG/ML 5 ML SYRINGE ONE (10:20)
--- NOTE | 2019-05-28 14:39 | PDOC.HOSPP ---
- Subjective Subjective: Patient went for CHRIS, Case discussed with weatherization and housing inspector specialist to states that there was no clot identified then proceded with cardiovesion. Patient tolerated procedure well without intraoperative complications. Will continue to monitor for bradycardia or hypotension. - Objective Vital Signs & Weight: Vital Signs (12 hours) Temp BP Pulse Ox 05/28/19 12:00 97.2 F L 05/28/19 10:58 97 05/28/19 06:01 131/69 05/28/19 04:00 97.9 F Weight Weight 163 lb 5.8 oz Most Recent Monitor Data Heart Rate from ECG 62 NIBP 151/80 NIBP BP-Mean 103 Respiration from ECG 3 SpO2 92 I&O: 05/27/19 05/28/19 05/29/19 06:59 06:59 06:59 Intake Total 1183 1958.8 Output Total 900 425 Balance 283 1533.8 Result Diagrams: 05/28/19 01:35 05/26/19 08:12 Additional Labs: Accuchecks 05/28/19 05/28/19 05/27/19 11:12 05:47 20:09 POC Glucose 86 92 174 H 05/27/19 16:16 POC Glucose 149 H Radiology Reviewed by me: Yes Hospitalist ROS - Review of Systems All other systems reviewed; all pertinent +/- noted in HPI/Subj - Medication Medications: Active Medications Generic Name Dose Route Start Last Admin Trade Name Freq PRN Reason Stop Dose Admin Hydrocodone Bitart/Acetaminophen 1 tab 05/23/19 23:53 05/27/19 20:12 [place] 5/325 PO 1 tab Q6H PRN Administration Moderate Pain (4-6) Albuterol/Ipratropium 3 ml 05/24/19 01:00 05/28/19 13:47 Duoneb NEB Not Given [id number] BARBARA Atorvastatin Calcium 20 mg 05/24/19 21:00 05/27/19 20:12 Lipitor PO 20 mg HS BARBARA Administration Budesonide 0.25 mg 05/24/19 06:30 05/28/19 07:56 Pulmicort Neb Solution NEB Not Given BID-RT BARBARA Hydralazine HCl 25 mg 05/24/19 09:00 05/27/19 20:13 Apresoline PO Not Given TID BARBARA Dopamine HCl/Dextrose 250 mls @ 0 mls/hr 05/25/19 14:46 05/27/19 20:11 Dopamine 400 Mg/D5w 250 Ml IVPB 250 mls INF BARBARA Administration Protocol As Directed Isosorbide Mononitrate 30 mg 05/24/19 09:00 05/27/19 07:49 Imdur Er PO 30 mg DAILY [facility] Administration Sertraline HCl 100 mg 05/24/19 09:00 05/27/19 07:49 Zoloft PO 100 mg DAILY [facility]A Administration Sodium Chloride 10 ml 05/24/19 09:00 05/27/19 20:12 Flush - Normal Saline IVF 10 ml Q12HR BARABRA Administration Trazodone HCl 100 mg 05/24/19 21:00 05/27/19 20:12 Desyrel PO 100 mg HS BARBARA Administration Vitamin B Complex/Vit C/Folic Acid 1 tab 05/24/19 09:00 05/27/19 07:49 Nephro-Ramon Tablet PO 1 tab DAILY [facility]BARA Administration - Exam General Appearance: NAD, awake alert Eye: PERRL ENT: normocephalic atraumatic, moist mucosa Neck: supple, symmetric, no lymphadenopathy Heart: no murmur, no gallops, no rubs Respiratory: CTAB, no wheezes, no rales, no ronchi, normal chest expansion, no tachypnea Gastrointestinal: soft, non-tender, no palpable masses, no guarding, no rigidity Extremities: 1+ LE edema Skin: no lesions, no rashes Neurological: cranial nerve grossly intact, no focal deficits Musculoskeletal: generalized weakness Psychiatric: normal affect, normal behavior, A&O x 3 Hosp A/P (1) Acute coronary syndrome Code(s): I24.9 - ACUTE ISCHEMIC HEART DISEASE, UNSPECIFIED Status: Acute (2) Atrial flutter Code(s): I48.92 - UNSPECIFIED ATRIAL FLUTTER Status: Acute (3) Cardiomyopathy Code(s): I42.9 - CARDIOMYOPATHY, UNSPECIFIED Status: Acute (4) Chronic systolic (congestive) heart failure Code(s): I50.22 - CHRONIC SYSTOLIC (CONGESTIVE) HEART FAILURE Status: Acute (5) Elevated troponin Code(s): R79.89 - OTHER SPECIFIED ABNORMAL FINDINGS OF BLOOD CHEMISTRY Status : Acute (6) HTN (hypertension) Code(s): I10 - ESSENTIAL (PRIMARY) HYPERTENSION Status: Acute (7) Moderate mitral regurgitation Code(s): I34.0 - NONRHEUMATIC MITRAL (VALVE) INSUFFICIENCY Status: Acute (8) Pulmonary HTN Code(s): I27.20 - PULMONARY HYPERTENSION, UNSPECIFIED Status: Acute (9) SSS (sick sinus syndrome) Code(s): I49.5 - SICK SINUS SYNDROME Status: Acute (10) Symptomatic bradycardia Code(s): R00.1 - BRADYCARDIA, UNSPECIFIED Status: Acute (11) NSTEMI (non-ST elevated myocardial infarction) Code(s): I21.4 - NON-ST ELEVATION (NSTEMI) MYOCARDIAL INFARCTION Status: Acute (12) Nausea with vomiting, unspecified Code(s): R11.2 - NAUSEA WITH VOMITING, UNSPECIFIED Status: Acute (13) Pneumonia Code(s): J18.9 - PNEUMONIA, UNSPECIFIED ORGANISM Status: Acute (14) SOB (shortness of breath) Code(s): R06.02 - SHORTNESS OF BREATH Status: Acute (15) Chronic systolic heart failure Code(s): I50.22 - CHRONIC SYSTOLIC (CONGESTIVE) HEART FAILURE Status: Chronic (16) DM type 2 (diabetes mellitus, type 2) Status: Chronic (17) ESRD (end stage renal disease) on dialysis Code(s): N18.6 - END STAGE RENAL DISEASE; Z99.2 - DEPENDENCE ON RENAL DIALYSIS Status: Chronic - Plan Plan: intermediate medical care floor cardiology consultation, recommendations appreciated weatherization and housing inspector consultation, recommendations appreciated nephrology consultation, recommendations appreciated S/p CHRIS with cardioversion, 05/28/19 dopamine for symptomatic bradycardia, stop/ wean if able hemodialysis per nephrology blood pressure control blood sugar control continue other home medications as able G.I. prophylaxis DVT prophylaxis replace electrolytes as needed long-term prognosis is guarded
--- NOTE | 2019-05-28 15:23 | PRG ---
DATE OF SERVICE: 05/28/2019 SUBJECTIVE: Patient was seen and examined at bedside and overnight events noted. Patient denies any shortness of breath or chest pain or palpitation. No history of nausea or vomiting or diarrhea or fever or chills or cramps. OBJECTIVE: GENERAL: This is a well-built male, in no apparent distress. VITAL SIGNS: Temperature 97.2. Pulse 95. Respiratory rate 18. Blood pressure 120/59. HEENT: Atraumatic, normocephalic. Oral mucosa is moist NECK: Supple. CARDIOVASCULAR: S1, S2 heard. Rate and rhythm regular. RESPIRATORY: Clear to auscultation. GASTROINTESTINAL: Abdomen is soft. MUSCULOSKELETAL: No tenderness. No edema. DERMATOLOGIC: No skin rash. NEUROLOGIC: Alert and awake and oriented X3. No focal neurologic deficits. Moving all the extremities. PSYCHIATRIC: Mood and affect normal. LABORATORY DATA: Labs not done today. ASSESSMENT AND PLAN: 1. End-stage renal disease. Continue on dialysis as tolerated. 2. Edema, controlled. 3. Hypertension. 4. Anemia. Plan to continue dialysis as tolerated. Job ID: [id number]
[2019-05-28] MEDS: Folic Acid/Vit B Comp W-C PO SCH (15:57)
[2019-05-28] MEDS: hydrALAZINE 25 MG TAB PO SCH ×3 (15:57→21:06)
[2019-05-28] MEDS: Isosorbide Mononitrate (ER) 30 MG TAB PO SCH (15:57)
--- NOTE | 2019-05-28 16:22 | PDOC.CPN ---
- Subjective Date: 05/28/19 Time: 16:22 Interval history: He had an aflutter ablation today. He is doing well. Currently in sinus. No chest pain. BP stable. - Review of Systems General: denies: fever/chills, weight/appetite/sleep changes, night sweats, fatigue Respiratory: denies: cough, congestion, shortness of breath, exercise intolerance Cardiovascular: denies: chest pain, palpitation, edema, paroxysmal nocturnal dyspnea, orthopnea Gastrointestinal: denies: nausea, vomiting, diarrhea, constipation, abd pain, GI bleeding Musculoskeletal: denies: pain, tenderness, stiffness, swelling, arthritis/ arthralgias Neurological: denies: numbness, syncope, seizure, weakness - Objective Allergies/Adverse Reactions: Allergies Allergy/AdvReac Type Severity Reaction Status Date / Time lorazepam [From Ativan] AdvReac HALLUCINATIONS, Verified 05/09/18 21:14 AGITATION Visit Medications: Current Medications Acetaminophen (Tylenol) 650 mg PO Q4H PRN PRN Reason: Headache/Fever/Mild Pain (1-3) Hydrocodone Bitart/Acetaminophen ([place] 5/325) 1 tab PO Q6H PRN PRN Reason: Moderate Pain (4-6) Last Admin: 05/27/19 20:12 Dose: 1 tab Albuterol/Ipratropium (Duoneb) 3 ml NEB [id number] [facility] Last Admin: 05/28/19 13:47 Dose: Not Given Atorvastatin Calcium (Lipitor) 20 mg PO HS [facility] Last Admin: 05/27/19 20:12 Dose: 20 mg Atropine Sulfate (Atropine) 1 mg IVP Q3H PRN PRN Reason: HR<30/min Bisacodyl (Dulcolax) 10 mg [place] DAILYPRN PRN PRN Reason: Constipation Budesonide (Pulmicort Neb Solution) 0.25 mg NEB BID-RT [facility] Last Admin: 05/28/19 07:56 Dose: Not Given Dextrose/Water (Dextrose 50%) 25 gm SLOW IVP PRN PRN PRN Reason: Hypoglycemia Glucagon (Glucagon) 1 mg IM PRN PRN PRN Reason: Hypoglycemia Guaifenesin/Dextromethorphan (Robitussin Dm) 15 ml PO Q4H PRN PRN Reason: Cough Hydralazine HCl (Apresoline) 25 mg PO TID [facility] Last Admin: 05/28/19 15:57 Dose: Not Given Dextrose/Water (D5w) 1,000 mls @ 0 mls/hr IV .Q0M PRN PRN Reason: Hypoglycemia Dopamine HCl/Dextrose (Dopamine 400 Mg/D5w 250 Ml) 250 mls @ 0 mls/hr IVPB INF [facility]; Protocol Last Admin: 05/27/19 20:11 Dose: 250 mls Insulin Human Lispro (Humalog) 0 units SC .MODERATE SLIDING SC PRN PRN Reason: Moderate Correctional Scale Insulin Human Lispro (Humalog) 0 units SC .BEDTIME SLIDING SC PRN PRN Reason: Bedtime Correctional Scale Isosorbide Mononitrate (Imdur Er) 30 mg PO DAILY [facility] Last Admin: 05/28/19 15:57 Dose: Not Given Senna/Docusate Sodium (Senokot S) 2 tab PO BIDPRN PRN PRN Reason: Constipation Sertraline HCl (Zoloft) 100 mg PO DAILY [facility] Last Admin: 05/28/19 15:57 Dose: Not Given Sodium Chloride (Flush - Normal Saline) 10 ml IVF Q12HR [facility] Last Admin: 05/28/19 15:57 Dose: Not Given Sodium Chloride (Flush - Normal Saline) 10 ml IVF PRN PRN PRN Reason: Saline Flush Trazodone HCl (Desyrel) 100 mg PO HS [facility] Last Admin: 05/27/19 20:12 Dose: 100 mg Vitamin B Complex/Vit C/Folic Acid (Nephro-Ramon Tablet) 1 tab PO DAILY [facility] Last Admin: 05/28/19 15:57 Dose: Not Given Vital Signs & Weight: Vital Signs Temp Pulse BP Pulse Ox 05/28/19 15:57 65 05/28/19 12:00 97.2 F L 05/28/19 10:58 97 05/28/19 06:01 131/69 Weight 163 lb 5.8 oz - Physical Exam General: alert & oriented x3 HEENT: mucus membranes moist Neck: supple neck Cardiac: regular rate and rhythm Lungs: clear to auscultation Neuro: grossly intact Abdomen: active bowel sounds Extremities: no edema Skin: clear Musculoskeletal: no pain - Labs Result Diagrams: 05/28/19 01:35 05/26/19 08:12 Troponin/CKMB CK-MB (CK-2) 1.3 ng/mL (0-6.6) 05/23/19 19:14 Troponin I 0.121 ng/mL (< 0.028) H 05/24/19 02:11 - Telemetry Sinus rhythms and dysrhythmias: sinus rhythm - Assessment/Plan Assessment/Plan: 1. Typical atrial flutter, s/p ablation. 2. Symptomatic bradycardia 3. CAD with hx of CABG 4. ESRD with HD 5. Moderate MR 6. HTN PLAN: - Avoid AV julia blocking agents for now. - If bradycardia recurs will be a candidate for permanent pacing.
--- NOTE | 2019-05-28 16:53 | EKG ---
Test Reason : POST ABLATION Blood Pressure : / mmHG Vent. Rate : 064 BPM Atrial Rate : 064 BPM P-R Int : 314 ms QRS Dur : 144 ms QT Int : 480 ms P-R-T Axes : 069 -38 -50 degrees QTc Int : 495 ms Sinus rhythm with 1st degree A-V block Left axis deviation Non-specific intra-ventricular conduction block Inferior infarct (cited on or before 07-JAN-2014) anterior st upsloping elevation, cannot R/O acute SC changes Abnormal ECG When compared with ECG of 23-MAY-2019 18:55, (Unconfirmed) Significant changes have occurred Confirmed by DR. Tricia OSMAN ([id number]) on 05/28/2019 4:52:21 PM Referred By: SYLVIA Confirmed By:DR. Tricia OSMAN
--- NOTE | 2019-05-28 20:05 | ECHO ---
DATE OF PROCEDURE: 05/28/19 REFERRING PHYSICIAN: Dr. Raciel Aleman REASON FOR PROCEDURE: The patient is a 73-year-old man with history of sustained atrial flutter not on anticoagulation prea dmission. Also has low platelet count and end-stage renal disease. He is undergoing CHRIS prior to a pl anned ablation procedure. PROCEDURE: The patient received Propofol by Anesthesia specialist. After adequate level of sedation achieved, a standard transesophageal echocardiogram probe was passed into the esophagus without diff iculty. Patient tolerated the procedure well, no complications noted. RESULTS: Left atrium is moderately enlarged about 4.8 cm in horizontal diameter. The left atrial appendage we ll visualized contains no clots. The left atrial appendage velocities during atrial flutter up to 50 cm per second, which is adequate. Due to contact issues, pulmonary veins were difficult to visualize . Left superior pulmonary veins were well seen only. The mitral valve has mild regurgitation. Intera trial septum is free of defect. Trace tricuspid regurgitation. No aortic or pulmonary valve regurgita tion is noted. Left ventricular systolic function is preserved. Left ventricular hypertrophy noted an d appears to be concentric. Pericardial space without effusion. The aortic valve has three leaflets without stenosis or regurgitation. The visualized portion of ascending and descending aorta without aneurysm or dissection. Adherent atheroma noted in the descending aorta. CONCLUSION: 1. No intracardiac clots. 2. Mild to moderate left atrial enlargement. 3. Mild mitral regurgitation. 4. Preserved LV systolic function. PLAN: Proceed with the ablation.
[2019-05-28] MEDS: traZODone HCl 50 MG TAB PO SCH (21:05)
[2019-05-28] MEDS: HYDROcodone/Acetaminophen 5/325 mg Tablet PO PRN (21:06)
[2019-05-28] MEDS: Atorvastatin Calcium 20 MG TAB PO SCH (21:06)
[2019-05-29] MEDS: Budesonide 0.25 MG/2 ML NEB NEB SCH ×2 (07:58→18:49)
[2019-05-29] MEDS: Isosorbide Mononitrate (ER) 30 MG TAB PO SCH (09:08)
[2019-05-29] MEDS: Folic Acid/Vit B Comp W-C PO SCH (09:08)
[2019-05-29] MEDS: hydrALAZINE 25 MG TAB PO SCH ×3 (09:08→21:35)
--- NOTE | 2019-05-29 15:11 | PDOC.CPN ---
- Subjective Date: 05/29/19 Time: 15:09 Interval history: Doing well. Currently tolerating HD. - Review of Systems General: denies: fever/chills, weight/appetite/sleep changes, night sweats, fatigue Respiratory: denies: cough, congestion, shortness of breath, exercise intolerance Cardiovascular: denies: chest pain, palpitation, edema, paroxysmal nocturnal dyspnea, orthopnea Gastrointestinal: denies: nausea, vomiting, diarrhea, constipation, abd pain, GI bleeding Musculoskeletal: denies: pain, tenderness, stiffness, swelling, arthritis/ arthralgias Neurological: denies: numbness, syncope, seizure, weakness - Objective Allergies/Adverse Reactions: Allergies Allergy/AdvReac Type Severity Reaction Status Date / Time lorazepam [From Ativan] AdvReac HALLUCINATIONS, Verified 05/09/18 21:14 AGITATION Visit Medications: Current Medications Acetaminophen (Tylenol) 650 mg PO Q4H PRN PRN Reason: Headache/Fever/Mild Pain (1-3) Hydrocodone Bitart/Acetaminophen ([place] 5/325) 1 tab PO Q6H PRN PRN Reason: Moderate Pain (4-6) Last Admin: 05/28/19 21:06 Dose: 1 tab Albuterol/Ipratropium (Duoneb) 3 ml NEB [id number] [facility] Last Admin: 05/29/19 13:30 Dose: 3 ml Atorvastatin Calcium (Lipitor) 20 mg PO HS [facility] Last Admin: 05/28/19 21:06 Dose: 20 mg Atropine Sulfate (Atropine) 1 mg IVP Q3H PRN PRN Reason: HR<30/min Bisacodyl (Dulcolax) 10 mg [place] DAILYPRN PRN PRN Reason: Constipation Budesonide (Pulmicort Neb Solution) 0.25 mg NEB BID-RT [facility] Last Admin: 05/29/19 07:58 Dose: 0.25 mg Dextrose/Water (Dextrose 50%) 25 gm SLOW IVP PRN PRN PRN Reason: Hypoglycemia Glucagon (Glucagon) 1 mg IM PRN PRN PRN Reason: Hypoglycemia Guaifenesin/Dextromethorphan (Robitussin Dm) 15 ml PO Q4H PRN PRN Reason: Cough Hydralazine HCl (Apresoline) 25 mg PO TID [facility] Last Admin: 05/29/19 09:08 Dose: 25 mg Dextrose/Water (D5w) 1,000 mls @ 0 mls/hr IV .Q0M PRN PRN Reason: Hypoglycemia Dopamine HCl/Dextrose (Dopamine 400 Mg/D5w 250 Ml) 250 mls @ 0 mls/hr IVPB INF [facility]; Protocol Last Admin: 05/27/19 20:11 Dose: 250 mls Insulin Human Lispro (Humalog) 0 units SC .MODERATE SLIDING SC PRN PRN Reason: Moderate Correctional Scale Insulin Human Lispro (Humalog) 0 units SC .BEDTIME SLIDING SC PRN PRN Reason: Bedtime Correctional Scale Isosorbide Mononitrate (Imdur Er) 30 mg PO DAILY [facility] Last Admin: 05/29/19 09:08 Dose: 30 mg Senna/Docusate Sodium (Senokot S) 2 tab PO BIDPRN PRN PRN Reason: Constipation Sertraline HCl (Zoloft) 100 mg PO DAILY [facility] Last Admin: 05/29/19 09:08 Dose: 100 mg Sodium Chloride (Flush - Normal Saline) 10 ml IVF Q12HR [facility] Last Admin: 05/29/19 09:09 Dose: 10 ml Sodium Chloride (Flush - Normal Saline) 10 ml IVF PRN PRN PRN Reason: Saline Flush Trazodone HCl (Desyrel) 100 mg PO HS [facility] Last Admin: 05/28/19 21:05 Dose: 100 mg Vitamin B Complex/Vit C/Folic Acid (Nephro-Ramon Tablet) 1 tab PO DAILY [facility] Last Admin: 05/29/19 09:08 Dose: 1 tab Vital Signs & Weight: Vital Signs Temp Pulse Resp Pulse Ox 05/29/19 13:30 74 14 95 05/29/19 11:11 97.8 F 05/29/19 09:08 73 05/29/19 07:57 73 16 96 05/29/19 07:48 98 05/29/19 07:11 97.5 F L 05/29/19 03:40 98.4 F Weight 161 lb 13.109 oz - Physical Exam General: no apparent distress HEENT: mucus membranes moist Neck: supple neck Cardiac: regular rate and rhythm Lungs: clear to auscultation Neuro: grossly intact Abdomen: active bowel sounds Extremities: no edema Skin: clear Musculoskeletal: no pain - Labs Result Diagrams: 05/28/19 01:35 05/26/19 08:12 Troponin/CKMB CK-MB (CK-2) 1.3 ng/mL (0-6.6) 05/23/19 19:14 Troponin I 0.121 ng/mL (< 0.028) H 05/24/19 02:11 - Telemetry Sinus rhythms and dysrhythmias: sinus rhythm - Assessment/Plan Assessment/Plan: 1. Typical atrial flutter, s/p ablation. 2. Symptomatic bradycardia 3. CAD with hx of CABG 4. ESRD with HD 5. Moderate MR 6. HTN PLAN: - Avoid AV julia blocking agents for now. - If bradycardia recurs will be a candidate for permanent pacing. - CV stable otherwise. May discharge any time from cardiac perspective.
--- NOTE | 2019-05-29 15:18 | PDOC.HOSPP ---
- Subjective Subjective: Seen and examined. Patient clinically improving. Breathing well on room air. Not on dopamine. Patient going for dialysis today. Patient normally gets dialysis twice per week and he is due per family. Family at bedside, all questions answered in detail, patient and family are happy with plan of care. - Objective Vital Signs & Weight: Vital Signs (12 hours) Temp Pulse Resp Pulse Ox 05/29/19 15:15 98.2 F 05/29/19 13:30 74 14 95 05/29/19 11:11 97.8 F 05/29/19 09:08 73 05/29/19 07:57 73 16 96 05/29/19 07:48 98 05/29/19 07:11 97.5 F L 05/29/19 03:40 98.4 F Weight Weight 161 lb 13.109 oz Most Recent Monitor Data Heart Rate from ECG 71 NIBP 127/71 NIBP BP-Mean 89 Respiration from ECG 12 SpO2 96 I&O: 05/28/19 05/29/19 05/30/19 06:59 06:59 06:59 Intake Total 1958.8 620 Output Total 425 25 Balance 1533.8 595 Result Diagrams: 05/28/19 01:35 05/26/19 08:12 Additional Labs: Accuchecks 05/29/19 05/28/19 05/28/19 05:52 20:02 16:17 POC Glucose 90 199 H 83 Radiology Reviewed by me: Yes Hospitalist ROS - Review of Systems All other systems reviewed; all pertinent +/- noted in HPI/Subj - Medication Medications: Active Medications Generic Name Dose Route Start Last Admin Trade Name Freq PRN Reason Stop Dose Admin Hydrocodone Bitart/Acetaminophen 1 tab 05/23/19 23:53 05/28/19 21:06 [place] 5/325 PO 1 tab Q6H PRN Administration Moderate Pain (4-6) Albuterol/Ipratropium 3 ml 05/24/19 01:00 05/29/19 13:30 Duoneb NEB 3 ml [id number] [facility] Administration Atorvastatin Calcium 20 mg 05/24/19 21:00 05/28/19 21:06 Lipitor PO 20 mg HS [facility] Administration Budesonide 0.25 mg 05/24/19 06:30 05/29/19 07:58 Pulmicort Neb Solution NEB 0.25 mg BID-RT [facility] Administration Hydralazine HCl 25 mg 05/24/19 09:00 05/29/19 09:08 Apresoline PO 25 mg TID [facility] Administration Isosorbide Mononitrate 30 mg 05/24/19 09:00 05/29/19 09:08 Imdur Er PO 30 mg DAILY [facility] Administration Sertraline HCl 100 mg 05/24/19 09:00 05/29/19 09:08 Zoloft PO 100 mg DAILY [facility] Administration Sodium Chloride 10 ml 05/24/19 09:00 05/29/19 09:09 Flush - Normal Saline IVF 10 ml Q12HR [facility] Administration Trazodone HCl 100 mg 05/24/19 21:00 05/28/19 21:05 Desyrel PO 100 mg HS [facility] Administration Vitamin B Complex/Vit C/Folic Acid 1 tab 05/24/19 09:00 05/29/19 09:08 Nephro-Ramon Tablet PO 1 tab DAILY [facility] Administration - Exam General Appearance: NAD Eye: anicteric sclera ENT: normocephalic atraumatic, moist mucosa Neck: supple, symmetric, no lymphadenopathy Heart: no murmur, no gallops, no rubs Respiratory: CTAB, no wheezes, no rales, no ronchi, normal chest expansion, no tachypnea Gastrointestinal: soft, non-tender, no guarding, no rigidity Extremities: 1+ LE edema Skin: no lesions, no rashes Neurological: cranial nerve grossly intact, no focal deficits Musculoskeletal: generalized weakness Psychiatric: normal affect, A&O x 3 Hosp A/P (1) Acute coronary syndrome Code(s): I24.9 - ACUTE ISCHEMIC HEART DISEASE, UNSPECIFIED Status: Acute (2) Atrial flutter Code(s): I48.92 - UNSPECIFIED ATRIAL FLUTTER Status: Acute (3) Cardiomyopathy Code(s): I42.9 - CARDIOMYOPATHY, UNSPECIFIED Status: Acute (4) Chronic systolic (congestive) heart failure Code(s): I50.22 - CHRONIC SYSTOLIC (CONGESTIVE) HEART FAILURE Status: Acute (5) Elevated troponin Code(s): R79.89 - OTHER SPECIFIED ABNORMAL FINDINGS OF BLOOD CHEMISTRY Status : Acute (6) HTN (hypertension) Code(s): I10 - ESSENTIAL (PRIMARY) HYPERTENSION Status: Acute (7) Moderate mitral regurgitation Code(s): I34.0 - NONRHEUMATIC MITRAL (VALVE) INSUFFICIENCY Status: Acute (8) Pulmonary HTN Code(s): I27.20 - PULMONARY HYPERTENSION, UNSPECIFIED Status: Acute (9) SSS (sick sinus syndrome) Code(s): I49.5 - SICK SINUS SYNDROME Status: Acute (10) Symptomatic bradycardia Code(s): R00.1 - BRADYCARDIA, UNSPECIFIED Status: Acute (11) NSTEMI (non-ST elevated myocardial infarction) Code(s): I21.4 - NON-ST ELEVATION (NSTEMI) MYOCARDIAL INFARCTION Status: Acute (12) Nausea with vomiting, unspecified Code(s): R11.2 - NAUSEA WITH VOMITING, UNSPECIFIED Status: Acute (13) Pneumonia Code(s): J18.9 - PNEUMONIA, UNSPECIFIED ORGANISM Status: Acute (14) SOB (shortness of breath) Code(s): R06.02 - SHORTNESS OF BREATH Status: Acute (15) Chronic systolic heart failure Code(s): I50.22 - CHRONIC SYSTOLIC (CONGESTIVE) HEART FAILURE Status: Chronic (16) DM type 2 (diabetes mellitus, type 2) Status: Chronic (17) ESRD (end stage renal disease) on dialysis Code(s): N18.6 - END STAGE RENAL DISEASE; Z99.2 - DEPENDENCE ON RENAL DIALYSIS Status: Chronic - Plan Plan: intermediate medical care floor, stable for Med/ tel cardiology consultation, recommendations appreciated bag filler consultation, recommendations appreciated nephrology consultation, recommendations appreciated PT/ OT evaluation and treatment - May benefit from home with home health vs rehabilitation placement No AV julia blockers per cardiology If develops symptomatic bradycardia in the future, may require pacemaker S/p CHRIS with cardioversion, 05/28/19 dopamine for symptomatic bradycardia, stable off since CHRIS hemodialysis per nephrology planned for TODAY blood pressure control blood sugar control continue other home medications as able G.I. prophylaxis DVT prophylaxis replace electrolytes as needed long-term prognosis is guarded
--- NOTE | 2019-05-29 15:22 | PDOC.EP ---
- Subjective Date: 05/29/19 Time: 15:18 Interval History: Follow up for atrial flutter. Feels well. currently having HD run. No cardiac symptoms after ablation. No pain or bleeding at groin access site - Review of Systems Constitutional: denies: chills, fever, malaise, sweats, weakness, other Respiratory: denies: cough, dry, hemoptysis, pleuritic pain, shortness of breath , SOB with excertion, sputum, wheezing, other Cardiology: denies: chest pain, edema, heart racing, light headedness, paroxysmal noc. dyspnea, orthopnea, palpitations, passing out, pleuritic pain, pressure, swelling, other Gastrointestinal: denies: abdominal pain, constipation, diarrhea, hematochezia, melena, nausea, vomitting, other - Objective Allergies/Adverse Reactions: Allergies Allergy/AdvReac Type Severity Reaction Status Date / Time lorazepam [From Ativan] AdvReac HALLUCINATIONS, Verified 05/09/18 21:14 AGITATION Current Medications Acetaminophen (Tylenol) 650 mg PO Q4H PRN PRN Reason: Headache/Fever/Mild Pain (1-3) Hydrocodone Bitart/Acetaminophen ([place] 5/325) 1 tab PO Q6H PRN PRN Reason: Moderate Pain (4-6) Last Admin: 05/28/19 21:06 Dose: 1 tab Albuterol/Ipratropium (Duoneb) 3 ml NEB [id number] [facility] Last Admin: 05/29/19 13:30 Dose: 3 ml Atorvastatin Calcium (Lipitor) 20 mg PO HS [facility] Last Admin: 05/28/19 21:06 Dose: 20 mg Atropine Sulfate (Atropine) 1 mg IVP Q3H PRN PRN Reason: HR<30/min Bisacodyl (Dulcolax) 10 mg [place] DAILYPRN PRN PRN Reason: Constipation Budesonide (Pulmicort Neb Solution) 0.25 mg NEB BID-RT [facility] Last Admin: 05/29/19 07:58 Dose: 0.25 mg Dextrose/Water (Dextrose 50%) 25 gm SLOW IVP PRN PRN PRN Reason: Hypoglycemia Glucagon (Glucagon) 1 mg IM PRN PRN PRN Reason: Hypoglycemia Guaifenesin/Dextromethorphan (Robitussin Dm) 15 ml PO Q4H PRN PRN Reason: Cough Hydralazine HCl (Apresoline) 25 mg PO TID [facility] Last Admin: 05/29/19 09:08 Dose: 25 mg Dextrose/Water (D5w) 1,000 mls @ 0 mls/hr IV .Q0M PRN PRN Reason: Hypoglycemia Insulin Human Lispro (Humalog) 0 units SC .MODERATE SLIDING SC PRN PRN Reason: Moderate Correctional Scale Insulin Human Lispro (Humalog) 0 units SC .BEDTIME SLIDING SC PRN PRN Reason: Bedtime Correctional Scale Isosorbide Mononitrate (Imdur Er) 30 mg PO DAILY [facility] Last Admin: 05/29/19 09:08 Dose: 30 mg Senna/Docusate Sodium (Senokot S) 2 tab PO BIDPRN PRN PRN Reason: Constipation Sertraline HCl (Zoloft) 100 mg PO DAILY [facility] Last Admin: 05/29/19 09:08 Dose: 100 mg Sodium Chloride (Flush - Normal Saline) 10 ml IVF Q12HR [facility] Last Admin: 05/29/19 09:09 Dose: 10 ml Sodium Chloride (Flush - Normal Saline) 10 ml IVF PRN PRN PRN Reason: Saline Flush Trazodone HCl (Desyrel) 100 mg PO HS [facility] Last Admin: 05/28/19 21:05 Dose: 100 mg Vitamin B Complex/Vit C/Folic Acid (Nephro-Ramon Tablet) 1 tab PO DAILY [facility] Last Admin: 05/29/19 09:08 Dose: 1 tab Vital Signs & Weight: Vital Signs Temp Pulse Resp Pulse Ox 05/29/19 15:15 98.2 F 05/29/19 13:30 74 14 95 05/29/19 11:11 97.8 F 05/29/19 09:08 73 05/29/19 07:57 73 16 96 05/29/19 07:48 98 05/29/19 07:11 97.5 F L 05/29/19 03:40 98.4 F Weight 161 lb 13.109 oz I/O: I/O 05/28/19 05/29/19 05/30/19 06:59 06:59 06:59 Intake Total 1958.8 620 Output Total 425 25 Balance 1533.8 595 - Quality Measures Condition: Atrial Fibrillation/Flutter (hx or current) (low platelet count) - Medication Contraindications No Anticoagulant reason: Medical contraindication - Physical Exam General: alert & oriented x3, appears well, no apparent distress, speech clear, affect appropriate HEENT: mucus membranes moist, normocephaly Neck: supple neck, midline trachea, no JVD/HJR, no masses, no bruit, no lymphadenopathy, no thromegaly Cardiology: regular rate and rhythm, no murmur, regular rate, regular rhythm, PMI nondisplaced Lungs: clear to auscultation, normal breath sounds, no wheeze, rales, rhonchi Neurology: cranial nerve 2-12 intact, grossly intact, sensory function intact Abdomen: unremarkable, active bowel sounds, no pulsations/bruits, no hepatosplenomegaly Extremities: dry, strong pulses, warm - Labs Result Diagrams: 05/28/19 01:35 05/26/19 08:12 - EKG Interpretation EKG shows: Sinus rhythm - Assessment/Plan Assessment/Plan: 1. Typical atrial flutter - slow VR - s/p CTI flutter ablation 2. 1st degree AV block 3. Symptomatic bradycardia -requiring recent + chronotropic support - no bradycardia after ablation. off dopamine. 4. ESRD 5.Recent pneumonia Rhythm stable post ablation. Remains in SR with 1st degree AVB. No OAC given low plt count. Continue ASA 81mg daily upon DC. No left atrial circuits seen during EPS. OK for DC by EP. 6 week clinic follow up will be arranged.
--- NOTE | 2019-05-29 16:31 | PRG ---
DATE OF SERVICE: 05/29/2019 SUBJECTIVE: Patient was seen and examined at bedside and overnight events noted. Patient denies any shortness of breath or chest pain or palpitation. No history of nausea or vomiting or diarrhea or fever or chills or cramps. OBJECTIVE: GENERAL: This is a well-built male, in no apparent distress. VITAL SIGNS: Temperature 98.2, pulse 71, respiratory rate blood pressure 127/71. HEENT: Atraumatic, normocephalic. Oral mucosa is moist NECK: Supple. CARDIOVASCULAR: S1, S2 heard. Rate and rhythm regular. RESPIRATORY: Clear to auscultation. GASTROINTESTINAL: Abdomen is soft. MUSCULOSKELETAL: No tenderness. No edema. DERMATOLOGIC: No skin rash. NEUROLOGIC: Alert and awake and oriented X3. No focal neurologic deficits. Moving all the extremities. PSYCHIATRIC: Mood and affect normal. LABORATORY DATA: Not done today. ASSESSMENT AND PLAN: 1. End-stage renal disease. Continue dialysis as tolerated, Mondays and Fridays. 2. Edema, controlled. 3. Hypertension. 4. Anemia of chronic disease. PLAN: Plan to continue on dialysis as tolerated. Job ID: [id number]
[2019-05-29] MEDS: traZODone HCl 50 MG TAB PO SCH (21:35)
[2019-05-29] MEDS: Atorvastatin Calcium 20 MG TAB PO SCH (21:35)
[2019-05-30 02:16] LABS: Hemoglobin 11.7 g/dL (14.0-18.0); Platelet Count 75 thou/uL (130-400)
[2019-05-30] MEDS: Budesonide 0.25 MG/2 ML NEB NEB SCH (07:55)
[2019-05-30] MEDS: hydrALAZINE 25 MG TAB PO SCH (08:42)
[2019-05-30] MEDS: Folic Acid/Vit B Comp W-C PO SCH (08:42)
[2019-05-30] MEDS: Isosorbide Mononitrate (ER) 30 MG TAB PO SCH (08:42)
[2019-05-30] MEDS ORDERED: Aspirin 81 mg Enteric Coated Tablet PO SCH (09:00)
[2019-05-30 11:35] VITALS: BP 141/78; TEMP 97.5
--- NOTE | 2019-05-30 14:54 | PRG ---
DATE OF SERVICE: 05/30/2019 SUBJECTIVE: Patient was seen and examined at bedside and overnight events noted. Patient denies any shortness of breath or chest pain or palpitation. No history of nausea or vomiting or diarrhea or fever or chills or cramps. OBJECTIVE: GENERAL: This is a well-built male, in no apparent distress. VITAL SIGNS: Temperature 97.5. Heart rate 83. Respiratory rate 18. Blood pressure 141/78. HEENT: Atraumatic, normocephalic. Oral mucosa is moist NECK: Supple. CARDIOVASCULAR: S1, S2 heard. Rate and rhythm regular. RESPIRATORY: Clear to auscultation. GASTROINTESTINAL: Abdomen is soft. MUSCULOSKELETAL: No tenderness. No edema. DERMATOLOGIC: No skin rash. NEUROLOGIC: Alert and awake and oriented X3. No focal neurologic deficits. Moving all the extremities. PSYCHIATRIC: Mood and affect normal. LABORATORY DATA: Not done today. ASSESSMENT AND PLAN: 1. End-stage renal disease. Continue dialysis as tolerated. 2. Edema, controlled. 3. Hypertension. 4. Anemia. Plan to continue dialysis as tolerated. Job ID: [id number]
--- NOTE | 2019-05-30 20:18 | DIS ---
DATE OF ADMISSION: 05/23/2019 DATE OF DISCHARGE: 05/30/2019 REASON FOR HOSPITALIZATION: Atrial flutter with slow ventricular response. SIGNIFICANT FINDINGS: The patient was found to have symptomatic bradycardia with an atrial fibrillation rate and he required intervention. PROCEDURES PERFORMED AND TREATMENTS RENDERED: The patient underwent transesophageal echocardiogram on 05/28/2019, please see full operative report from Dr. Mathew. The patient tolerated the procedure well without intraoperative complications. There were no identifiable cardiac clots and the patient was recommended safe for ablation. The patient then underwent electrophysiology study with radiofrequency ablation by Dr. Mathew 05/28/2019. The patient tolerated this procedure well and atrial fibrillation was converted to sinus rhythm. CONDITION ON DISCHARGE: Stable. SPECIFIC INSTRUCTIONS FOR THE PATIENT/FAMILY: 1. The patient is recommended to take all medications as directed, to be re-evaluated by primary care physician, Cardiology, and all other specialists in the upcoming weeks. 2. The patient is recommended to follow up with primary care physician in the next 5 to 7 days-or return to acute care hospital immediately for re-evaluation. 3. The patient is recommended to follow up with regularly scheduled hemodialysis on a Saturday, Saturday regimen as he has been doing in the outpatient setting-or return to acute care hospital immediately if unable to get dialysis. 4. The patient is recommended to follow up with General Cardiology in the next 1 to 2 weeks-or return to acute care hospital immediately if unable to be seen. 5. The patient is recommended to follow up with commodity lead specialist, Dr. Mathew in the next 3-4 weeks-or return to acute care hospital immediately if unable to be seen. 6. The patient is recommended to return to acute care hospital immediately if signs or symptoms return, worsen, or any other new symptoms occur. DISCHARGE MEDICATIONS: 1. Atorvastatin 20 mg one tablet p.o. at bedtime. 2. Trazodone 100 mg one tablet p.o. at bedtime. 3. Tramadol 50 mg one tablet p.o. q.8 hours p.r.n. pain. 4. Isosorbide mononitrate (Imdur) 30 mg one tablet p.o. daily. 5. Folic acid/vitamin-B complex and C one tablet p.o. daily. 6. Budesonide 0.25 mg nebulizer inhalation b.i.d. 7. Hydralazine 25 mg one tablet p.o. t.i.d. 8. Sertraline 100 mg one tablet p.o. daily. HOSPITAL COURSE: Mr. Gordon is a very pleasant 73-year-old gentleman with past medical history of end-stage renal disease, on hemodialysis; atrial fibrillation, hypertension, hyperlipidemia, coronary artery disease, cardiomyopathy, and osteoarthritis, who presented to [facility] on 05/24/2019. Please see full history and physical for details. The patient was seen and evaluated by Cardiology and Nephrology-please see full consultation notes and progress notes for details. The patient was found to have symptomatic bradycardia with an atrial fibrillation rate. The patient required admission to the intermediate medical care floor and he was placed on a dopamine drip for heart rate support. Pulley Maintainer specialist was called to evaluate the patient, please see full consultation note from Dr. Mathew on 05/25/2019, for details. The patient had hemodialysis appropriately per mud worker and renal function remains stable at his baseline, hemodialysis dependent. Dr. Mathew recommending EP study on 05/28/2019-please see full operative report for details. The patient underwent a transesophageal echocardiogram which was negative for intracardiac thrombus and the patient was recommended safe for EP study with cardioversion. The patient underwent ablation therapy by Dr. Mathew-please see full operative report shortly after echocardiogram for full details. Ablation was performed and considered successful. The patient was discontinued of dopamine drip and returned to the intermediate medical care floor for close management. The patient remained off dopamine throughout the rest of his hospitalization. The patient then underwent hemodialysis on 05/29/2019, and was in stable condition with renal function. The patient breathing well on room air. I evaluated him on 05/30/2019. The patient has been recommended safe for discharge by Nephrology, General Cardiology, and electrophysiology specialist with close followup in the outpatient setting. Specialists selecting patient's medications prior to discharge. The patient is recommended to stop oral anticoagulation use as he is currently not in atrial fibrillation and he will have followup in the outpatient setting for this. All specialists recommending the patient safe for discharge on 05/30/2019, with close followup in the outpatient setting. The patient is recommended to follow up with primary care physician in the next 5 to 7 days. The patient is recommended to follow up with General Cardiology and electrophysiology specialist in the upcoming weeks. The patient is recommended to follow up with Nephrology for dialysis on his typical Saturday/Saturday schedule and mud worker in the outpatient clinic in the upcoming weeks. TIME SPENT: Greater than 37 minutes spent coordinating care and discharge process for this patient. Job ID: [id number]
== END 2019-05-30 14:05 | disposition home health service (06) | DRG 273 ==
LOC: ERS 16:36 → ERHOLD 21:02 → IMCU/EMU 05-24 01:57 → 2NO 05-29 20:20
PROVIDERS: ADMIT Internal Medicine; ATTEND Internal Medicine
PROC: 5A1D70Z Performance of Urinary Filtration, Intermittent, Less than 6 Hours Per Day (ICD-10-PCS; 2019-05-23)
PROC: B24BZZ4 Ultrasonography of Heart with Aorta, Transesophageal (ICD-10-PCS; principal; 2019-05-28)
PROC: 02583ZZ Destruction of Conduction Mechanism, Percutaneous Approach (ICD-10-PCS; 2019-05-28)
PROC: 02K83ZZ Map Conduction Mechanism, Percutaneous Approach (ICD-10-PCS; 2019-05-28)
PROC: 4A023FZ Measurement of Cardiac Rhythm, Percutaneous Approach (ICD-10-PCS; 2019-05-28)
PROC: 4A0234Z Measurement of Cardiac Electrical Activity, Percutaneous Approach (ICD-10-PCS; 2019-05-28)
DX: I48.92 Unspecified atrial flutter (principal); N18.6 End stage renal disease; I21.4 Non-ST elevation (NSTEMI) myocardial infarction; I13.2 Hypertensive heart and chronic kidney disease with heart failure and with stage 5 chronic kidney disease, or end stage renal disease; I24.9 Acute ischemic heart disease, unspecified; I50.22 Chronic systolic (congestive) heart failure; Z99.2 Dependence on renal dialysis; E11.22 Type 2 diabetes mellitus with diabetic chronic kidney disease; Z95.1 Presence of aortocoronary bypass graft; E78.5 Hyperlipidemia, unspecified; Z79.899 Other long term (current) drug therapy; Z88.8 Allergy status to other drugs, medicaments and biological substances; Z79.891 Long term (current) use of opiate analgesic; I34.0 Nonrheumatic mitral (valve) insufficiency; I25.10 Atherosclerotic heart disease of native coronary artery without angina pectoris; I49.5 Sick sinus syndrome; I27.20 Pulmonary hypertension, unspecified; D64.9 Anemia, unspecified; I42.9 Cardiomyopathy, unspecified; I44.0 Atrioventricular block, first degree
CPT/HCPCS: 36415; 36416; 71045; 76942; 80048; 80053; 82553; 82805; 83735; 83880; 84443; 84484; 85014; 85018; 85025; 85049; 85610; 85730; 86706; 87340; 90935; 93005; 93010; 93306; 93312; 93613; 93621; 93623; 93653; 94640; 96361; 96365; 96366; 96367; 96375; C1730; C1732; C1769; G0257; J0461; J1250; J1265; J1644; J2250; J2370; J2405; J2704; J3010; J7620; J7626

== ENCOUNTER 2019-07-13 20:59 | Observation (INO) | payer MEDICARE, MEDICAID ==
--- NOTE | 2019-07-13 22:04 | CT ---
CT BRAIN WITHOUT CONTRAST: HISTORY:Fall. No loss of consciousness COMPARISON:04/27/2015 FINDINGS: There are foci of decreased attenuation in the periventricular white matter, consistent with chronic small vessel ischemic disease. Changes of cortical atrophy are again seen. A old lacunar infarction is seen in the right cerebellar hemisphere. No evidence of acute infarct, hemorrhage, midline shift or abnormal extra-axial fluid collections is seen. The ventricular size is appropriate and the basilar cisterns are patent. The bony calvarium is intact. There is mucosal disease in the paranasal sinuses. IMPRESSION: No CT evidence of acute intracranial process.
[2019-07-13 22:11] LABS: Hemoglobin 13.2 g/dL (14.0-18.0); Mean Corpuscular HGB CONC 34.7 g/dL (32.0-36.0); Mean Corpuscular Hemoglobin 30.9 pg (27.0-31.0); Mean Corpuscular Volume 88.9 fL (78.0-98.0); RBC Distribution Width 13.4 % (11.5-14.5); Red Blood Cell (RBC) Count 4.27 mill/uL (4.70-6.10)
[2019-07-13 22:25] LABS: #Basophils 0.1 thou/uL (0.0-0.2); #Eosinphils 0.1 thou/uL (0.0-0.7); #Lymphocytes 1.3 thou/uL (1.20-3.40); #Monocytes 0.6 thou/uL (0.11-0.59); #Neutrophils 3.6 thou/uL (1.40-6.50); %Basophils 1.2 % (0.0-1.0); %Eosinophils 2.2 % (0.0-10.0); %Monocytes 9.9 % (0.0-10.0); %Neutrophils 63.7 % (42.0-75.0); Mean Platelet Volume 9.2 fL (7.4-10.4); Platelet Count 92 thou/uL (130-400); Platelet Morphology Comment Appears Decreased; White Blood Cell (WBC) Count 5.6 thou/uL (4.8-10.8)
[2019-07-13 22:26] LABS: ALT (SGPT) 21 U/L (8-55); AST (SGOT) 21 U/L (5-34); Albumin 4.1 g/dL (3.4-4.8); Alkaline Phosphatase 101 U/L (40-110); Anion Gap 12 mmol/L (10-20); BUN (Urea Nitrogen) 21 mg/dL (8.4-25.7); Bilirubin, Total 0.4 mg/dL (0.2-1.2); CK (CPK) 52 U/L (30-200); Calc. Creatinine Clearance 0 mL/min (70-130); Calcium 9.6 mg/dL (7.8-10.44); Carbon Dioxide 34 mmol/L (23-31); Chloride 96 mmol/L (98-107); Estimated GFR-MDRD 17; Globulin 3.4 g/dL (2.4-3.5); Glucose 135 mg/dL (83-110); Potassium 3.3 mmol/L (3.5-5.1); Protein, Total 7.5 g/dL (5.8-8.1); Sodium 139 mmol/L (136-145)
[2019-07-13 22:40] LABS: CKMB 1.6 ng/mL (0-6.6)
[2019-07-14 01:20] LABS: Troponin I 0.173 ng/mL (< 0.028)
[2019-07-14] MEDS ORDERED: traZODone HCl 50 MG TAB PO PRN (04:29)
[2019-07-14 05:10] LABS: Troponin I 0.228 ng/mL (< 0.028)
[2019-07-14] MEDS ORDERED: Zolpidem Tartrate 5 MG TAB PO PRN ×2 (08:17→08:26)
[2019-07-14] MEDS ORDERED: Ondansetron ODT 4 MG TAB PO PRN ×2 (08:17→08:26)
[2019-07-14] MEDS ORDERED: Dextrose 50% Abboject 50 ML SYRINGE SLOW IVP PRN ×2 (08:17→08:26)
[2019-07-14] MEDS ORDERED: Dextrose 5% in Water 1,000 ML IV PRN ×2 (08:17→08:26)
[2019-07-14] MEDS ORDERED: HumaLOG 300 UNITS/3 ML VIAL SC PRN ×2 (08:17→08:26)
[2019-07-14] MEDS ORDERED: Acetaminophen 325 MG TAB PO PRN ×2 (08:17→08:26)
[2019-07-14] MEDS ORDERED: Aspirin 81 mg Enteric Coated Tablet PO SCH (09:00)
--- NOTE | 2019-07-14 09:38 | HP ---
PRIMARY CARE PROVIDER: Nicola Small MD HISTORY OF PRESENT ILLNESS: He was referred to the Hospitalist Service by [facility]. The patient stated he did not feel well after dialysis yesterday. He has had some dizziness walking in his house. He fell, could not get up. His relates that he was not lucid for about 15 minutes. No injury noted. He has had some generalized weakness. No focal weakness. PAST MEDICAL HISTORY: Pertinent for: 1. End-stage renal disease for 3 years. 2. Diabetes mellitus, type 2. 3. Coronary artery disease with coronary artery bypass graft in 2005. 4. Hypertension. 5. Asthma/COPD. PAST SURGICAL HISTORY: In addition to the coronary artery bypass graft: 1. An AV shunt in his left arm. 2. Exploratory laparotomy for bowel obstruction. 3. Right knee surgery. 4. He has also had a recent ablation for atrial fibrillation/flutter. CURRENT MEDICATIONS: 1. Trazodone 100 mg at bedtime. 2. Tramadol 50 mg q.8 h. p.r.n. 3. Hydralazine 25 mg p.o. t.i.d. 4. Zoloft 100 mg a day. 5. Imdur 30 mg a day. 6. Budesonide 0.25 mg nebulizer b.i.d. 7. Lipitor 20 mg a day. These have yet to be confirmed on his discharge from the hospital on 05/30/2019, that is for his medications. SOCIAL HISTORY: . Full code status. 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 Quit smoking, supposedly earlier this year. No alcohol or tobacco currently. ALLERGIES: TO LORAZEPAM. FAMILY HISTORY: Mother at 25 from a gunshot wound. Father in his 30s of a stab wound. REVIEW OF SYSTEMS: GENERAL: Some malaise. No fever or chills. Otherwise, see present illness. EYES: Blurry vision. He has poor vision in his right eye. EARS, NOSE, AND THROAT: No ear pain or drainage. No nasal bleeding. No trouble swallowing. CARDIAC: No chest pain, orthopnea, or paroxysmal nocturnal dyspnea. RESPIRATION: No cough, wheezing, or asthma. GASTROINTESTINAL: No nausea, vomiting, diarrhea, or constipation. GENITOURINARY: No hematuria, dysuria, or nocturia. MUSCULOSKELETAL: No pain or swelling in his arms or legs. NEUROLOGICAL: No history of stroke, seizures, or focal weakness. PSYCHIATRIC: No anxiety or depression. HEMATOLOGIC/LYMPHATIC: No tender or swollen lymph nodes in axilla, inguinal, or cervical areas. SKIN: No bruising, bleeding, or rash. PHYSICAL EXAMINATION: VITAL SIGNS: Blood pressure 156/73, temperature 97.8, pulse 67, respirations 20, and room air saturation 97. GENERAL: Alert, oriented, cooperative, and pleasant gentleman. at bedside. HEAD, EYES, EARS, NOSE, AND THROAT: Extraocular movements are intact. Pupils are reactive. Sclerae are white. Tympanic membranes are clear. Nose is clear. Oral mucous membranes are moist. NECK: No jugular venous distention, adenopathy, or thyromegaly. CHEST: Clear to auscultation and percussion. HEART: Regular rate and rhythm. First and second heart sounds are clear. There are no murmurs or gallops. ABDOMEN: Soft. Bowel sounds are normal. There is no hepatosplenomegaly, masses, or bruit. EXTREMITIES: No cyanosis, clubbing, or edema. PULSES: Carotid, radial, and femoral pulses intact. Pedal pulses diminished bilaterally. SKIN: Warm and dry without bruises or rash. HEMATOLOGIC/LYMPHATICS: No tender or swollen lymph nodes in the axilla, inguinal, or cervical areas. NEUROLOGIC: Cranial nerves 2 through 12 are intact. Moves all extremities. Deep tendon reflexes symmetric. IMAGING STUDIES: No chest x-ray is presented. Brain CT, personally reviewed, no acute intracranial abnormality. EKG, regular sinus rhythm, first-degree AV block, nonspecific interventricular block, reviewed by me. LABORATORY DATA: White count 5.6, hemoglobin 13.2, and platelet count 92,000. Comprehensive metabolic profile: Sodium 139, potassium 3.3, CO2 of 34, BUN 21, and creatinine 4.16. Liver function tests normal. Troponin 0.164, 0.173, and 0.228, these are consistent with numbers done in April of last year. ADMITTING DIAGNOSES: 1. Syncope. 2. End-stage renal disease, on hemodialysis. 3. Coronary artery disease. 4. Diabetes mellitus, type 2. 5. Hypertension. PLAN: 1. Monitor in hospital. 2. Prolactin level was been ordered. 3. Carotid ultrasounds will be ordered. Job ID: [id number]
--- NOTE | 2019-07-14 12:22 | ULT ---
BILATERAL CAROTID DUPLEX ULTRASOUND: Date: 07/14/2019 HISTORY: Syncope. FINDINGS: Real-time color Doppler evaluation of the right and left carotid systems was performed. On the right side, peak systolic velocities of the common carotid were 77 cm/second. Internal carotid velocities were 63 cm/second and external carotid velocities were 47 cm/second. On the left side, distal left common carotid velocities were elevated at 178 cm/second. The internal carotid velocities were 58 cm/second and external carotid velocities were 93 cm/second. Vertebral flow is antegrade on the left. On the right side, there is somewhat bidirectional flow, but there does appear to be some reversal of flow. Plaque formation is seen bilaterally. It is more prominent on the left side. IMPRESSION: 1. No evidence of hemodynamically significant stenosis of either internal carotid artery by NASCET c lisette. 2. Prominent calcified plaque formation within the mid to distal left common carotid artery with robert e moderately elevated velocities which would suggest some mild to moderate stenosis. 3. Antegrade left vertebral flow. On the right side, there is some retrograde flow demonstrated, alt chaz some of it appears to be bidirectional. This would raise the possibility of some underlying abby nosis of the right innominate. POS: [facility]
--- NOTE | 2019-07-14 13:29 | PDOC.EVN ---
Event Note - Event Note Event Note: carotid US suggests mild to moderate stenosis in intracranial arteries- suspect TIA, strart asa 325 and lipitor 49 daily. lipid profile ordered
[2019-07-14 14:21] LABS: Cardiac Risk 2.9 (Less than 4.5)
[2019-07-14] MEDS ORDERED: Atorvastatin Calcium 40 MG TAB PO SCH (21:00)
--- NOTE | 2019-07-14 23:54 | CON ---
DATE OF CONSULTATION: 07/14/2019 CONSULTING PHYSICIAN: Dr. Nicholson. REASON FOR CONSULTATION: End-stage renal disease evaluation. REASON FOR ADMISSION: Syncope. HISTORY OF PRESENT ILLNESS: A 74-year-old male with history of end-stage renal disease, type 2 diabetes, coronary artery disease, came to the hospital with not feeling well. He had dialysis on Saturday and has had feeling bad and was brought to the hospital. He is feeling better today. No fever or chills. No nausea or vomiting. PAST MEDICAL HISTORY: Positive for end-stage renal disease, type 2 diabetes, coronary artery disease, hypertension, asthma, and COPD. PAST SURGICAL HISTORY: AV shunt placement, laparotomy, right knee surgery. HOME MEDICATIONS: Reviewed. ALLERGIES: TO LORAZEPAM. SOCIAL HISTORY: No smoking, alcohol, or illicit drug abuse. FAMILY HISTORY: No history of kidney disease. REVIEW OF SYSTEMS: CONSTITUTIONAL: Negative for weight loss or gain, ability to conduct usual activities. SKIN: Negative for rash, itching. EYES: Negative for double vision, pain. ENT/MOUTH: Negative for nose bleeding, neck stiffness, pain, tenderness. CARDIOVASCULAR: Negative for palpitations, dyspnea on exertion, orthopnea. RESPIRATORY: Negative for shortness of breath, wheezing, cough, hemoptysis, fever or night sweats. GASTROINTESTINAL: Negative for poor appetite, abdominal pain, heartburn, nausea, vomiting, constipation, or diarrhea. GENITOURINARY: Negative for urgency, frequency, dysuria, nocturia. MUSCULOSKELETAL: Negative for pain, swelling. NEUROLOGIC/PSYCHIATRIC: Negative for anxiety, depression. ALLERGY/IMMUNOLOGIC: Negative for skin rash, bleeding tendency. PHYSICAL EXAMINATION: GENERAL: This is a well-built male, in no apparent distress.. VITAL SIGNS: Temperature 97.9, pulse 69, respiratory rate 14, blood pressure 134/69. HEENT: Atraumatic, normocephalic. Oral mucosa moist. NECK: Supple. CV: S1, S2. Regular rate and rhythm. RESPIRATORY: Clear. GI: Abdomen is soft MUSCULOSKELETAL: 1+ edema. DERMATOLOGIC: No skin rash. NEUROLOGIC: Alert, awake, and oriented x3. PSYCHIATRIC: Normal mood and affect. LABORATORY DATA: Hemoglobin is 13.2. Potassium is 3.3, BUN is 21, creatinine is 4.1. ASSESSMENT AND PLAN: 1. End-stage renal disease, currently on hemodialysis. 2. Edema. 3. Hypertension. 4. Chronic anemia. 5. Syncope per primary team. 6. Carotid stenosis. Plan is to continue on dialysis Mondays and Fridays. No acute indication for dialysis. We will follow. Thank you for the consult. Job ID: [id number]
[2019-07-15] MEDS ORDERED: Aspirin 325 MG TAB PO SCH (09:00)
--- NOTE | 2019-07-15 11:24 | PRG ---
DATE OF SERVICE: 07/15/2019 SUBJECTIVE: Patient was seen and examined at bedside and overnight events noted. Patient denies any shortness of breath or chest pain or palpitation. No history of nausea or vomiting or diarrhea or fever or chills or cramps. OBJECTIVE: GENERAL: This is a well-built male, in no apparent distress. VITAL SIGNS: Temperature 98.0. Heart rate 64. Respiratory rate . Blood pressure 168/85. HEENT: Atraumatic, normocephalic. Oral mucosa is moist NECK: Supple. CARDIOVASCULAR: S1, S2 heard. Rate and rhythm regular. RESPIRATORY: Clear to auscultation. GASTROINTESTINAL: Abdomen is soft. MUSCULOSKELETAL: No tenderness. DERMATOLOGIC: No skin rash. NEUROLOGIC: Alert and awake and oriented X3. No focal neurologic deficits. Moving all the extremities. PSYCHIATRIC: Mood and affect normal. LABORATORY DATA: Not done today. ASSESSMENT AND PLAN: 1. End-stage renal disease. Continue hemodialysis, Mondays and Fridays. 2. Edema, we will remove fluid. 3. Chronic anemia. 4. Carotid stenosis. 5. Hypertension. Continue dialysis on Mondays and Fridays. Job ID: [id number]
[2019-07-15] MEDS ORDERED: Lidocaine 1% w/Epinephrine 1:100K 20 ML VIAL ONE (12:50)
[2019-07-15 14:24] VITALS: BP 157/74; TEMP 97.6
--- NOTE | 2019-07-15 15:50 | OP ---
DATE OF PROCEDURE: 07/15/2019 PROCEDURE PERFORMED: LINQ recorder implant. REASON FOR PROCEDURE: Mr. Gordon is a 74-year-old man with history of atrial flutter, prior ablation, who presented with an episode of syncopal spell. He has mild bradycardia on monitoring with continued sinus rhythm. He is here for a LINQ recorder for future arrhythmia monitoring. DESCRIPTION OF PROCEDURE: The left precordial area was prepped and draped and anesthetized using subcutaneous lidocaine. On the 4th intercostal space, an incision was made with a what3words tool kit. The LINQ recorder was inserted. The patient tolerated the procedure well. No complications noted. Model number is LINQ11, serial number is [id number]. CONCLUSION: Successful LINQ recorder implant. PLAN: Continue monitoring. Job ID: [id number]
[2019-07-15 16:05] VITALS: BMI 19.0
[2019-07-15] MEDS ORDERED: Atorvastatin Calcium 10 MG TAB PO SCH (21:00)
--- NOTE | 2019-07-15 23:43 | DIS ---
DATE OF ADMISSION: 07/13/2019 DATE OF DISCHARGE: 07/15/2019 DISCHARGE DISPOSITION: Home. FOLLOWUP: 1. Follow up with primary care physician, Dr. Nicola Small in 1 week. 2. Follow up with Cardiology, Dr. Hector Brink in 1 week. 3. Follow up with Electrophysiology, Dr. Mathew. The patient was seen and examined on the day of discharge. Denies any new complaints. No chest pain, shortness of breath, or palpitations reported. DISCHARGE MEDICATIONS: 1. Aspirin 81 mg daily. 2. Lipitor 20 mg nightly. 3. Zoloft 100 mg daily. 4. Trazodone 100 mg nightly. 5. Tramadol as needed. 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 Mathew. INPATIENT PROCEDURES: The patient underwent LINQ recorder placement by Dr. Mathew. BRIEF HOSPITAL COURSE: The patient is a 74-year-old male with atrial flutter, status post ablation, presented to the hospital after a syncopal episode. He was monitored on the telemetry unit. His telemetry monitoring showed mild intermittent bradycardia. He was evaluated by Electrophysiology, and a LINQ recorder was placed. The patient underwent hemodialysis per Nephrology. DIAGNOSTIC TESTS: CT scan of the brain was negative for acute findings. Carotid Doppler showed prominent calcified plaque formation within the mid to distal left common carotid artery with some moderately elevated velocities, suggesting [id number] stenosis. He also had some retrograde flow on the right side that could indicate underlying stenosis of the right innominate. FINAL DIAGNOSES: 1. Syncopal episode, suspected cardiogenic, status post LINQ recorder placement. 2. History of atrial flutter, status post ablation in the past. 3. Hypokalemia. 4. Coronary artery disease. 5. Diabetes mellitus type 2. 6. Hypertension. 7. Type 2 myocardial infarction present on admission. 8. Anemia due to renal insufficiency. 9. Carotid stenosis. The patient will benefit from an outpatient CT angiogram of the neck. Primary care physician advised to follow. 10. The patient understands the above plan of care. Job ID: [id number]
--- NOTE | 2019-07-16 07:24 | CON ---
DATE OF CONSULTATION: 07/15/2019 This is Sue Naranjo PA-C, dictated for Kahlil Mathew MD. REASON FOR CONSULTATION: Syncope and collapse. PHYSICIAN CONSULTED: Kahlil Mathew MD HISTORY OF PRESENT ILLNESS: Mr. Gordon is a 74-year-old gentleman, recently referred to our service. He was admitted to [facility] for syncopal episode. He had been at dialysis earlier that day and felt poorly when he was released. He went home, made a small amount of food, and then was asleep. His then reports that he was trying to walk into the room when he collapsed down to his knees and then onto the floor lying down. He was unresponsive, but did have some slurred speech prior to collapsing. She called 911 and he was brought to the hospital for further evaluation. Now, he is feeling better. He has been on telemetry for monitoring. He has had some generalized weakness, but no focal weakness has been seen. Approximately 6 weeks ago, he had been hospitalized and was found to have typical atrial flutter, which was ablated in early May. Carotid ultrasound has been performed, where some bilateral plaque formation was seen, more prominently on the left, but no hemodynamically significant stenosis was seen. The calcified plaque formation within the [id number] left common carotid did show some moderately elevated velocities, designating [id number] stenosis. Mr. Gordon is currently quite tired. He is usually sleepy during the day. He denies any heart racing, palpitations, chest pain, pressure, repeat syncope, or collapse since being admitted. REVIEW OF SYSTEMS: A 12-point review of systems was negative except that listed above in HPI. PAST MEDICAL HISTORY: 1. Typical atrial flutter with slow ventricular response status post flutter ablation on 05/29/2019. 2. Coronary artery disease status post bypass grafting x2 vessels in 2005. 3. End-stage renal disease with left upper arm AV fistula, on dialysis Saturday, Saturday, and Saturday. 4. Rectal bleed. 5. Pneumonia. 6. Peptic ulcer disease. 7. Small-bowel obstruction. ALLERGIES: LORAZEPAM. HOME MEDICATIONS: 1. Zoloft 100 mg daily. 2. Lipitor 20 mg nightly. 3. Trazodone 100 mg nightly. 4. Ultram 50 mg q.8 h. p.r.n. FAMILY HISTORY: Mother at 25 from a gunshot wound. Father in his 30s from a stab wound. SOCIAL HISTORY: . Full code. 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 Quit smoking earlier this year. No alcohol, tobacco, or illicit drug use currently. OBJECTIVE: VITAL SIGNS: Temperature 98 degrees Fahrenheit, pulse 57, blood pressure 171/78, respirations 22, and oxygen is 97% on room air. GENERAL: The patient is lethargic, resting comfortably. He is in no apparent distress on exam. HEENT: He has poor dentition. NECK: Supple without jugular venous distention. There is no lymphadenopathy. Carotids are without bruit bilaterally. LUNGS: His respirations are even and unlabored with good bilateral excursion. Lungs are clear to auscultation without wheezes, crackles, or rhonchi. HEART: Rate is irregularly irregular with crisp S1 and S2. Slightly bradycardic. PMI is nondisplaced. ABDOMEN: Soft and nontender without palpable masses. Hepatojugular reflux is negative. Positive bowel sounds are noted throughout. EXTREMITIES: Gaunt. There is no clubbing, cyanosis, or edema. He does have an AV fistula in the left upper extremity. NEUROLOGIC: Grossly intact and nonfocal. Gait was not assessed. DATABASE: Hematology was reviewed and unremarkable. Chemistry from 07/13/2019, reveals potassium 3.3, creatinine 4.16. Liver enzymes within normal limits. BNP 516. Telemetry and EKG show sinus bradycardia, no significant pauses, no correlation of symptoms with his current mild bradycardia. Echocardiogram reveals an ejection fraction of 40% to 45%, performed on 05/24/2019 with moderate TR and moderate MR. IMPRESSION: 1. Syncope and collapse of unknown etiology. 2. End-stage renal disease, requiring hemodialysis. 3. History of typical atrial flutter status post cavotricuspid isthmus flutter ablation approximately 6 weeks ago, maintaining sinus rhythm without evidence of recurrence. 4. Bradycardia. 5. Anemia of chronic disease. 6. Carotid stenosis. PLAN AND RECOMMENDATIONS: I had a long discussion with Mr. Gordon and his regarding syncope and collapse and possible etiologies. At this point, he has had a recent echocardiogram that shows only mild valvular disease and is likely not a significant contributing factor to his recent syncopal episode. He has not had any documented recurrences of his atrial flutter, although during his recent electrophysiology study, he was found to have abnormal AV julia function with AV Wenckebach of approximately 590 milliseconds. He remains bradycardic on his monitors, though no pauses of over 3 seconds or correlation with symptoms have been seen since he was admitted and being monitored. In light of his syncope and collapse and also history of atrial arrhythmias and tendency for bradycardia with abnormal AV julia function, my recommendation moving forward is for an implantable loop recorder for long-term monitoring. Anticipate if symptomatic bradycardia is captured or pauses, we will need to discuss permanent pacing therapies with him. I discussed the risks, benefits, and alternatives. The patient and his voiced understanding and both wished to proceed with implantable loop recorder, which will be performed later today. He may be discharged home from electrophysiology perspective immediately following a loop recorder. We will see him back in clinic in 2 weeks for a wound check. Thank you for allowing me to participate in the care of this patient. Job ID: [id number]
[2019-07-16] MEDS ORDERED: Aspirin 81 mg Enteric Coated Tablet PO SCH (09:00)
== END 2019-07-15 17:00 | disposition home or self-care (01) ==
LOC: ERS 20:59 → ERHOLD 23:28 → 2SW 07-14 07:46
PROVIDERS: ADMIT Internal Medicine; ATTEND Internal Medicine
PROC: 0JH632Z Insertion of Monitoring Device into Chest Subcutaneous Tissue and Fascia, Percutaneous Approach (ICD-10-PCS; principal; 2019-07-15)
DX: R55 Syncope and collapse (principal); I48.3 Typical atrial flutter; E87.6 Hypokalemia; I25.10 Atherosclerotic heart disease of native coronary artery without angina pectoris; I13.2 Hypertensive heart and chronic kidney disease with heart failure and with stage 5 chronic kidney disease, or end stage renal disease; E11.22 Type 2 diabetes mellitus with diabetic chronic kidney disease; N18.6 End stage renal disease; I50.9 Heart failure, unspecified; D63.1 Anemia in chronic kidney disease; I21.A1 Myocardial infarction type 2; I65.22 Occlusion and stenosis of left carotid artery; J44.9 Chronic obstructive pulmonary disease, unspecified; I65.29 Occlusion and stenosis of unspecified carotid artery; Z87.891 Personal history of nicotine dependence; Z79.899 Other long term (current) drug therapy; Z88.8 Allergy status to other drugs, medicaments and biological substances; Z95.1 Presence of aortocoronary bypass graft; Z99.2 Dependence on renal dialysis
CPT/HCPCS: 33285; 70450; 80053; 80061; 82550; 82553; 82962 ×2; 83880; 84146; 84484 ×3; 85025; 93005; 93880; 99285; C1764; G0378 ×2; 36415; 36416

== ENCOUNTER 2020-10-12 18:06 | Inpatient (IN) | payer MEDICARE, MEDICAID ==
[2020-10-12 19:05] LABS: #Eosinphils 0.5 thou/uL (0.0-0.7); #Lymphocytes 0.9 thou/uL (1.20-3.40); #Monocytes 0.7 thou/uL (0.11-0.59); %Basophils 0.7 % (0.0-1.0); %Lymphocytes 18.3 % (21.0-51.0); %Monocytes 13.2 % (0.0-10.0); %Neutrophils 58.8 % (42.0-75.0); Hemoglobin 12.3 g/dL (14.0-18.0); Mean Corpuscular HGB CONC 34.7 g/dL (32.0-36.0); Mean Corpuscular Volume 86.4 fL (78.0-98.0); Mean Platelet Volume 8.8 fL (7.4-10.4); Platelet Count 100 thou/uL (130-400); RBC Distribution Width 13.2 % (11.5-14.5); Red Blood Cell (RBC) Count 4.09 mill/uL (4.70-6.10); White Blood Cell (WBC) Count 5.1 thou/uL (4.8-10.8)
[2020-10-12] MEDS ORDERED: Nitroglycerin 2% Ointment 1 INCH/1 GM Packet ONE (19:19)
[2020-10-12 19:28] LABS: ALT (SGPT) 8 U/L (8-55); AST (SGOT) 19 U/L (5-34); Albumin 3.7 g/dL (3.4-4.8); Alkaline Phosphatase 72 U/L (40-110); Anion Gap 17 mmol/L (10-20); BUN (Urea Nitrogen) 51 mg/dL (8.4-25.7); Bilirubin, Total 0.6 mg/dL (0.2-1.2); Calc. Creatinine Clearance 0 mL/min (70-130); Calcium 9.1 mg/dL (7.8-10.44); Carbon Dioxide 21 mmol/L (23-31); Chloride 103 mmol/L (98-107); Globulin 4.3 g/dL (2.4-3.5); Glucose 213 mg/dL (83-110); Potassium 4.1 mmol/L (3.5-5.1); Sodium 137 mmol/L (136-145)
[2020-10-12 19:45] LABS: Magnesium 2.2 mg/dL (1.6-2.6); Phosphorus 4.5 mg/dL (2.3-4.7)
[2020-10-12] MEDS ORDERED: Labetalol HCl 100 MG/20 ML VIAL ONE (22:01)
[2020-10-12] MEDS ORDERED: Ondansetron PF 4 MG/2 ML Vial IVP PRN (22:50)
[2020-10-12] MEDS ORDERED: Ondansetron ODT 4 MG TAB PO PRN (22:50)
[2020-10-12] MEDS ORDERED: Acetaminophen 325 MG TAB PO PRN (22:50)
[2020-10-12] MEDS ORDERED: hydrALAZINE 20 MG/ML VIAL SLOW IVP PRN (22:54)
[2020-10-12] MEDS ORDERED: traMADol HCl 50 MG TAB PO PRN (22:55)
[2020-10-12] MEDS ORDERED: traZODone HCl 50 MG TAB PO ONE (22:57)
[2020-10-12] MEDS ORDERED: Albuterol Sulfate 2.5 mg/3 ml Neb IPPB PRN (22:57)
[2020-10-12] MEDS ORDERED: Labetalol HCl 100 MG/20 ML VIAL SLOW IVP PRN (23:01)
[2020-10-12] MEDS ORDERED: Benzonatate 100 MG CAP PO PRN (23:37)
[2020-10-13] MEDS ORDERED: traZODone HCl 50 MG TAB PO SCH ×2 (00:30→21:00)
[2020-10-13] MEDS ORDERED: HumaLOG 300 UNITS/3 ML VIAL SC PRN ×2 (00:35)
[2020-10-13] MEDS ORDERED: Dextrose 50% Abboject 50 ML SYRINGE SLOW IVP PRN (00:35)
[2020-10-13] MEDS ORDERED: Dextrose 5% in Water 1,000 ML IV PRN (00:35)
[2020-10-13 00:45] LABS: Troponin I 0.319 ng/mL (< 0.028)
[2020-10-13] MEDS ORDERED: Nicotine 21 MG PATCH TD SCH (01:00)
[2020-10-13] MEDS ORDERED: Heparin 25,000 units/D5W 500 ML IVPB SCH (01:00)
[2020-10-13] MEDS ORDERED: Heparin 10,000 UNITS/ 10 ML VIAL SLOW IVP SCH (01:00)
[2020-10-13 01:47] VITALS: BMI 22.5
[2020-10-13 02:46] LABS: #Eosinphils 0.4 thou/uL (0.0-0.7); #Lymphocytes 1.1 thou/uL (1.20-3.40); #Monocytes 0.9 thou/uL (0.11-0.59); #Neutrophils 3.8 thou/uL (1.40-6.50); %Basophils 0.3 % (0.0-1.0); %Eosinophils 6.4 % (0.0-10.0); %Lymphocytes 17.6 % (21.0-51.0); %Monocytes 14.7 % (0.0-10.0); Hemoglobin 11.9 g/dL (14.0-18.0); Mean Corpuscular HGB CONC 35.1 g/dL (32.0-36.0); Mean Corpuscular Hemoglobin 30.2 pg (27.0-31.0); Mean Corpuscular Volume 85.9 fL (78.0-98.0); Mean Platelet Volume 8.5 fL (7.4-10.4); Platelet Count 97 thou/uL (130-400); RBC Distribution Width 13.1 % (11.5-14.5); Red Blood Cell (RBC) Count 3.94 mill/uL (4.70-6.10); White Blood Cell (WBC) Count 6.3 thou/uL (4.8-10.8)
[2020-10-13] MEDS: hydrALAZINE 25 MG TAB PO SCH ×4 (02:50→20:35)
[2020-10-13 03:06] LABS: Anion Gap 17 mmol/L (10-20); BUN (Urea Nitrogen) 53 mg/dL (8.4-25.7); Calc. Creatinine Clearance 8 mL/min (70-130); Calcium 8.9 mg/dL (7.8-10.44); Carbon Dioxide 21 mmol/L (23-31); Chloride 104 mmol/L (98-107); Glucose 118 mg/dL (83-110); Potassium 3.9 mmol/L (3.5-5.1); Sodium 138 mmol/L (136-145)
[2020-10-13 03:10] LABS: Troponin I 0.338 ng/mL (< 0.028)
[2020-10-13] MEDS ORDERED: hydrALAZINE 25 MG TAB PO SCH ×2 (03:15→09:00)
[2020-10-13 04:16] LABS: SARS-CoV-2 NAA Rapid Test Not Detected (NotDetected)
[2020-10-13] MEDS ORDERED: Heparin 5,000 UNITS/ML VIAL SC SCH (09:00)
[2020-10-13] MEDS ORDERED: Apixaban 5 MG TAB PO SCH (09:00)
[2020-10-13] MEDS ORDERED: traMADol HCl 50 MG TAB PO PRN (10:32)
[2020-10-13] MEDS: Folic Acid 1 MG TAB PO SCH (13:01)
[2020-10-13] MEDS: guaiFENesin ER 600 MG TAB PO SCH ×2 (13:01→20:34)
[2020-10-13] MEDS: Apixaban 5 MG TAB PO SCH (20:34)
[2020-10-13] MEDS ORDERED: Atorvastatin Calcium 20 MG TAB PO SCH (21:00)
[2020-10-14 05:11] LABS: #Basophils 0.1 thou/uL (0.0-0.2); #Eosinphils 0.3 thou/uL (0.0-0.7); #Lymphocytes 1.4 thou/uL (1.20-3.40); #Monocytes 0.9 thou/uL (0.11-0.59); #Neutrophils 6.9 thou/uL (1.40-6.50); %Basophils 0.6 % (0.0-1.0); %Eosinophils 3.1 % (0.0-10.0); %Lymphocytes 14.5 % (21.0-51.0); %Monocytes 9.7 % (0.0-10.0); %Neutrophils 72.2 % (42.0-75.0); Hemoglobin 11.2 g/dL (14.0-18.0); Mean Corpuscular HGB CONC 33.9 g/dL (32.0-36.0); Mean Corpuscular Hemoglobin 29.4 pg (27.0-31.0); Mean Corpuscular Volume 86.5 fL (78.0-98.0); Platelet Count 110 thou/uL (130-400); White Blood Cell (WBC) Count 9.5 thou/uL (4.8-10.8)
[2020-10-14 05:27] LABS: Anion Gap 15 mmol/L (10-20); BUN (Urea Nitrogen) 30 mg/dL (8.4-25.7); Calc. Creatinine Clearance 13 mL/min (70-130); Carbon Dioxide 24 mmol/L (23-31); Chloride 100 mmol/L (98-107); Glucose 105 mg/dL (83-110); Sodium 135 mmol/L (136-145)
[2020-10-14] MEDS ORDERED: Nicotine 21 MG PATCH TD SCH (09:00)
[2020-10-14] MEDS: guaiFENesin ER 600 MG TAB PO SCH (09:03)
[2020-10-14] MEDS: Apixaban 5 MG TAB PO SCH (09:03)
[2020-10-14] MEDS: hydrALAZINE 25 MG TAB PO SCH ×2 (09:03→15:29)
[2020-10-14] MEDS: Folic Acid 1 MG TAB PO SCH (09:03)
[2020-10-14 15:26] VITALS: BP 133/63; TEMP 97.6
[2020-10-14 18:30] LABS: Body Surface Area 2.09
[2020-10-14 18:44] LABS: 24 Hr Creatinine 937.68 mg/24 hr (950-2490); Creatinine, Urine 117.21 mg/dL (63-166)
[2020-10-14 19:30] LABS: Creatinine, Urine 113.88 mg/dL (63-166)
== END 2020-10-14 22:16 | disposition home health service (06) | DRG 640 ==
LOC: ERS 18:06 → 2NO 22:21
PROVIDERS: ADMIT Family Medicine; ATTEND Family Medicine
PROC: 5A1D70Z Performance of Urinary Filtration, Intermittent, Less than 6 Hours Per Day (ICD-10-PCS; principal; 2020-10-13)
DX: E87.70 Fluid overload, unspecified (principal); N18.6 End stage renal disease; I21.A1 Myocardial infarction type 2; I48.92 Unspecified atrial flutter; I13.2 Hypertensive heart and chronic kidney disease with heart failure and with stage 5 chronic kidney disease, or end stage renal disease; I50.22 Chronic systolic (congestive) heart failure; I25.10 Atherosclerotic heart disease of native coronary artery without angina pectoris; Z20.822 Contact with and (suspected) exposure to COVID-19; E11.22 Type 2 diabetes mellitus with diabetic chronic kidney disease; J44.9 Chronic obstructive pulmonary disease, unspecified; D63.1 Anemia in chronic kidney disease; I65.29 Occlusion and stenosis of unspecified carotid artery; F17.210 Nicotine dependence, cigarettes, uncomplicated; I48.91 Unspecified atrial fibrillation; J06.9 Acute upper respiratory infection, unspecified; Z95.1 Presence of aortocoronary bypass graft; Z95.0 Presence of cardiac pacemaker; Z99.2 Dependence on renal dialysis; Z79.51 Long term (current) use of inhaled steroids; Z88.8 Allergy status to other drugs, medicaments and biological substances; Z79.899 Other long term (current) drug therapy; Z91.19 Patient's noncompliance with other medical treatment and regimen
CPT/HCPCS: 36415; 36416; 71045; 80048; 80053; 82553; 82570; 82575; 83735; 84100; 84443; 84484; 85025; 85730; 90935; 93005; 93010; 96374; G0257; J1644; U0002; U0005

== ENCOUNTER 2021-02-14 15:06 | Inpatient (IN) | payer MEDICARE, MEDICAID ==
[2021-02-14] MEDS ORDERED: Dexamethasone 10 MG/ML VIAL ONE (15:24)
[2021-02-14] MEDS ORDERED: Acetaminophen 500 MG TAB ONE (15:24)
[2021-02-14] MEDS ORDERED: hydrALAZINE 20 MG/ML VIAL ONE (15:36)
[2021-02-14 16:00] LABS: Hemoglobin 11.4 g/dL (14.0-18.0); Mean Corpuscular HGB CONC 35.1 g/dL (32.0-36.0); Mean Corpuscular Volume 85.3 fL (78.0-98.0); Mean Platelet Volume 9.1 fL (7.4-10.4); Platelet Count 85 thou/uL (130-400); RBC Distribution Width 13.2 % (11.5-14.5)
[2021-02-14 16:17] LABS: Band 2 % (5-11); Eosinophils 2 % (0-10); Lymphocytes 16 % (21-51); MDiff Complete? YES; Monocytes 14 % (0-10); Neutrophil 65 % (42-75); Ovalocytes SLIGHT = 2-5 cells (100X) (0-1/hpf); Platelet Morphology Comment Appears Decreased; Polychromasia SLIGHT = 2-3 cells (100X) (0-2/hpf)
[2021-02-14 16:37] LABS: ALT (SGPT) 12 U/L (8-55); AST (SGOT) 19 U/L (5-34); Albumin 3.7 g/dL (3.4-4.8); Alkaline Phosphatase 60 U/L (40-110); Anion Gap 18 mmol/L (10-20); BUN (Urea Nitrogen) 74 mg/dL (8.4-25.7); Bilirubin, Total 0.6 mg/dL (0.2-1.2); CRP (Inflammatory) 3.08 mg/dL (= or < 0.5); Calc. Creatinine Clearance 0 mL/min (70-130); Calcium 8.8 mg/dL (7.8-10.44); Carbon Dioxide 20 mmol/L (23-31); Chloride 105 mmol/L (98-107); Globulin 3.7 g/dL (2.4-3.5); Glucose 101 mg/dL (83-110); Potassium 4.1 mmol/L (3.5-5.1); Protein, Total 7.4 g/dL (5.8-8.1); Sodium 139 mmol/L (136-145)
[2021-02-14 17:57] LABS: CKMB 1.7 ng/mL (0-6.6)
[2021-02-14] MEDS ORDERED: Ondansetron PF 4 MG/2 ML Vial IVP PRN (19:25)
[2021-02-14] MEDS ORDERED: Senokot S 8.6-50 MG TAB PO PRN (19:25)
[2021-02-14] MEDS ORDERED: HYDROcodone/Acetaminophen 7.5/325 mg Tablet PO PRN (19:25)
[2021-02-14] MEDS ORDERED: HYDROcodone/Acetaminophen 5/325 mg Tablet PO PRN (19:25)
[2021-02-14] MEDS ORDERED: Acetaminophen 325 MG TAB PO PRN (19:25)
[2021-02-14] MEDS ORDERED: Guaifenesin DM 100-10/5 ML UDCUP PO PRN (19:25)
[2021-02-14] MEDS ORDERED: hydrALAZINE 20 MG/ML VIAL SLOW IVP PRN (19:34)
[2021-02-14] MEDS ORDERED: Melatonin 3 MG TAB PO PRN (19:34)
[2021-02-14] MEDS ORDERED: Albuterol Sulfate 1.25 MG/3 ML NEB INH PRN (21:19)
[2021-02-14] MEDS ORDERED: HumaLOG 300 UNITS/3 ML VIAL SC PRN ×2 (21:32)
[2021-02-14] MEDS ORDERED: Dextrose 5% in Water 1,000 ML IV PRN (21:32)
[2021-02-14] MEDS ORDERED: Dextrose 50% Abboject 50 ML SYRINGE SLOW IVP PRN (21:32)
[2021-02-14] MEDS: Apixaban 5 MG TAB PO SCH (22:00)
[2021-02-14] MEDS: hydrALAZINE 25 MG TAB PO SCH (22:00)
[2021-02-14] MEDS: Azithromycin 500 MG in Sodium Chloride 0.9% 250 ML 250 ML IVPB SCH (22:00)
[2021-02-14] MEDS: Atorvastatin Calcium 20 MG TAB PO SCH (22:02)
[2021-02-14] MEDS: Dexamethasone 10 MG/ML VIAL SLOW IVP SCH (23:30)
[2021-02-15] MEDS: cefTRIAXone\\ROCEPHIN 2 GM in Sodium Chloride 0.9% 100 ML IVPB SCH ×2 (01:02→20:52)
[2021-02-15 01:25] LABS: SARS-CoV-2 NAA Rapid Test DETECTED (NotDetected)
[2021-02-15 01:50] VITALS: BMI 24.5
[2021-02-15 05:56] LABS: #Lymphocytes 0.6 thou/uL (1.20-3.40); #Monocytes 0.2 thou/uL (0.11-0.59); #Neutrophils 2.7 thou/uL (1.40-6.50); %Eosinophils 0.2 % (0.0-10.0); %Lymphocytes 16.2 % (21.0-51.0); %Monocytes 5.2 % (0.0-10.0); %Neutrophils 78.5 % (42.0-75.0); Hemoglobin 12.4 g/dL (14.0-18.0); Mean Corpuscular HGB CONC 32.9 g/dL (32.0-36.0); Mean Corpuscular Hemoglobin 28.2 pg (27.0-31.0); Mean Corpuscular Volume 85.9 fL (78.0-98.0); Mean Platelet Volume 9.5 fL (7.4-10.4); Platelet Count 97 thou/uL (130-400); RBC Distribution Width 13.4 % (11.5-14.5); Red Blood Cell (RBC) Count 4.39 mill/uL (4.70-6.10); White Blood Cell (WBC) Count 3.4 thou/uL (4.8-10.8)
[2021-02-15 06:17] LABS: ALT (SGPT) 14 U/L (8-55); AST (SGOT) 23 U/L (5-34); Albumin 3.7 g/dL (3.4-4.8); Alkaline Phosphatase 60 U/L (40-110); Anion Gap 18 mmol/L (10-20); BUN (Urea Nitrogen) 42 mg/dL (8.4-25.7); Bilirubin, Total 0.7 mg/dL (0.2-1.2); Calc. Creatinine Clearance 12 mL/min (70-130); Calcium 9.1 mg/dL (7.8-10.44); Carbon Dioxide 23 mmol/L (23-31); Chloride 103 mmol/L (98-107); Glucose 141 mg/dL (83-110); Potassium 3.7 mmol/L (3.5-5.1); Protein, Total 7.7 g/dL (5.8-8.1); Sodium 140 mmol/L (136-145)
[2021-02-15] MEDS: Isosorbide Dinitrate 20 MG TAB PO SCH ×2 (09:53→20:53)
[2021-02-15] MEDS: hydrALAZINE 25 MG TAB PO SCH ×3 (09:53→20:53)
[2021-02-15] MEDS: Dexamethasone 10 MG/ML VIAL SLOW IVP SCH ×2 (09:53→20:52)
[2021-02-15] MEDS: Apixaban 5 MG TAB PO SCH ×2 (09:53→20:53)
[2021-02-15] MEDS: Ascorbic Acid 500 mg Chewable Tablet PO SCH (09:53)
[2021-02-15] MEDS: Cholecalciferol (Vitamin D3) 400 UNITS TAB PO SCH (09:53)
[2021-02-15] MEDS: Zinc Sulfate 220 MG CAP PO SCH (09:54)
[2021-02-15] MEDS: Atorvastatin Calcium 20 MG TAB PO SCH (20:53)
[2021-02-15] MEDS ORDERED: traZODone HCl 50 MG TAB PO SCH (21:00)
[2021-02-15] MEDS: Azithromycin 500 MG in Sodium Chloride 0.9% 250 ML 250 ML IVPB SCH (21:50)
[2021-02-16] MEDS: Cholecalciferol (Vitamin D3) 400 UNITS TAB PO SCH (10:41)
[2021-02-16] MEDS: Zinc Sulfate 220 MG CAP PO SCH (10:41)
[2021-02-16] MEDS: Dexamethasone 10 MG/ML VIAL SLOW IVP SCH (10:41)
[2021-02-16] MEDS: Apixaban 5 MG TAB PO SCH (10:41)
[2021-02-16] MEDS: Ascorbic Acid 500 mg Chewable Tablet PO SCH (10:41)
[2021-02-16 13:46] VITALS: TEMP 98.1
[2021-02-16] MEDS: Isosorbide Dinitrate 20 MG TAB PO SCH (14:59)
[2021-02-16] MEDS: hydrALAZINE 25 MG TAB PO SCH ×2 (14:59→16:14)
[2021-02-16 15:00] VITALS: BP 133/69
== END 2021-02-16 16:05 | disposition home or self-care (01) | DRG 177 ==
LOC: ERS 15:06 → 2SW 17:20
PROVIDERS: ADMIT Internal Medicine; ATTEND Family Medicine
PROC: 5A1D70Z Performance of Urinary Filtration, Intermittent, Less than 6 Hours Per Day (ICD-10-PCS; principal; 2021-02-14)
PROC: 8E0ZXY6 Isolation (ICD-10-PCS; 2021-02-14)
DX: U07.1 COVID-19 (principal); N18.6 End stage renal disease; I21.A1 Myocardial infarction type 2; I50.22 Chronic systolic (congestive) heart failure; I42.9 Cardiomyopathy, unspecified; I13.2 Hypertensive heart and chronic kidney disease with heart failure and with stage 5 chronic kidney disease, or end stage renal disease; E11.22 Type 2 diabetes mellitus with diabetic chronic kidney disease; F03.90 Unspecified dementia, unspecified severity, without behavioral disturbance, psychotic disturbance, mood disturbance, and anxiety; D64.9 Anemia, unspecified; E11.59 Type 2 diabetes mellitus with other circulatory complications; I27.20 Pulmonary hypertension, unspecified; I25.10 Atherosclerotic heart disease of native coronary artery without angina pectoris; Z95.1 Presence of aortocoronary bypass graft; Z87.891 Personal history of nicotine dependence; Z91.15 Patient's noncompliance with renal dialysis; Z88.8 Allergy status to other drugs, medicaments and biological substances; Z79.899 Other long term (current) drug therapy; Z79.4 Long term (current) use of insulin; Z99.2 Dependence on renal dialysis; I25.2 Old myocardial infarction
CPT/HCPCS: 36415; 36416; 71045; 80053; 82553; 83605; 83880; 84484; 85025; 85652; 86140; 87040; 90935; 93005; 94760; 96374; 96375; G0257; J0360; J0456; J0696; J1100; J3490; J7050; U0002

== ENCOUNTER 2021-02-18 15:56 | Inpatient (IN) | payer MEDICARE, MEDICAID ==
[2021-02-18 16:16] LABS: #Eosinphils 0.1 thou/uL (0.0-0.7); #Lymphocytes 1.8 thou/uL (1.20-3.40); #Monocytes 0.7 thou/uL (0.11-0.59); #Neutrophils 5.4 thou/uL (1.40-6.50); %Basophils 0.2 % (0.0-1.0); %Eosinophils 1.7 % (0.0-10.0); %Lymphocytes 22.8 % (21.0-51.0); %Monocytes 8.2 % (0.0-10.0); %Neutrophils 67.1 % (42.0-75.0); Hemoglobin 12.7 g/dL (14.0-18.0); Mean Corpuscular HGB CONC 33.4 g/dL (32.0-36.0); Mean Corpuscular Volume 86.8 fL (78.0-98.0); Mean Platelet Volume 9.5 fL (7.4-10.4); Platelet Count 126 thou/uL (130-400); RBC Distribution Width 13.1 % (11.5-14.5); Red Blood Cell (RBC) Count 4.39 mill/uL (4.70-6.10); White Blood Cell (WBC) Count 8.1 thou/uL (4.8-10.8)
[2021-02-18 16:56] LABS: ALT (SGPT) 35 U/L (8-55); AST (SGOT) 32 U/L (5-34); Albumin 3.4 g/dL (3.4-4.8); Alkaline Phosphatase 54 U/L (40-110); Anion Gap 21 mmol/L (10-20); BUN (Urea Nitrogen) 73 mg/dL (8.4-25.7); Bilirubin, Total 0.6 mg/dL (0.2-1.2); Calc. Creatinine Clearance 0 mL/min (70-130); Calcium 8.3 mg/dL (7.8-10.44); Carbon Dioxide 22 mmol/L (23-31); Chloride 97 mmol/L (98-107); Globulin 3.8 g/dL (2.4-3.5); Glucose 157 mg/dL (83-110); Potassium 3.7 mmol/L (3.5-5.1); Protein, Total 7.2 g/dL (5.8-8.1); Sodium 136 mmol/L (136-145)
[2021-02-18 18:05] LABS: CKMB 2.3 ng/mL (0-6.6)
[2021-02-18] MEDS ORDERED: Aspirin Chewable 81 MG TAB ONE (18:26)
[2021-02-18 20:38] LABS: Troponin I 0.524 ng/mL (< 0.028)
[2021-02-18] MEDS ORDERED: Ondansetron PF 4 MG/2 ML Vial IVP PRN (21:24)
[2021-02-18] MEDS ORDERED: Acetaminophen 650 MG Suppository PR PRN (21:24)
[2021-02-18] MEDS ORDERED: HumaLOG 300 UNITS/3 ML VIAL SC PRN (21:24)
[2021-02-18] MEDS ORDERED: Ondansetron ODT 4 MG TAB PO PRN (21:24)
[2021-02-18] MEDS ORDERED: Dextrose 5% in Water 1,000 ML IV PRN (21:24)
[2021-02-18] MEDS ORDERED: Dextrose 50% Abboject 50 ML SYRINGE SLOW IVP PRN (21:24)
[2021-02-18] MEDS ORDERED: Acetaminophen 325 MG TAB PO PRN (21:24)
[2021-02-18] MEDS ORDERED: Heparin 5,000 UNITS/ML VIAL SC SCH (21:52)
[2021-02-18] MEDS ORDERED: traMADol HCl 50 MG TAB PO PRN (21:56)
[2021-02-18 22:36] LABS: Troponin I 0.608 ng/mL (< 0.028)
[2021-02-19 02:26] LABS: Amphetamine Not Detected (NotDetected); Barbiturates Screen Not Detected (NotDetected); Benzodiazepine Screen Not Detected (NotDetected); Cocaine Metabolite Screen Not Detected (NotDetected); Methadone Not Detected (NotDetected); Methamphetamine Not Detected (NotDetected); Opiate Screen Not Detected (NotDetected); Oxycodone Screen Not Detected (NotDetected); Phencyclidine (PCP) Not Detected (NotDetected); THC/Cannabinoid Screen Not Detected (NotDetected); Tricyclic Screen Not Detected (NotDetected)
[2021-02-19 05:37] LABS: #Eosinphils 0.1 thou/uL (0.0-0.7); #Lymphocytes 1.1 thou/uL (1.20-3.40); #Monocytes 0.7 thou/uL (0.11-0.59); #Neutrophils 5.4 thou/uL (1.40-6.50); %Eosinophils 1.9 % (0.0-10.0); %Lymphocytes 15.1 % (21.0-51.0); %Monocytes 9.2 % (0.0-10.0); %Neutrophils 73.9 % (42.0-75.0); Hemoglobin 12.5 g/dL (14.0-18.0); Mean Corpuscular HGB CONC 32.1 g/dL (32.0-36.0); Mean Corpuscular Hemoglobin 27.9 pg (27.0-31.0); Mean Corpuscular Volume 86.9 fL (78.0-98.0); Mean Platelet Volume 9.5 fL (7.4-10.4); Platelet Count 117 thou/uL (130-400); RBC Distribution Width 13.2 % (11.5-14.5); Red Blood Cell (RBC) Count 4.47 mill/uL (4.70-6.10); White Blood Cell (WBC) Count 7.4 thou/uL (4.8-10.8)
[2021-02-19 05:51] LABS: Anion Gap 22 mmol/L (10-20); BUN (Urea Nitrogen) 76 mg/dL (8.4-25.7); Calc. Creatinine Clearance 9 mL/min (70-130); Carbon Dioxide 22 mmol/L (23-31); Chloride 95 mmol/L (98-107); Potassium 3.8 mmol/L (3.5-5.1); Sodium 135 mmol/L (136-145)
[2021-02-19 05:52] LABS: Calcium 7.8 mg/dL (7.8-10.44); Glucose 101 mg/dL (83-110)
[2021-02-19] MEDS ORDERED: Senokot S 8.6-50 MG TAB PO PRN (07:21)
[2021-02-19] MEDS ORDERED: Benzonatate 100 MG CAP PO PRN (07:21)
[2021-02-19] MEDS ORDERED: Calcium Carbonate 500 MG ChewTAB PO PRN (07:21)
[2021-02-19] MEDS ORDERED: Loratadine 10 MG TAB PO PRN (07:21)
[2021-02-19] MEDS ORDERED: Cepastat Lozenges 1 LOZ PO PRN (07:21)
[2021-02-19] MEDS ORDERED: Hydrocerin (Eucerin) Cream 120 gm Jar TOP PRN (07:21)
[2021-02-19] MEDS ORDERED: Loperamide HCl 2 MG CAP PO PRN (07:21)
[2021-02-19] MEDS ORDERED: hydrALAZINE 20 MG/ML VIAL SLOW IVP PRN (07:21)
[2021-02-19] MEDS ORDERED: GUAIFENESIN SF SOLN 200 MG/10 ML UDCUP PO PRN (07:21)
[2021-02-19] MEDS ORDERED: Bisacodyl 5 MG TAB PO PRN (07:21)
[2021-02-19] MEDS ORDERED: Artificial Tear Sol 15 ML BOT EA EYE PRN (07:21)
[2021-02-19] MEDS: hydrALAZINE 25 MG TAB PO SCH ×3 (08:39→21:25)
[2021-02-19] MEDS: Isosorbide Dinitrate 20 MG TAB PO SCH ×2 (08:39→21:25)
[2021-02-19] MEDS: Zinc Sulfate 220 MG CAP PO SCH (08:39)
[2021-02-19] MEDS: Ascorbic Acid 500 mg Chewable Tablet PO SCH (08:40)
[2021-02-19] MEDS: Apixaban 5 MG TAB PO SCH ×2 (08:41→21:28)
[2021-02-19] MEDS: Cholecalciferol (Vitamin D3) 400 UNITS TAB PO SCH (08:41)
[2021-02-19] MEDS ORDERED: Heparin 5,000 UNITS/ML VIAL SC SCH (09:00)
[2021-02-19] MEDS ORDERED: Ascorbic Acid 500 mg Chewable Tablet PO SCH (09:00)
[2021-02-19] MEDS ORDERED: Albuterol 200 PUFF (6.7GM INHALER) INH PRN (09:52)
[2021-02-19] MEDS: Dexamethasone 4 MG TAB PO SCH (10:14)
[2021-02-19] MEDS: Aspirin Chewable 81 MG TAB PO SCH (10:14)
[2021-02-19] MEDS: HumaLOG 300 UNITS/3 ML VIAL SC PRN (16:39)
[2021-02-19] MEDS: Albuterol 200 PUFF (6.7GM INHALER) INH SCH ×2 (16:41→21:28)
[2021-02-19 19:42] LABS: Magnesium 2.3 mg/dL (1.6-2.6)
[2021-02-19] MEDS: Metoprolol Tartrate 25 MG TAB PO SCH (21:24)
[2021-02-19] MEDS: Atorvastatin Calcium 20 MG TAB PO SCH (22:03)
[2021-02-20] MEDS: Albuterol 200 PUFF (6.7GM INHALER) INH SCH ×4 (01:16→18:55)
[2021-02-20 05:24] LABS: #Eosinphils 0.1 thou/uL (0.0-0.7); #Lymphocytes 0.8 thou/uL (1.20-3.40); #Monocytes 0.6 thou/uL (0.11-0.59); #Neutrophils 7.4 thou/uL (1.40-6.50); %Basophils 0.6 % (0.0-1.0); %Eosinophils 0.6 % (0.0-10.0); %Lymphocytes 8.9 % (21.0-51.0); %Monocytes 6.2 % (0.0-10.0); %Neutrophils 83.7 % (42.0-75.0); Hemoglobin 11.7 g/dL (14.0-18.0); Mean Corpuscular HGB CONC 32.9 g/dL (32.0-36.0); Mean Corpuscular Hemoglobin 28.5 pg (27.0-31.0); Mean Corpuscular Volume 86.7 fL (78.0-98.0); Mean Platelet Volume 9.1 fL (7.4-10.4); Platelet Count 148 thou/uL (130-400); RBC Distribution Width 13.1 % (11.5-14.5); Red Blood Cell (RBC) Count 4.11 mill/uL (4.70-6.10); White Blood Cell (WBC) Count 8.8 thou/uL (4.8-10.8)
[2021-02-20 05:51] LABS: ALT (SGPT) 33 U/L (8-55); AST (SGOT) 32 U/L (5-34); Albumin 3.5 g/dL (3.4-4.8); Alkaline Phosphatase 51 U/L (40-110); Anion Gap 21 mmol/L (10-20); BUN (Urea Nitrogen) 94 mg/dL (8.4-25.7); Bilirubin, Total 0.5 mg/dL (0.2-1.2); Calc. Creatinine Clearance 8 mL/min (70-130); Calcium 8.3 mg/dL (7.8-10.44); Carbon Dioxide 23 mmol/L (23-31); Chloride 97 mmol/L (98-107); Globulin 3.8 g/dL (2.4-3.5); Glucose 118 mg/dL (83-110); Magnesium 2.2 mg/dL (1.6-2.6); Phosphorus 6.2 mg/dL (2.3-4.7); Potassium 3.9 mmol/L (3.5-5.1); Protein, Total 7.3 g/dL (5.8-8.1); Sodium 137 mmol/L (136-145)
[2021-02-20] MEDS: Aspirin Chewable 81 MG TAB PO SCH (08:09)
[2021-02-20] MEDS: Zinc Sulfate 220 MG CAP PO SCH (08:09)
[2021-02-20] MEDS: Dexamethasone 4 MG TAB PO SCH (08:09)
[2021-02-20] MEDS: Apixaban 5 MG TAB PO SCH ×2 (08:09→20:58)
[2021-02-20] MEDS: Cholecalciferol (Vitamin D3) 400 UNITS TAB PO SCH (08:09)
[2021-02-20] MEDS: Ascorbic Acid 500 mg Chewable Tablet PO SCH (08:09)
[2021-02-20] MEDS: Sevelamer Carbonate 800 MG TAB PO SCH ×3 (08:09→19:01)
[2021-02-20] MEDS: Isosorbide Dinitrate 20 MG TAB PO SCH ×2 (09:17→20:57)
[2021-02-20] MEDS: hydrALAZINE 25 MG TAB PO SCH ×3 (09:17→21:00)
[2021-02-20] MEDS: Metoprolol Tartrate 25 MG TAB PO SCH ×3 (09:18→21:00)
[2021-02-20] MEDS: HumaLOG 300 UNITS/3 ML VIAL SC PRN ×2 (11:52→17:34)
[2021-02-20] MEDS: Atorvastatin Calcium 20 MG TAB PO SCH (20:58)
[2021-02-21] MEDS: Albuterol 200 PUFF (6.7GM INHALER) INH SCH ×4 (00:49→17:55)
[2021-02-21 06:06] LABS: #Lymphocytes 0.6 thou/uL (1.20-3.40); #Monocytes 0.6 thou/uL (0.11-0.59); #Neutrophils 6.2 thou/uL (1.40-6.50); %Basophils 0.4 % (0.0-1.0); %Eosinophils 0.3 % (0.0-10.0); %Lymphocytes 7.7 % (21.0-51.0); %Neutrophils 83.6 % (42.0-75.0); Hemoglobin 11.3 g/dL (14.0-18.0); Mean Corpuscular HGB CONC 32.7 g/dL (32.0-36.0); Mean Corpuscular Hemoglobin 28.1 pg (27.0-31.0); Mean Corpuscular Volume 85.8 fL (78.0-98.0); Mean Platelet Volume 8.6 fL (7.4-10.4); Platelet Count 155 thou/uL (130-400); RBC Distribution Width 13.1 % (11.5-14.5); Red Blood Cell (RBC) Count 4.01 mill/uL (4.70-6.10); White Blood Cell (WBC) Count 7.5 thou/uL (4.8-10.8)
[2021-02-21 06:29] LABS: ALT (SGPT) 28 U/L (8-55); AST (SGOT) 27 U/L (5-34); Albumin 3.4 g/dL (3.4-4.8); Alkaline Phosphatase 47 U/L (40-110); Anion Gap 22 mmol/L (10-20); BUN (Urea Nitrogen) 107 mg/dL (8.4-25.7); Bilirubin, Total 0.4 mg/dL (0.2-1.2); Calc. Creatinine Clearance 7 mL/min (70-130); Carbon Dioxide 22 mmol/L (23-31); Chloride 98 mmol/L (98-107); Globulin 3.7 g/dL (2.4-3.5); Glucose 111 mg/dL (83-110); Potassium 3.9 mmol/L (3.5-5.1); Protein, Total 7.1 g/dL (5.8-8.1); Sodium 138 mmol/L (136-145)
[2021-02-21] MEDS: Aspirin Chewable 81 MG TAB PO SCH (09:47)
[2021-02-21] MEDS: Ascorbic Acid 500 mg Chewable Tablet PO SCH (09:47)
[2021-02-21] MEDS: Sevelamer Carbonate 800 MG TAB PO SCH ×3 (09:48→17:55)
[2021-02-21] MEDS: Dexamethasone 4 MG TAB PO SCH (09:48)
[2021-02-21] MEDS: Zinc Sulfate 220 MG CAP PO SCH (09:48)
[2021-02-21] MEDS: Apixaban 5 MG TAB PO SCH ×2 (09:48→20:49)
[2021-02-21] MEDS: hydrALAZINE 25 MG TAB PO SCH ×3 (09:49→20:49)
[2021-02-21] MEDS: Isosorbide Dinitrate 20 MG TAB PO SCH ×2 (09:50→20:48)
[2021-02-21] MEDS: Metoprolol Tartrate 25 MG TAB PO SCH (09:50)
[2021-02-21] MEDS: Cholecalciferol (Vitamin D3) 400 UNITS TAB PO SCH (09:53)
[2021-02-21] MEDS: HumaLOG 300 UNITS/3 ML VIAL SC PRN ×2 (13:00→16:51)
[2021-02-21] MEDS: Carvedilol 6.25 MG TAB PO SCH (17:54)
[2021-02-21] MEDS: Atorvastatin Calcium 20 MG TAB PO SCH (20:49)
[2021-02-22] MEDS: Albuterol 200 PUFF (6.7GM INHALER) INH SCH ×4 (01:35→20:56)
[2021-02-22] MEDS: Zinc Sulfate 220 MG CAP PO SCH (10:06)
[2021-02-22] MEDS: Ascorbic Acid 500 mg Chewable Tablet PO SCH (10:06)
[2021-02-22] MEDS: Apixaban 5 MG TAB PO SCH ×2 (10:06→20:56)
[2021-02-22] MEDS: hydrALAZINE 25 MG TAB PO SCH ×3 (10:06→20:57)
[2021-02-22] MEDS: Aspirin Chewable 81 MG TAB PO SCH (10:06)
[2021-02-22] MEDS: Isosorbide Dinitrate 20 MG TAB PO SCH ×2 (10:07→20:57)
[2021-02-22] MEDS: Sevelamer Carbonate 800 MG TAB PO SCH ×3 (10:07→17:54)
[2021-02-22] MEDS: Carvedilol 6.25 MG TAB PO SCH ×2 (10:07→17:54)
[2021-02-22] MEDS: Dexamethasone 4 MG TAB PO SCH (10:07)
[2021-02-22] MEDS: Cholecalciferol (Vitamin D3) 400 UNITS TAB PO SCH (10:08)
[2021-02-22] MEDS ORDERED: Dexamethasone 4 MG TAB PO SCH (11:15)
[2021-02-22] MEDS: HumaLOG 300 UNITS/3 ML VIAL SC PRN ×2 (11:40→17:55)
[2021-02-22] MEDS: Atorvastatin Calcium 20 MG TAB PO SCH (20:56)
[2021-02-23] MEDS: Albuterol 200 PUFF (6.7GM INHALER) INH SCH ×4 (01:19→20:43)
[2021-02-23 07:21] LABS: #Eosinphils 0.1 thou/uL (0.0-0.7); #Monocytes 0.5 thou/uL (0.11-0.59); #Neutrophils 5.3 thou/uL (1.40-6.50); %Basophils 0.7 % (0.0-1.0); %Eosinophils 0.9 % (0.0-10.0); %Lymphocytes 14.4 % (21.0-51.0); Mean Corpuscular HGB CONC 33.8 g/dL (32.0-36.0); Mean Corpuscular Hemoglobin 29.1 pg (27.0-31.0); Mean Platelet Volume 8.2 fL (7.4-10.4); Platelet Count 184 thou/uL (130-400); RBC Distribution Width 13.1 % (11.5-14.5); Red Blood Cell (RBC) Count 4.13 mill/uL (4.70-6.10); White Blood Cell (WBC) Count 6.9 thou/uL (4.8-10.8)
[2021-02-23 07:42] LABS: Anion Gap 17 mmol/L (10-20); BUN (Urea Nitrogen) 75 mg/dL (8.4-25.7); Calc. Creatinine Clearance 10 mL/min (70-130); Calcium 8.1 mg/dL (7.8-10.44); Carbon Dioxide 27 mmol/L (23-31); Chloride 100 mmol/L (98-107); Glucose 121 mg/dL (83-110); Potassium 3.8 mmol/L (3.5-5.1); Sodium 140 mmol/L (136-145)
[2021-02-23] MEDS: hydrALAZINE 25 MG TAB PO SCH ×3 (08:06→20:45)
[2021-02-23] MEDS: Apixaban 5 MG TAB PO SCH ×2 (08:06→20:45)
[2021-02-23] MEDS: Aspirin Chewable 81 MG TAB PO SCH (08:06)
[2021-02-23] MEDS: Ascorbic Acid 500 mg Chewable Tablet PO SCH (08:06)
[2021-02-23] MEDS: Zinc Sulfate 220 MG CAP PO SCH (08:07)
[2021-02-23] MEDS: Carvedilol 6.25 MG TAB PO SCH ×2 (08:07→16:15)
[2021-02-23] MEDS: Sevelamer Carbonate 800 MG TAB PO SCH ×3 (08:07→16:15)
[2021-02-23] MEDS: Cholecalciferol (Vitamin D3) 400 UNITS TAB PO SCH (08:07)
[2021-02-23] MEDS: Dexamethasone 4 MG TAB PO SCH (08:07)
[2021-02-23] MEDS: Isosorbide Dinitrate 20 MG TAB PO SCH ×2 (08:08→20:46)
[2021-02-23] MEDS: HumaLOG 300 UNITS/3 ML VIAL SC PRN (12:02)
[2021-02-23] MEDS: Atorvastatin Calcium 20 MG TAB PO SCH (20:45)
[2021-02-24] MEDS: Albuterol 200 PUFF (6.7GM INHALER) INH SCH ×4 (02:08→21:05)
[2021-02-24] MEDS: Ascorbic Acid 500 mg Chewable Tablet PO SCH (08:26)
[2021-02-24] MEDS: Isosorbide Dinitrate 20 MG TAB PO SCH ×2 (08:26→21:04)
[2021-02-24] MEDS: Aspirin Chewable 81 MG TAB PO SCH (08:26)
[2021-02-24] MEDS: Cholecalciferol (Vitamin D3) 400 UNITS TAB PO SCH (08:27)
[2021-02-24] MEDS: Apixaban 5 MG TAB PO SCH ×2 (08:27→21:03)
[2021-02-24] MEDS: hydrALAZINE 25 MG TAB PO SCH ×3 (08:27→21:03)
[2021-02-24] MEDS: Sevelamer Carbonate 800 MG TAB PO SCH ×3 (08:27→18:12)
[2021-02-24] MEDS: Dexamethasone 4 MG TAB PO SCH (08:27)
[2021-02-24] MEDS: Zinc Sulfate 220 MG CAP PO SCH (08:27)
[2021-02-24] MEDS: Carvedilol 6.25 MG TAB PO SCH ×2 (08:27→17:20)
[2021-02-24 13:21] LABS: #Eosinphils 0.1 thou/uL (0.0-0.7); #Lymphocytes 0.9 thou/uL (1.20-3.40); #Monocytes 0.5 thou/uL (0.11-0.59); #Neutrophils 6.3 thou/uL (1.40-6.50); %Basophils 0.2 % (0.0-1.0); %Eosinophils 1.2 % (0.0-10.0); %Lymphocytes 11.3 % (21.0-51.0); %Monocytes 6.2 % (0.0-10.0); %Neutrophils 81.1 % (42.0-75.0); Hemoglobin 12.4 g/dL (14.0-18.0); Mean Corpuscular HGB CONC 34.7 g/dL (32.0-36.0); Mean Corpuscular Hemoglobin 29.9 pg (27.0-31.0); Mean Corpuscular Volume 86.2 fL (78.0-98.0); Mean Platelet Volume 8.1 fL (7.4-10.4); Platelet Count 203 thou/uL (130-400); RBC Distribution Width 13.2 % (11.5-14.5); Red Blood Cell (RBC) Count 4.16 mill/uL (4.70-6.10); White Blood Cell (WBC) Count 7.8 thou/uL (4.8-10.8)
[2021-02-24] MEDS: Atorvastatin Calcium 20 MG TAB PO SCH (21:03)
[2021-02-25] MEDS: Albuterol 200 PUFF (6.7GM INHALER) INH SCH ×4 (01:39→17:51)
[2021-02-25 04:49] LABS: #Eosinphils 0.2 thou/uL (0.0-0.7); #Lymphocytes 1.4 thou/uL (1.20-3.40); #Monocytes 0.7 thou/uL (0.11-0.59); #Neutrophils 6.1 thou/uL (1.40-6.50); %Basophils 0.5 % (0.0-1.0); %Monocytes 8.4 % (0.0-10.0); Hemoglobin 13.1 g/dL (14.0-18.0); Mean Corpuscular HGB CONC 33.3 g/dL (32.0-36.0); Mean Corpuscular Hemoglobin 28.6 pg (27.0-31.0); Mean Corpuscular Volume 85.8 fL (78.0-98.0); Mean Platelet Volume 8.3 fL (7.4-10.4); Platelet Count 172 thou/uL (130-400); RBC Distribution Width 13.5 % (11.5-14.5); Red Blood Cell (RBC) Count 4.56 mill/uL (4.70-6.10); White Blood Cell (WBC) Count 8.4 thou/uL (4.8-10.8)
[2021-02-25 06:43] LABS: Anion Gap 18 mmol/L (10-20); BUN (Urea Nitrogen) 67 mg/dL (8.4-25.7); Calc. Creatinine Clearance 9 mL/min (70-130); Calcium 8.7 mg/dL (7.8-10.44); Carbon Dioxide 26 mmol/L (23-31); Chloride 99 mmol/L (98-107); Glucose 103 mg/dL (83-110); Potassium 4.1 mmol/L (3.5-5.1); Sodium 139 mmol/L (136-145)
[2021-02-25] MEDS: Ascorbic Acid 500 mg Chewable Tablet PO SCH (10:07)
[2021-02-25] MEDS: Apixaban 5 MG TAB PO SCH ×2 (10:08→21:31)
[2021-02-25] MEDS: Cholecalciferol (Vitamin D3) 400 UNITS TAB PO SCH (10:08)
[2021-02-25] MEDS: hydrALAZINE 25 MG TAB PO SCH ×3 (10:08→21:31)
[2021-02-25] MEDS: Sevelamer Carbonate 800 MG TAB PO SCH ×3 (10:08→17:51)
[2021-02-25] MEDS: Isosorbide Dinitrate 20 MG TAB PO SCH ×2 (10:08→21:30)
[2021-02-25] MEDS: Aspirin Chewable 81 MG TAB PO SCH (10:09)
[2021-02-25] MEDS: Carvedilol 6.25 MG TAB PO SCH ×2 (10:09→17:51)
[2021-02-25] MEDS: Zinc Sulfate 220 MG CAP PO SCH (10:09)
[2021-02-25] MEDS: Atorvastatin Calcium 20 MG TAB PO SCH (21:31)
[2021-02-26] MEDS: Albuterol 200 PUFF (6.7GM INHALER) INH SCH ×4 (01:41→18:43)
[2021-02-26 05:10] LABS: #Eosinphils 0.2 thou/uL (0.0-0.7); #Lymphocytes 1.6 thou/uL (1.20-3.40); #Monocytes 0.6 thou/uL (0.11-0.59); #Neutrophils 7.4 thou/uL (1.40-6.50); %Basophils 0.1 % (0.0-1.0); %Eosinophils 1.6 % (0.0-10.0); %Lymphocytes 16.1 % (21.0-51.0); %Monocytes 6.2 % (0.0-10.0); Hemoglobin 12.3 g/dL (14.0-18.0); Mean Corpuscular HGB CONC 33.8 g/dL (32.0-36.0); Mean Corpuscular Volume 85.8 fL (78.0-98.0); Mean Platelet Volume 7.7 fL (7.4-10.4); Platelet Count 214 thou/uL (130-400); RBC Distribution Width 13.5 % (11.5-14.5); Red Blood Cell (RBC) Count 4.25 mill/uL (4.70-6.10); White Blood Cell (WBC) Count 9.7 thou/uL (4.8-10.8)
[2021-02-26 06:19] VITALS: BMI 20.6
[2021-02-26] MEDS: Zinc Sulfate 220 MG CAP PO SCH (09:29)
[2021-02-26] MEDS: Isosorbide Dinitrate 20 MG TAB PO SCH ×2 (09:30→22:05)
[2021-02-26] MEDS: Ascorbic Acid 500 mg Chewable Tablet PO SCH (09:31)
[2021-02-26] MEDS: hydrALAZINE 25 MG TAB PO SCH ×3 (09:31→22:05)
[2021-02-26] MEDS: Sevelamer Carbonate 800 MG TAB PO SCH ×3 (09:31→18:10)
[2021-02-26] MEDS: Aspirin Chewable 81 MG TAB PO SCH (09:31)
[2021-02-26] MEDS: Cholecalciferol (Vitamin D3) 400 UNITS TAB PO SCH (09:31)
[2021-02-26] MEDS: Apixaban 5 MG TAB PO SCH ×2 (09:32→22:05)
[2021-02-26] MEDS: Carvedilol 6.25 MG TAB PO SCH ×2 (09:32→18:06)
[2021-02-26] MEDS: HumaLOG 300 UNITS/3 ML VIAL SC PRN (12:35)
[2021-02-26] MEDS: Atorvastatin Calcium 20 MG TAB PO SCH (22:05)
[2021-02-27] MEDS: Albuterol 200 PUFF (6.7GM INHALER) INH SCH ×4 (00:35→18:48)
[2021-02-27 07:38] LABS: #Basophils 0.1 thou/uL (0.0-0.2); #Eosinphils 0.2 thou/uL (0.0-0.7); #Lymphocytes 1.8 thou/uL (1.20-3.40); #Monocytes 0.6 thou/uL (0.11-0.59); #Neutrophils 7.4 thou/uL (1.40-6.50); %Basophils 0.6 % (0.0-1.0); %Eosinophils 2.2 % (0.0-10.0); %Lymphocytes 17.5 % (21.0-51.0); %Monocytes 6.2 % (0.0-10.0); %Neutrophils 73.5 % (42.0-75.0); Hemoglobin 12.7 g/dL (14.0-18.0); Mean Corpuscular HGB CONC 33.8 g/dL (32.0-36.0); Mean Corpuscular Hemoglobin 29.2 pg (27.0-31.0); Mean Corpuscular Volume 86.5 fL (78.0-98.0); Mean Platelet Volume 7.7 fL (7.4-10.4); Platelet Count 216 thou/uL (130-400); RBC Distribution Width 13.7 % (11.5-14.5); Red Blood Cell (RBC) Count 4.34 mill/uL (4.70-6.10); White Blood Cell (WBC) Count 10.1 thou/uL (4.8-10.8)
[2021-02-27] MEDS: Carvedilol 6.25 MG TAB PO SCH ×2 (07:44→16:41)
[2021-02-27] MEDS: Sevelamer Carbonate 800 MG TAB PO SCH ×3 (07:44→16:38)
[2021-02-27] MEDS: Zinc Sulfate 220 MG CAP PO SCH (08:57)
[2021-02-27] MEDS: Ascorbic Acid 500 mg Chewable Tablet PO SCH (08:57)
[2021-02-27] MEDS: Isosorbide Dinitrate 20 MG TAB PO SCH ×2 (08:57→21:58)
[2021-02-27] MEDS: Cholecalciferol (Vitamin D3) 400 UNITS TAB PO SCH (08:58)
[2021-02-27] MEDS: hydrALAZINE 25 MG TAB PO SCH ×4 (08:58→22:06)
[2021-02-27] MEDS: Aspirin Chewable 81 MG TAB PO SCH (08:59)
[2021-02-27] MEDS: Apixaban 5 MG TAB PO SCH ×2 (08:59→21:58)
[2021-02-27] MEDS: HumaLOG 300 UNITS/3 ML VIAL SC PRN (12:50)
[2021-02-27] MEDS: Atorvastatin Calcium 20 MG TAB PO SCH (21:58)
[2021-02-28] MEDS: Albuterol 200 PUFF (6.7GM INHALER) INH SCH ×4 (01:05→19:00)
[2021-02-28 07:52] LABS: Anion Gap 21 mmol/L (10-20); BUN (Urea Nitrogen) 88 mg/dL (8.4-25.7); Calc. Creatinine Clearance 6 mL/min (70-130); Calcium 8.9 mg/dL (7.8-10.44); Carbon Dioxide 26 mmol/L (23-31); Chloride 99 mmol/L (98-107); Glucose 139 mg/dL (83-110); Potassium 4.7 mmol/L (3.5-5.1); Sodium 141 mmol/L (136-145)
[2021-02-28] MEDS: Sevelamer Carbonate 800 MG TAB PO SCH ×3 (09:55→16:39)
[2021-02-28] MEDS: hydrALAZINE 25 MG TAB PO SCH ×3 (09:56→21:06)
[2021-02-28] MEDS: Carvedilol 6.25 MG TAB PO SCH ×2 (13:23→16:39)
[2021-02-28] MEDS: Apixaban 5 MG TAB PO SCH ×2 (13:23→21:05)
[2021-02-28] MEDS: Isosorbide Dinitrate 20 MG TAB PO SCH ×2 (13:23→21:08)
[2021-02-28] MEDS: Ascorbic Acid 500 mg Chewable Tablet PO SCH (13:42)
[2021-02-28] MEDS: Aspirin Chewable 81 MG TAB PO SCH (13:42)
[2021-02-28] MEDS: Cholecalciferol (Vitamin D3) 400 UNITS TAB PO SCH (13:42)
[2021-02-28] MEDS: Zinc Sulfate 220 MG CAP PO SCH (13:44)
[2021-02-28] MEDS: HumaLOG 300 UNITS/3 ML VIAL SC PRN (16:39)
[2021-02-28] MEDS: Atorvastatin Calcium 20 MG TAB PO SCH (21:07)
[2021-03-01] MEDS: Albuterol 200 PUFF (6.7GM INHALER) INH SCH ×4 (01:00→18:32)
[2021-03-01] MEDS: Apixaban 5 MG TAB PO SCH ×2 (07:52→20:05)
[2021-03-01] MEDS: Sevelamer Carbonate 800 MG TAB PO SCH ×3 (07:52→15:29)
[2021-03-01] MEDS: Aspirin Chewable 81 MG TAB PO SCH (07:52)
[2021-03-01] MEDS: Cholecalciferol (Vitamin D3) 400 UNITS TAB PO SCH (07:52)
[2021-03-01] MEDS: Ascorbic Acid 500 mg Chewable Tablet PO SCH (07:53)
[2021-03-01] MEDS: Zinc Sulfate 220 MG CAP PO SCH (07:53)
[2021-03-01] MEDS: Isosorbide Dinitrate 20 MG TAB PO SCH ×2 (07:53→20:05)
[2021-03-01] MEDS: hydrALAZINE 25 MG TAB PO SCH ×3 (07:54→20:07)
[2021-03-01] MEDS: Carvedilol 6.25 MG TAB PO SCH ×2 (07:54→15:30)
[2021-03-01] MEDS: Atorvastatin Calcium 20 MG TAB PO SCH (20:05)
[2021-03-02] MEDS: Albuterol 200 PUFF (6.7GM INHALER) INH SCH ×3 (00:17→13:35)
[2021-03-02] MEDS: Carvedilol 6.25 MG TAB PO SCH (08:38)
[2021-03-02] MEDS: Sevelamer Carbonate 800 MG TAB PO SCH ×2 (08:39→12:14)
[2021-03-02] MEDS: Aspirin Chewable 81 MG TAB PO SCH (08:39)
[2021-03-02] MEDS: Isosorbide Dinitrate 20 MG TAB PO SCH (08:39)
[2021-03-02] MEDS: hydrALAZINE 25 MG TAB PO SCH ×2 (08:40→16:54)
[2021-03-02] MEDS: Cholecalciferol (Vitamin D3) 400 UNITS TAB PO SCH (08:41)
[2021-03-02] MEDS: Apixaban 5 MG TAB PO SCH (08:41)
[2021-03-02] MEDS: Ascorbic Acid 500 mg Chewable Tablet PO SCH (08:43)
[2021-03-02] MEDS: Zinc Sulfate 220 MG CAP PO SCH (08:44)
[2021-03-02 11:30] VITALS: TEMP 97.6
[2021-03-02 15:07] VITALS: BP 122/67
== END 2021-03-02 15:45 | disposition home or self-care (01) | DRG 177 ==
LOC: ERS 15:56 → 2SW 18:26 → OBSVTOIN 02-19 08:54 → T4-B 02-26 15:50
PROVIDERS: ADMIT Internal Medicine; ATTEND Internal Medicine
PROC: 8E0ZXY6 Isolation (ICD-10-PCS; principal; 2021-02-19)
PROC: 5A1D70Z Performance of Urinary Filtration, Intermittent, Less than 6 Hours Per Day (ICD-10-PCS; 2021-02-20)
DX: U07.1 COVID-19 (principal); N18.6 End stage renal disease; J96.01 Acute respiratory failure with hypoxia; I21.4 Non-ST elevation (NSTEMI) myocardial infarction; J12.82 Pneumonia due to coronavirus disease 2019; I13.2 Hypertensive heart and chronic kidney disease with heart failure and with stage 5 chronic kidney disease, or end stage renal disease; G93.49 Other encephalopathy; I50.22 Chronic systolic (congestive) heart failure; I42.9 Cardiomyopathy, unspecified; N25.81 Secondary hyperparathyroidism of renal origin; I25.10 Atherosclerotic heart disease of native coronary artery without angina pectoris; E11.22 Type 2 diabetes mellitus with diabetic chronic kidney disease; F17.210 Nicotine dependence, cigarettes, uncomplicated; I27.20 Pulmonary hypertension, unspecified; I45.9 Conduction disorder, unspecified; E11.59 Type 2 diabetes mellitus with other circulatory complications; D63.1 Anemia in chronic kidney disease; I34.0 Nonrheumatic mitral (valve) insufficiency; Z88.8 Allergy status to other drugs, medicaments and biological substances; Z79.01 Long term (current) use of anticoagulants; Z79.899 Other long term (current) drug therapy; Z95.1 Presence of aortocoronary bypass graft; Z79.4 Long term (current) use of insulin; Z99.2 Dependence on renal dialysis; I49.3 Ventricular premature depolarization; K59.00 Constipation, unspecified; I49.5 Sick sinus syndrome; J44.9 Chronic obstructive pulmonary disease, unspecified; Z95.0 Presence of cardiac pacemaker
CPT/HCPCS: 36415; 36416; 70450; 71045; 80048; 80053; 80306; 82140; 82553; 82728; 83735; 84100; 84484; 85025; 85379; 86140; 90935; 93005; 93306; G0257; G0378; J1815; J2405; J8540

== ENCOUNTER 2021-05-13 20:12 | Inpatient (IN) | payer MEDICARE, MEDICAID ==
[2021-05-13] MEDS ORDERED: Morphine 4 MG/ML VIAL ONE (21:18)
[2021-05-13] MEDS ORDERED: Ondansetron PF 4 MG/2 ML Vial ONE (21:18)
[2021-05-13 21:57] LABS: #Eosinphils 0.2 thou/uL (0.0-0.7); #Lymphocytes 0.8 thou/uL (1.20-3.40); #Monocytes 0.5 thou/uL (0.11-0.59); %Basophils 0.6 % (0.0-1.0); %Eosinophils 2.7 % (0.0-10.0); %Lymphocytes 12.5 % (21.0-51.0); %Monocytes 7.3 % (0.0-10.0); %Neutrophils 76.9 % (42.0-75.0); Hemoglobin 9.3 g/dL (14.0-18.0); Mean Corpuscular HGB CONC 32.9 g/dL (32.0-36.0); Mean Corpuscular Hemoglobin 29.3 pg (27.0-31.0); Mean Platelet Volume 8.2 fL (7.4-10.4); Platelet Count 162 thou/uL (130-400); RBC Distribution Width 14.2 % (11.5-14.5); Red Blood Cell (RBC) Count 3.19 mill/uL (4.70-6.10); White Blood Cell (WBC) Count 6.4 thou/uL (4.8-10.8)
[2021-05-13 22:19] LABS: ALT (SGPT) 7 U/L (8-55); AST (SGOT) 20 U/L (5-34); Albumin 3.4 g/dL (3.4-4.8); Alkaline Phosphatase 74 U/L (40-110); Anion Gap 17 mmol/L (10-20); BUN (Urea Nitrogen) 28 mg/dL (8.4-25.7); Bilirubin, Total 0.4 mg/dL (0.2-1.2); Calc. Creatinine Clearance 0 mL/min (70-130); Calcium 9.3 mg/dL (7.8-10.44); Carbon Dioxide 26 mmol/L (23-31); Chloride 99 mmol/L (98-107); Globulin 4.3 g/dL (2.4-3.5); Glucose 205 mg/dL (83-110); Potassium 3.9 mmol/L (3.5-5.1); Protein, Total 7.7 g/dL (5.8-8.1); Sodium 138 mmol/L (136-145)
[2021-05-14] MEDS ORDERED: Morphine 4 MG/ML VIAL ONE (00:34)
[2021-05-14] MEDS ORDERED: Ondansetron PF 4 MG/2 ML Vial IVP PRN ×2 (00:43→00:52)
[2021-05-14] MEDS ORDERED: hydrALAZINE 20 MG/ML VIAL SLOW IVP PRN (00:43)
[2021-05-14] MEDS ORDERED: Dextrose 50% Abboject 50 ML SYRINGE SLOW IVP PRN (00:43)
[2021-05-14] MEDS ORDERED: Morphine 2 MG/ML VIAL SLOW IVP PRN (00:43)
[2021-05-14] MEDS ORDERED: Dextrose 5% in Water 1,000 ML IV PRN (00:43)
[2021-05-14] MEDS ORDERED: Insulin Regular 300 UNITS/3 ML VIAL SC PRN ×2 (01:12)
[2021-05-14 01:34] LABS: Phosphorus 4.4 mg/dL (2.3-4.7)
[2021-05-14 01:48] VITALS: BMI 22.8
[2021-05-14] MEDS: Acetaminophen/Codeine 30-300mg Tablet PO SCH ×4 (02:21→18:43)
[2021-05-14 06:30] LABS: #Eosinphils 0.2 thou/uL (0.0-0.7); #Lymphocytes 1.4 thou/uL (1.20-3.40); #Monocytes 0.7 thou/uL (0.11-0.59); #Neutrophils 4.4 thou/uL (1.40-6.50); %Basophils 0.5 % (0.0-1.0); %Eosinophils 3.5 % (0.0-10.0); %Lymphocytes 20.3 % (21.0-51.0); %Monocytes 10.2 % (0.0-10.0); %Neutrophils 65.6 % (42.0-75.0); Hemoglobin 8.9 g/dL (14.0-18.0); Mean Corpuscular HGB CONC 33.3 g/dL (32.0-36.0); Mean Corpuscular Hemoglobin 29.2 pg (27.0-31.0); Mean Corpuscular Volume 87.6 fL (78.0-98.0); Platelet Count 142 thou/uL (130-400); RBC Distribution Width 13.9 % (11.5-14.5); Red Blood Cell (RBC) Count 3.05 mill/uL (4.70-6.10); White Blood Cell (WBC) Count 6.7 thou/uL (4.8-10.8)
[2021-05-14 06:43] LABS: Anion Gap 12 mmol/L (10-20); BUN (Urea Nitrogen) 30 mg/dL (8.4-25.7); Calc. Creatinine Clearance 10 mL/min (70-130); Calcium 9.1 mg/dL (7.8-10.44); Carbon Dioxide 31 mmol/L (23-31); Chloride 101 mmol/L (98-107); Glucose 100 mg/dL (83-110); Magnesium 2.1 mg/dL (1.6-2.6); Potassium 3.9 mmol/L (3.5-5.1); Sodium 140 mmol/L (136-145)
[2021-05-14] MEDS ORDERED: Albuterol Sulfate 1.25 MG/3 ML NEB NEB PRN (06:50)
[2021-05-14 06:57] LABS: Phosphorus 5.5 mg/dL (2.3-4.7)
[2021-05-14] MEDS ORDERED: Ferrous Sulfate 325 MG TAB PO SCH (08:00)
[2021-05-14] MEDS: Folic Acid/Vit B Comp W-C PO SCH (08:25)
[2021-05-14] MEDS: Famotidine 20 MG TAB PO SCH ×2 (08:26→21:04)
[2021-05-14] MEDS: Metoprolol Tartrate 25 MG TAB PO SCH ×2 (08:26→21:05)
[2021-05-14] MEDS: Ascorbic Acid 500 mg Chewable Tablet PO SCH (08:26)
[2021-05-14] MEDS: Senokot S 8.6-50 MG TAB PO SCH ×2 (08:26→21:07)
[2021-05-14] MEDS ORDERED: Non-Formulary Item 1 EACH (Isosorbide Dinitrate [Isosorbide Dinitrate] 30 MG Tablet) PO SCH (09:00)
[2021-05-14] MEDS ORDERED: Ascorbic Acid 500 mg Chewable Tablet PO SCH (09:00)
[2021-05-14] MEDS: Isosorbide Dinitrate 20 MG TAB PO SCH ×2 (10:18→21:04)
[2021-05-14] MEDS: Atorvastatin Calcium 20 MG TAB PO SCH (10:18)
[2021-05-14] MEDS: Ferrous Sulfate 325 MG TAB PO SCH (10:19)
[2021-05-14] MEDS: Polyethylene Glycol 3350 17 GM Packet PO SCH (10:19)
[2021-05-14] MEDS: Acetaminophen/Codeine 30-300mg Tablet PO PRN (10:45)
[2021-05-14 14:17] LABS: SARS-CoV-2 PCR by NAA Not Detected (NotDetected)
[2021-05-14] MEDS: Cyclobenzaprine 10 MG TAB PO PRN ×2 (18:17→21:08)
[2021-05-14] MEDS ORDERED: Folic Acid/Vit B Comp W-C PO SCH (21:00)
[2021-05-14] MEDS: Donepezil HCl 5 MG TAB PO SCH (21:04)
[2021-05-14] MEDS: Mirtazapine 15 MG Soltab PO SCH (21:06)
[2021-05-14] MEDS: traZODone HCl 50 MG TAB PO SCH (21:07)
[2021-05-14] MEDS: Apixaban 2.5 MG TAB PO SCH (21:09)
[2021-05-15] MEDS: Acetaminophen/Codeine 30-300mg Tablet PO SCH ×4 (00:51→18:03)
[2021-05-15 05:12] LABS: Anion Gap 17 mmol/L (10-20); BUN (Urea Nitrogen) 43 mg/dL (8.4-25.7); Calc. Creatinine Clearance 9 mL/min (70-130); Calcium 9.5 mg/dL (7.8-10.44); Carbon Dioxide 28 mmol/L (23-31); Chloride 99 mmol/L (98-107); Glucose 118 mg/dL (83-110); Magnesium 2.3 mg/dL (1.6-2.6); Phosphorus 6.6 mg/dL (2.3-4.7); Potassium 4.9 mmol/L (3.5-5.1); Sodium 139 mmol/L (136-145)
[2021-05-15] MEDS: Folic Acid/Vit B Comp W-C PO SCH (08:49)
[2021-05-15] MEDS: Isosorbide Dinitrate 20 MG TAB PO SCH ×2 (08:49→21:03)
[2021-05-15] MEDS: Ferrous Sulfate 325 MG TAB PO SCH (08:49)
[2021-05-15] MEDS: Senokot S 8.6-50 MG TAB PO SCH ×2 (08:49→21:05)
[2021-05-15] MEDS: Apixaban 2.5 MG TAB PO SCH ×2 (08:49→21:04)
[2021-05-15] MEDS: Famotidine 20 MG TAB PO SCH ×2 (08:49→21:03)
[2021-05-15] MEDS: Atorvastatin Calcium 20 MG TAB PO SCH (08:51)
[2021-05-15] MEDS: Ascorbic Acid 500 mg Chewable Tablet PO SCH (08:51)
[2021-05-15] MEDS: Metoprolol Tartrate 25 MG TAB PO SCH ×2 (08:51→21:02)
[2021-05-15] MEDS: Polyethylene Glycol 3350 17 GM Packet PO SCH (08:54)
[2021-05-15] MEDS: Acetaminophen/Codeine 30-300mg Tablet PO PRN (10:17)
[2021-05-15] MEDS: traZODone HCl 50 MG TAB PO SCH (21:02)
[2021-05-15] MEDS: Donepezil HCl 5 MG TAB PO SCH (21:04)
[2021-05-15] MEDS: Mirtazapine 15 MG Soltab PO SCH (21:05)
[2021-05-16] MEDS: Acetaminophen/Codeine 30-300mg Tablet PO SCH ×5 (00:02→18:06)
[2021-05-16 05:55] LABS: Anion Gap 16 mmol/L (10-20); BUN (Urea Nitrogen) 53 mg/dL (8.4-25.7); Calc. Creatinine Clearance 8 mL/min (70-130); Calcium 9.4 mg/dL (7.8-10.44); Carbon Dioxide 27 mmol/L (23-31); Chloride 101 mmol/L (98-107); Glucose 84 mg/dL (83-110); Magnesium 2.1 mg/dL (1.6-2.6); Phosphorus 7.1 mg/dL (2.3-4.7); Potassium 4.5 mmol/L (3.5-5.1); Sodium 139 mmol/L (136-145)
[2021-05-16 06:07] LABS: HBSAg Index 0.24 S/CO (0-0.99); Hep B Surf Ag Non-Reactive S/CO (NonReactive)
[2021-05-16] MEDS: Apixaban 2.5 MG TAB PO SCH ×2 (11:10→21:22)
[2021-05-16] MEDS: Ascorbic Acid 500 mg Chewable Tablet PO SCH (11:20)
[2021-05-16] MEDS: Ferrous Sulfate 325 MG TAB PO SCH (11:20)
[2021-05-16] MEDS: Atorvastatin Calcium 20 MG TAB PO SCH (11:20)
[2021-05-16] MEDS: Isosorbide Dinitrate 20 MG TAB PO SCH ×2 (11:21→21:22)
[2021-05-16] MEDS: Folic Acid/Vit B Comp W-C PO SCH (11:21)
[2021-05-16] MEDS: Polyethylene Glycol 3350 17 GM Packet PO SCH (12:18)
[2021-05-16] MEDS: Metoprolol Tartrate 25 MG TAB PO SCH ×2 (12:18→21:23)
[2021-05-16] MEDS: Senokot S 8.6-50 MG TAB PO SCH ×2 (12:18→21:25)
[2021-05-16] MEDS: Donepezil HCl 5 MG TAB PO SCH (21:22)
[2021-05-16] MEDS: Famotidine 20 MG TAB PO SCH (21:22)
[2021-05-16] MEDS: Mirtazapine 15 MG Soltab PO SCH (21:24)
[2021-05-16] MEDS: traZODone HCl 50 MG TAB PO SCH (21:25)
[2021-05-17] MEDS: Acetaminophen/Codeine 30-300mg Tablet PO SCH ×4 (00:25→17:52)
[2021-05-17 06:29] LABS: Anion Gap 11 mmol/L (10-20); BUN (Urea Nitrogen) 30 mg/dL (8.4-25.7); Calc. Creatinine Clearance 12 mL/min (70-130); Calcium 8.9 mg/dL (7.8-10.44); Carbon Dioxide 33 mmol/L (23-31); Chloride 98 mmol/L (98-107); Glucose 74 mg/dL (83-110); Phosphorus 4.7 mg/dL (2.3-4.7); Potassium 3.7 mmol/L (3.5-5.1); Sodium 138 mmol/L (136-145)
[2021-05-17] MEDS: Polyethylene Glycol 3350 17 GM Packet PO SCH (09:03)
[2021-05-17] MEDS: Apixaban 2.5 MG TAB PO SCH ×2 (09:03→20:26)
[2021-05-17] MEDS: Ascorbic Acid 500 mg Chewable Tablet PO SCH (09:03)
[2021-05-17] MEDS: Atorvastatin Calcium 20 MG TAB PO SCH (09:03)
[2021-05-17] MEDS: Metoprolol Tartrate 25 MG TAB PO SCH ×2 (09:03→20:31)
[2021-05-17] MEDS: Ferrous Sulfate 325 MG TAB PO SCH (09:03)
[2021-05-17] MEDS: Isosorbide Dinitrate 20 MG TAB PO SCH ×2 (09:04→20:26)
[2021-05-17] MEDS: Senokot S 8.6-50 MG TAB PO SCH ×2 (09:04→20:25)
[2021-05-17] MEDS: Folic Acid/Vit B Comp W-C PO SCH (09:04)
[2021-05-17] MEDS: Famotidine 20 MG TAB PO SCH (20:26)
[2021-05-17] MEDS: Mirtazapine 15 MG Soltab PO SCH (20:26)
[2021-05-17] MEDS: traZODone HCl 50 MG TAB PO SCH (20:26)
[2021-05-17] MEDS: Donepezil HCl 5 MG TAB PO SCH (20:26)
[2021-05-18] MEDS: Acetaminophen/Codeine 30-300mg Tablet PO SCH ×3 (00:18→12:25)
[2021-05-18] MEDS: Ascorbic Acid 500 mg Chewable Tablet PO SCH (09:08)
[2021-05-18] MEDS: Isosorbide Dinitrate 20 MG TAB PO SCH (09:08)
[2021-05-18] MEDS: Ferrous Sulfate 325 MG TAB PO SCH (09:08)
[2021-05-18] MEDS: Metoprolol Tartrate 25 MG TAB PO SCH (09:08)
[2021-05-18] MEDS: Folic Acid/Vit B Comp W-C PO SCH (09:08)
[2021-05-18] MEDS: Atorvastatin Calcium 20 MG TAB PO SCH (09:09)
[2021-05-18] MEDS: Polyethylene Glycol 3350 17 GM Packet PO SCH (09:10)
[2021-05-18] MEDS: Senokot S 8.6-50 MG TAB PO SCH (09:10)
[2021-05-18] MEDS: Apixaban 2.5 MG TAB PO SCH (09:34)
[2021-05-18 15:28] VITALS: BP 99/52; TEMP 98.3
== END 2021-05-18 16:15 | DRG 555 ==
LOC: ERS 20:12 → SURG B 05-14 00:43
PROVIDERS: ADMIT Surgery; ATTEND Surgery
PROC: 5A1D70Z Performance of Urinary Filtration, Intermittent, Less than 6 Hours Per Day (ICD-10-PCS; principal; 2021-05-16)
DX: M25.551 Pain in right hip (principal); N18.6 End stage renal disease; I48.92 Unspecified atrial flutter; I13.2 Hypertensive heart and chronic kidney disease with heart failure and with stage 5 chronic kidney disease, or end stage renal disease; N25.81 Secondary hyperparathyroidism of renal origin; I50.22 Chronic systolic (congestive) heart failure; Z20.822 Contact with and (suspected) exposure to COVID-19; W18.30XA Fall on same level, unspecified, initial encounter; J44.9 Chronic obstructive pulmonary disease, unspecified; F03.90 Unspecified dementia, unspecified severity, without behavioral disturbance, psychotic disturbance, mood disturbance, and anxiety; E11.22 Type 2 diabetes mellitus with diabetic chronic kidney disease; I48.91 Unspecified atrial fibrillation; D63.1 Anemia in chronic kidney disease; I25.10 Atherosclerotic heart disease of native coronary artery without angina pectoris; Z99.2 Dependence on renal dialysis; Z95.1 Presence of aortocoronary bypass graft; Z87.891 Personal history of nicotine dependence; Z88.8 Allergy status to other drugs, medicaments and biological substances; Z79.899 Other long term (current) drug therapy
CPT/HCPCS: 36415; 36416; 70450; 72125; 72170; 80048; 80053; 83735; 84100; 85025; 87340; 90935; 93005; 93010; 96374; 96375; 96376; G0257; J2270; J2405; U0003; U0005